=== PATIENT | male | born 1955 | race Caucasian/White ===

== ENCOUNTER 2023-03-31 14:00 | Emergency (ER) | payer MEDICARE, SELFPAY ==
[2023-03-31] VITALS (44 sets, daily range): BP systolic 113–169; BP diastolic 70–94; PULSE 69–91; RESP 13–30; TEMP 36.4; O2SAT 93–98; BMI 28.5
--- NOTE | 2023-03-31 14:08 | ECG_ITS ---
The 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
--- NOTE | 2023-03-31 14:08 | XR_ITS ---
The [address] [address] Patient Name: GABINO TALBERT MRN: [id number] date: 1955 Sex: M Assigned Patient Location: ER Current Patient Location: ED.MAIN Accession/Order Number: [id number] Exam Date: 03/31/2023 14:30 Report Date: 03/31/2023 14:49 At the request of: GABINO GONSALEZ Procedure: XR chest 1V EXAM: XR chest 1V HISTORY: . chest pain . COMPARISON: None. TECHNIQUE: Single view of the chest FINDINGS: Heart and vascularity are unremarkable. Lungs are free of focal infiltrates. EKG leads overlie the chest. XR/XR chest 1V IMPRESSION: No acute heart or lung disease identified. Electronically authenticated by: BLAS CRUZ Date: 03/31/2023 14:49
[2023-03-31 14:25] LABS: Basophils Percent Auto 0.4 % (0.2-2.0); Eosinophils Absolute Auto 0.6 10^3/uL (0.0-0.7); Eosinophils Percent Auto 6.7 % (0.9-7.0); Hematocrit 41.3 % (42.0-54.0); Hemoglobin 14.3 g/dL (14.0-18.0); Immature Granulocytes Abs Auto 0.03 10^3/uL (0.00-0.03); Immature Granulocytes Pct Auto 0.3 % (0.0-0.5); Lymphocytes Absolute Auto 1.3 10^3/uL (1.2-3.8); Lymphocytes Percent Auto 14.6 % (20.5-60.0); Mean Corpuscular HGB Conc 34.6 g/dL (29.9-35.2); Mean Corpuscular Hemoglobin 32.4 pg (25.9-34.0); Mean Corpuscular Volume 93.7 fL (80.0-94.0); Mean Platelet Volume 9.6 fL (9.5-13.5); Monocytes Absolute Auto 0.7 10^3/uL (0.3-0.8); Neutrophils Absolute Auto 6.3 10^3/uL (1.4-6.5); Platelet Count 211 10^3/uL (150-450); Red Blood Count 4.41 10^6/uL (4.70-6.10); Red Cell Distribution Width 12.3 % (11.0-15.0)
[2023-03-31 14:47] LABS: Anion Gap 12.4; Calcium 8.9 mg/dL (8.5-10.1); Carbon Dioxide 26.5 mmol/L (21.0-32.0); Chloride 102 mmol/L (98-107); Estimated GFR (African America >60 (>=60); Estimated GFR (Non-African Ame 57 (>=60); Glucose 110 mg/dL (74-106); Potassium 3.9 mmol/L (3.5-5.1); Sodium 137 mmol/L (136-145)
[2023-03-31 14:54] LABS: Troponin I High Sensitivity 227.3 pg/mL (4.0-76.1)
--- NOTE | 2023-03-31 15:52 | ED.CHESTPAI1 ---
HPI - Chest Pain General Chief Complaint: Chest Pain Stated Complaint: CHEST PAIN Time Seen by Provider: 03/31/23 14:07 Source: patient Mode of arrival: walk-in Limitations: no limitations History of Present Illness HPI narrative: 3 days of intermittent anterior chest pressure especially while or after exerting himself. Patient told me that the symptoms has become more persistent over the last 12 hours. Pain is non-radiating. No associated abdominal pain but he has some nausea. No shortness of breath. No recent injury to the chest, no fever or chills. PMHx includes HTN and borderline cholesterol. He told me that he had a stress test about a year ago and it was fine . His PCP is Dr Peterson. Related Data Allergies Allergy/AdvReac Type Severity Reaction Status Date / Time Iodinated Contrast Media Allergy Intermediate Verified 03/31/23 14:05 [facility] Social History Smoking status: Never smoker Exam Narrative Exam Narrative: Nurses notes and vital signs reviewed and patient is not hypoxic. afebrile General: Well-appearing and in no apparent distress. Skin: Warm, dry, no pallor noted. No rash. Eye: Pupils are equal, round and EOMI. No scleral icterus. Cardiovascular: Regular Rate and Rhythm without murmur, gallop or rub. Respiratory: No accessory muscle use or respiratory distress. Lungs are clear to auscultation, no wheezing, rales or rhonchi Chest Wall: no tenderness, crepitus or subcutaneous emphysema Musculoskeletal: normal ROM, no calf or popliteal tenderness, no lower extremity edema/swelling GI: Abdomen is soft, non-distended. Normal bowel sounds. No tenderness to palpation. No rebound, guarding, or rigidity noted. Neurological: A&O x4. No cranial nerve dysfunction observed. No truncal ataxia. Moves all extremities. Sensation intact. Psychiatric: Cooperative and interactive. Normal mood and affect. Constitutional Vital Signs, click to edit/add: Last Vital Signs Temp 97.6 F 03/31/23 14:03 Pulse 78 03/31/23 15:40 Resp 18 03/31/23 15:40 BP 157/87 H 03/31/23 15:37 Pulse Ox 98 03/31/23 15:40 O2 Del Method Room Air 03/31/23 16:45 Course Vital Signs Vital signs: Vital Signs Temperature 97.6 F 03/31/23 14:03 Pulse Rate 83 03/31/23 14:03 Respiratory Rate 16 03/31/23 14:03 Blood Pressure 169/94 H 03/31/23 14:03 Pulse Oximetry 98 03/31/23 14:03 Oxygen Delivery Method Room Air 03/31/23 14:03 Temperature 97.6 F 03/31/23 14:03 Pulse Rate 78 03/31/23 15:40 Respiratory Rate 18 03/31/23 15:40 Blood Pressure 157/87 H 03/31/23 15:37 Pulse Oximetry 98 03/31/23 15:40 Oxygen Delivery Method Room Air 03/31/23 16:45 MDM - Chest Pain MDM Narrative Medical decision making narrative: Patient was placed on athletic monitor and EKG obtained. Blood drawn and sent for evaluation. chest x-ray obtained. Troponin was found to be elevated consistent with non-ST elevation myocardial infarction. He was given aspirin and started on heparin - IV bolus and IV drip. He had a mild amount of anterior chest pressure when I talked with him and therefore he was ordered to receive a dose of sublingual nitroglycerin. Results discussed with the patient and he was agreeable to be transferred to [facility] for further evaluation treatment. I spoke with Dr Rodriguez - the hospitalist - and he accepted the patient's transfer to their facility and admission to [facility]. The patient was informed and is agreeable. Lab Data Attestation: I reviewed the patient's lab results. Labs: Lab Results 03/31/23 Range/Units 14:19 WBC 9.0 (4.0-11.0) 10^3/uL RBC 4.41 L (4.70-6.10) 10^6/uL Hgb 14.3 (14.0-18.0) g/dL Hct 41.3 L (42.0-54.0) % MCV 93.7 (80.0-94.0) fL MCH 32.4 (25.9-34.0) pg MCHC 34.6 (29.9-35.2) g/dL RDW 12.3 (11.0-15.0) % Plt Count 211 (150-450) 10^3/uL MPV 9.6 (9.5-13.5) fL Neut % (Auto) 70.0 (43.0-75.0) % Lymph % (Auto) 14.6 L (20.5-60.0) % [place] % (Auto) 8.0 (1.7-12.0) % Eos % (Auto) 6.7 (0.9-7.0) % Baso % (Auto) 0.4 (0.2-2.0) % Neut # (Auto) 6.3 (1.4-6.5) 10^3/uL Lymph # (Auto) 1.3 (1.2-3.8) 10^3/uL [place] # (Auto) 0.7 (0.3-0.8) 10^3/uL Eos # (Auto) 0.6 (0.0-0.7) 10^3/uL Baso # (Auto) 0.0 (0.0-0.1) 10^3/uL Abs Immat Gran (auto) 0.03 (0.00-0.03) 10^3/uL Imm/Tot Granulo (auto) 0.3 (0.0-0.5) % PT 10.2 (9.0-11.6) sec INR 0.96 APTT 28.1 (22.3-36.2) sec D-Dimer 0.30 (<=0.59) mg/L FEU Sodium 137 (136-145) mmol/L Potassium 3.9 (3.5-5.1) mmol/L Chloride 102 (98-107) mmol/L Carbon Dioxide 26.5 (21.0-32.0) mmol/L Anion Gap 12.4 BUN 15.0 (7.0-18.0) mg/dL Creatinine 1.25 (0.70-1.30) mg/dL Est GFR ( Amer) >60 (>=60) Est GFR (Non-Af Amer) 57 L (>=60) BUN/Creatinine Ratio 12.0 Glucose 110 H (74-106) mg/dL Calcium 8.9 (8.5-10.1) mg/dL Troponin I High Sens 227.3 H* (4.0-76.1) pg/mL NT-Pro-B Natriuret Pep 121.0 (<=900.0) pg/mL ECG Data Attestation: I personally reviewed and interpreted this ECG as follows: Interpretation: EKG interpretation: Emergency Department physician interpretation. Normal sinus rhythm at 72bpm. Normal axis, normal intervals and T wave inversion in lead aVL. no ST segment elevation or depression. Discharge Plan Discharge Chief Complaint: Chest Pain Clinical Impression: Acute non-ST elevation myocardial infarction (NSTEMI) Patient Disposition: [facility] Time of Disposition Decision: 17:50 Discharge Location: [facility]
[2023-03-31 16:05] LABS: INR 0.96; Prothrombin Time 10.2 sec (9.0-11.6)
[2023-03-31 16:06] LABS: Partial Thromboplastin Time 28.1 sec (22.3-36.2)
[2023-03-31] MEDS: ASPIRIN 81 MG TAB.CHEW 162 MG PO (16:06)
[2023-03-31] MEDS: NITROGLYCERIN 0.4 MG BOTTLE PO (16:06)
[2023-03-31] MEDS: HEPARIN SODIUM (PORCINE) 5,000 UNIT/ML VIAL 4000 UNIT IV (16:08)
[2023-03-31] MEDS: HEPARIN SODIUM,PORCINE/D5W 25,000 UNIT/500 ML IV.SOLN 22.861 UNIT IV (16:11)
[2023-03-31 18:31] LABS: Troponin I High Sensitivity 381.2 pg/mL (4.0-76.1)
== END 2023-03-31 19:23 | disposition short-term general hospital (02) ==
PROVIDERS: Emergency Provider Emergency Medicine; PCP Family Medicine
DX: I21.4 Non-ST elevation (NSTEMI) myocardial infarction (principal); I10 Essential (primary) hypertension
CPT/HCPCS: 36415; 71045; 80048; 83880; 84484; 85025; 85378; 85610; 85730; 93005; 96374; 99285

== ENCOUNTER 2023-06-21 10:46 | Outpatient (OUT) | payer MEDICARE, SELFPAY ==
[2023-06-21 11:48] LABS: Prostate Specific Antigen Dx 4.35 ng/mL (<=4.00)
== END 2023-06-21 10:47 | disposition home or self-care (01) ==
LOC: LAB 10:48
PROVIDERS: PCP Family Medicine; Visit Provider Physician Assistant
DX: N40.1 Benign prostatic hyperplasia with lower urinary tract symptoms (principal)
CPT/HCPCS: 36415; 84153

== ENCOUNTER 2024-06-23 08:00 | Outpatient (OUT) | payer MEDICARE, SELFPAY ==
--- OUTSIDE RECORDS SUMMARY | 2024-06-23 08:18 | XMS_ITS | CCD ---
Author Organization [facility] Care Team Providers Care Public Relations Intern Name Role Phone MARKO CISNEROS Primary Care Physician Marko Cisneros BLAYNE, DR MARKO Egan Primary Care Unavailable DANIEL Ramirez, DR CHRIS Goel Consulting Unavaila ble DANIEL Ramirez, DR CHRIS Goel Attending Unavaila ble DANIEL Ramirez, DR CHRIS Goel Admitting Unavaila ble CISNEROS, DR MARKO Egan Primary Care Unavailable WEST, DR BLAS Cortes Consulting Unavailable LILLIAN ., DMOINIQUE Attending Unavailable LILLIAN ., DOMINIQUE Admitting Unavailable LILLIAN ., DOMINIQUE Consulting Unavailable BLAYNE, DR MARKO Egan Primary Care Unavailable REQUEST, DR CRAVEN LISTED Attending Unavaila ble REQUEST, DR CRAVEN LISTED Admitting Unavaila ble REQUEST, DR CRAVEN LISTED Consulting Unavaila ble ZIEBER, DR MAYRA Darling Consulting Unavailable CISNEROS, DR MARKO Egan Attending Unavailable CISNEROS, DR MARKO Egan Admitting Unavailable CISNEROS, DR MARKO Egan Primary Care Unavailable CISNEROS, DR MARKO Egan Consulting Unavailable CISNEROS, DR MARKO Egan Consulting Unavailable CISNEROS, DR MARKO Egan Attending Unavailable CISNEROS, DR MARKO Egan Admitting Unavailable CISNEROS, DR MARKO Egan Primary Care Unavailable MD Marko Cisneros Primary Care Provider [phone] DO Shyam Rodriguez Admit Provider MD Gold Yadav Other Provider MD Meagan Crespo Other Provider MD Kay Martini Attending Provider Meagan Crespo Unavailable Zina Bishop Unavailable EBEN TEE Attending Unavailable ZINA BISHOP Referring Unavailable Marko Cisneros MD Primary Care Provider Carolyn Mccartney MD Attending Provider [phone] LILIANA HEREDIA Attending LILIANA Frausto Attending Carolyn Carlisle Admitting Unavailable Carolyn Mccartney Attending Marko Cardenas Primary Care Unavailable Allergies Allergy Classification Reported Allergen(s) Allergy Type Date of Onset Reaction(s) Facility (3 sources) Contrast media; 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: [Contrast Dye] Drug allergy Unknown (qualifier value) [facility] (12 sources) Terazosin; 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: [terazosin] Drug Allergy 11-02-19 18 Syncope (disorder) [facility] (7 sources) Contrast media Propensity to adverse reactions Unknown [facility] Other (4 sources) moxifloxacin Drug Allergy Unknown [facility] Other (1 source) Fluorouracil Drug Allergy [facility] (1 source) Iodine (And Iodine Containting Drugs) Drug allergy (disorder) [facility] (2 sources) Allergies Reconciled Propensity to adverse reactions Unknown [facility] Other (2 sources) patient allergy list reviewed by nurse or physicia Propensity to adverse reactions 12-26-19 Comment:Done [facility] Other (10 sources) Avelox *FLUOROQUINOLONE S* Propensity to adverse reactions 08-07-19 15 Unknown, [facility] Comment on above: Onset Date: 08/07/19 15 (6 sources) Gadolinium-Conta ining Contrast Medi Propensity to adverse reactions 03-31-20 23 [facility] (6 sources) Iodinated [facility] Media Propensity to adverse reactions 03-31-20 23 Hives, Difficulty Breathing [facility] (5 sources) Terazosin Drug Allergy 08-08-19 24 Unknown Reaction [facility] Comment on above: Onset Date: 11/02/19 18 Medications Current Medications Medication Drug Class(es) Dates Sig (Normalized) Sig (Original) Aspir-81 (5 sources) Aspir-81 Active aspirin 81 mg chewable tablet (8 sources) Platelet Aggregation Inhibitor, Nonsteroidal Anti-inflammatory Drug Start: 04-01-2023 take 1 tablet by mouth once daily Aspirin 81 mg Tablet,Chewable Active 81 MG PO Daily April 01, 2023 12:00am take 1 tablet by didier th every twenty-four hours Aspirin Adult Low Dose 81 MG 1 tablet Orally Once a day Active atorvastatin 40 mg oral tablet (19 sources) HMG-CoA Reductase Inhibitor Start: 05-29-2024 take 1 tablet by mouth once daily Atorvastatin 40 mg tablet Active 40 MG PO Daily May 29, 2024 11:41am Start: 07-29-2023 End: 05-29-2024 take 1 tablet by mouth once daily in the evening Atorvastatin 40 mg tablet Discontinued 0 .ROUTE .COMPLEX 90 January 07, 2024 7:31am May 29, 2024 11:41am TAKE 1 TABLET BY MOUTH EVERY EVENING Start: 04-02-2023 End: 07-29-2023 take 1 tablet by mouth once daily in the evening Atorvastatin 40 mg Tablet Discontinued 40 MG PO Every evening 30 April 02, 2023 12:00am July 29, 2023 12:09pm carvedilol 6.25 mg oral tablet (19 sources) alpha-Adrenergic Jessica, beta-Adrenergic Jessica Start: 05-29-2024 take 1 tablet by mouth twice daily Carvedilol 6.25 mg tablet Active 6.25 MG PO Twice daily May 29, 2024 11:41am Start: 07-29-2023 End: 05-29-2024 take 1 tablet by mouth twice daily at mealtime Carvedilol 6.25 mg tablet Discontinued 0 .ROUTE .COMPLEX 180 January 07, 2024 7:31am May 29, 2024 11:41am TAKE 1 TABLET BY MOUTH TWICE DAILY WITH MEALS FOR 30 DAYS Start: 04-02-2023 End: 07-29-2023 take 1 tablet by mouth twice daily at mealtime Carvedilol 6.25 mg Tablet Discontinued 6.25 MG PO Twice daily with meals April 02, 2023 12:00am July 29, 2023 12:09pm doxycycline monohydrate 100 mg oral capsule (1 source) Tetracycline-class Drug Start: 05-04-2023 take 1 capsule by mouth every twelve hours Doxycycline Monohydrate 100 MG 1 capsule Orally every 12 hrs for 10 days Apr, Active losartan potassium 25 mg oral tablet (20 sources) Angiotensin 2 Receptor Jessica Start: 01-10-2025 take 1 tablet by mouth once daily Losartan 25 mg tablet Active 25 MG PO Daily May 29, 2024 11:41am Start: 07-12-2023 End: 05-29-2024 take 1 tablet by mouth once daily Losartan 25 mg tablet Discontinued 0 .ROUTE .COMPLEX 90 January 07, 2024 7:31am May 29, 2024 11:41am TAKE 1 TABLET BY MOUTH EVERY DAY Start: 06-14-2022 End: 07-12-2023 take 1 tablet by mouth once daily Losartan 25 mg tablet Discontinued 25 MG PO Daily April 01, 2023 12:00am July 12, 2023 10:02am Nitro Sublingual 0.4 (1 source) Nitro Sublingual 0.4 Active nitroglycerin 0.4 mg sublingual tablet (8 sources) Nitrate Vasodilator Start: 04-02-2023 Nitroglycerin 0.4 mg tablet, sublingual Active 0.4 MG SUBLINGUAL Q5M as needed for chest pain April 02, 2023 12:00am do not exceed 3 doses per episode Nitroglycerin 0. 4 MG as directed for chest pain take one every 5 mins X 3 Active Oxymetazoline (1 source) Oxymetazoline HC l 0.05 % 4 sprays (2 sprays in each nostril) Nasally Twice a day Active predniSONE 20 mg oral tablet (1 source) Start: 05-04-20 take 1 tablet by mouth every twelve hours prednisone 20 MG 1 tablet Orally BID for 5 Apr, Active tamsulosin hydrochloride 0.4 mg oral capsule (2 sources) alpha-Adrenergic Jessica Start: 06-19-19 take 1 capsule by mouth once daily Flomax 0.4 mg Cap 0.4 mg = 1 cap(s), Oral, Daily, start 3-5 days prior to flying, # 30 cap(s), Refills(s) 0, Pharmacy: [facility]/pharmacy #[id number], 184, cm, 06/19/22 8:33:00 EST, Height/Length Dosing, 91, kg, 06/19/22 8:33:00 EST, Weight Dosing Start Date: 06/19/22 Status: Ordered triamcinolone acetonide 0.055 mg/actuat metered dose nasal spray (2 sources) Corticosteroid Start: 05-21-19 20 Nasacort Allergy 24HR nasal spray spray(s), Nasal, Daily, Refill(s) 0 Start Date: 05/21/19 Status: Ordered Completed/Discontinued Medications Medication Drug Class(es) Dates Sig (Normalized) Sig (Original) amoxicillin 875 mg / clavulanate 125 mg oral tablet (3 sources) Penicillin-class Antibacterial Start: 04-22-2024 End: 05-29-2024 take 1 tablet by mouth twice daily Amoxicillin-Pot Clavulanate 875-125 mg tablet Discontinued 1 TAB PO Twice daily April 22, 2024 12:00am May 29, 2024 11:40am Start: 03-15-2023 take 1 tablet by didier th every twelve hours Amoxicillin-Pot Clavulanate 875-125 MG 1 tablet Orally every 12 hrs for 10 day(s) Feb, Active fluticasone furoate 0.0275 mg/actuat metered dose nasal spray (5 sources) Corticosteroid Flonase Sensimis t 27.5 MCG/SPRAY 2 sprays (1 spray in each nostril) Nasally Once a day for 30 days Not-Taking/PRN Flonase Sensimis t 27.5 MCG/SPRAY 2 sprays (1 spray in each nostril) Nasally Once a day for 30 days Active lovastatin 20 mg oral tablet (2 sources) HMG-CoA Reductase Inhibitor Start: 06-14-2022 take 1 tablet by mouth once daily lovastatin 20 mg Tab 90 EA, TAKE 1 TABLET BY MOUTH EVERY DAY, Refills(s) 0 Start Date: 06/14/22 Status: Ordered pantoprazole 40 mg delayed release oral tablet (2 sources) Proton Pump Inhibitor Start: 04-02-2024 End: 05-29-2024 take 1 tablet by mouth once daily Pantoprazole 40 mg tablet,delayed release (DR/EC) Discontinued 40 MG PO Daily 56 56 April 02, 2024 12:00am May 29, 2024 11:40am ticagrelor 90 mg oral tablet (9 sources) Start: 04-02-2023 End: 04-14-2024 take 1 tablet by mouth twice daily Ticagrelor (Brilinta) 90 mg Tablet Discontinued 90 MG PO Twice daily 180 90 April 02, 2023 12:00am April 14, 2024 12:02pm Problems Active Problems Problem Classification Problem Date Documented Da te Episodic/Chronic Abdominal pain (6 sources) Epigastric pain; 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: [Epigastric pain] 03-11-2024 Episodic Acute myocardial infarction (12 sources) Myocardial infarction; 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: [Non-ST elevation (NSTEMI) myocardial infarction] 03-31-2023 Chronic Comment on above: Problem List clean-u p per request of Phys. EHR Cmte Allergic reactions (2 sources) Allergic contact dermatitis; 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: [Allergic contact dermatitis, unspecified cause] Episodic Coronary atherosclerosis and other heart disease (11 sources) Coronary arteriosclerosis; 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: [Atherosclerotic heart disease of [place] coronary artery without angina pectoris] Chronic Disorders of lipid metabolism (20 sources) Hyperlipidemia; 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: [Hyperlipidemia, unspecified] 05-06-2019 Chronic Comment on above: Problem List clean-u p per request of Phys. EHR Cmte Esophageal disorders (6 sources) Gastroesophageal reflux disease; 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: [Gastro-esophageal reflux disease without esophagitis] 03-11-2024 Chronic Essential hypertension (20 sources) Hypertensive disorder; 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: [Essential hypertension] Onset: 8 05-06-2019 Chronic Comment on above: Problem List clean-u p per request of Phys. EHR Cmte Genitourinary symptoms and ill-defined conditions (12 sources) Dysuria; 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: [Seth hematuria] 05-06-2019 Episodic Heart valve disorders (1 source) Nonrheumatic pulmonary valve insufficiency; 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: [NONRHEUMATIC PULMONARY VALVE INSUFF] Onset: 3 Chronic Hyperplasia of prostate (4 sources) Benign prostatic hypertrophy with outflow obstruction; 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: [Benign prostatic hyperplasia with lower urinary tract symptoms] Onset: 3 Chronic Nonspecific chest pain (7 sources) Chest pain, unspecified; 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: [Other chest pain] Onset: 3 Episodic Other aftercare (1 source) 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; 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: [OTH CARE HOME CURRENT DRUG THERAPY] Onset: 3 Episodic Other circulatory disease (2 sources) Elevated blood-pressure reading without diagnosis of hypertension; 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: [Elevated blood-pressure reading, without diagnosis of hypertension] Episodic Other congenital anomalies (2 sources) Congenital spondylolysis of lumbosacral region; 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: [Congenital spondylolysis, lumbosacral region] Onset: 7 Chronic Other diseases of kidney and ureters (1 source) Urinary tract obstruction; 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: [Other obstructive and reflux uropathy] Onset: 3 Episodic Other gastrointestinal disorders (3 sources) Dysphagia; 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: [Dysphagia, unspecified] 03-11-2024 Episodic Other gastrointestinal disorders (3 sources) Dysphagia, unspecified; 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: [Dysphagia, unspecified] 03-11-2024 Episodic Other male genital disorders (2 sources) Impotence 05-24-2020 Chronic Other nutritional; endocrine; and metabolic disorders (2 sources) Body mass index 25-29 - overweight; 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: [Body mass index (BMI) 27.0-27.9, adult] Episodic Other screening for suspected conditions (not mental disorders or infectious disease) (7 sources) Raised prostate specific antigen; 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: [Elevated prostate specific antigen [PSA]] Onset: 3 Episodic Other upper respiratory disease (14 sources) Allergic rhinitis; 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: [Allergic rhinitis, unspecified] Onset: 5 08-08-2023 Chronic Other upper respiratory infections (3 sources) Acute recurrent maxillary sinusitis; 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: [Acute maxillary sinusitis] Episodic Otitis media and related conditions (1 source) Unspecified nonsuppurative otitis media, left ear Episodic Screening and history of mental health and substance abuse codes (3 sources) H/O: Disorder; 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: [Personal history of nicotine dependence] Onset: 3 Episodic Spondylosis; intervertebral disc disorders; other back problems (4 sources) Low back pain; 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: [Low back pain, unspecified] Onset: 7 Episodic Unclassified (2 sources) Finding of sensation of bladder 05-06-2019 Unclassified (1 source) CONTACT W/AND (SUSP) EXPOS COVID-19; 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: [CONTACT W/AND (SUSP) EXPOS COVID-19] Onset: 3 Past or Other Problems Problem Classification Problem Date Documented Da te Episodic/Chronic Other lower respiratory disease (4 sources) Dyspnea; 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: [Dyspnea, unspecified] Onset: 08-06-2014 Episodic Results Test Name Value Interpretation Reference Range Facility Pathology study report docum entOrdered By: Hua Rebollar on 04-03-2024 Pathology study [facility] Other Phone: Bebeto 04-02-2024 L -- ---- Specimen: [id number] Received: 04/02/24 Status: THEODORA Garcia Num: [id number] Spec Type: Surgical Subm Dr: Carolyn Mccartney MD Tissues: A Small Intestine - Biopsy/Polyp (SMALL BOWEL BX'S R/O CELIAC) B GASTRIC FOR HP (GASTRIC BX'S R/O H PYLORI) Procedures: HE/4, Gross/Micro L4/2, H PYLORI ---- Age/ Patient Sex Location Account Attending Physician ---- Rosalino Paez/M [id number] Carolyn Mccartney MD ---- SPEC NUM: [id number] RECD: 04/02/24 STATUS: THEODORA GARCIA NUM: [id number] SHIELA: 04/02/[address] [facility] [address]: Carolyn Mccartney MD ENTERED: 04/02/24 [facility] [address]: SPEC TYPE: Surgical DEPT: S ENTERED BY: [id number] RECV BY: [id number] ORDERED: HE/4, Gross/Micro L4/2, H PYLORI ORDERED: HE/4, Gross/Micro L4/2, H PYLORI Supplemental Report Addendum 1 Entered: 04/09/24 To issue extradepartmental consultation from Dr. Muñiz at [facility]. Also see scanned report. A. Small bowel, biopsy: - Small bowel mucosa with reactive epithelial changes including foveolar surface cell metaplasia. B. Stomach, biopsy: - Gastric antral and oxyntic mucosa with minimal chronic inactive gastritis. - Negative for Helicobacter-type microorganisms on H E stain. Addendum Signed (signature on file) Hua Rebollar MD 04/09/241148 ---- ---- Specimen: [id number] Received: 04/02/24 Status: THEODORA Garcia Num: [id number] Spec Type: Surgical Subm Dr: Carolyn Mccartney MD Tissues: A Small Intestine - Biopsy/Polyp (SMALL BOWEL BX'S R/O CELIAC) B GASTRIC FOR HP (GASTRIC BX'S R/O H PYLORI) Procedures: HE/4, Gross/Micro L4/2, H PYLORI ---- Patient: Rosalino Paez [id number] (Continued) ---- Specimen: [id number] Received: 04/02/24 (Continued) Signed (signature on file) Hua Rebollar MD 04/03/24 1242 ---- Specimen: [id number] Received: 04/02/24 Status: THEODORA Garcia Num: [id number] Spec Type: Surgical Subm Dr: Carolyn Mccartney MD Tissues: A Small Intestine - Biopsy/Polyp (SMALL BOWEL BX'S R/O CELIAC) B GASTRIC FOR HP (GASTRIC BX'S R/O H PYLORI) Procedures: HE/4, Gross/Micro L4/2, H PYLORI ---- Patient: Rosalino Paez [id number] (Continued) ---- Specimen: [id number] Received: 04/02/24 (Continued) Pathological Diagnosis A. Small bowel, biopsy: - Benign small bowel mucosa with focal mucosa erosion and increased lymphoplasmacytic infiltrate in the lamina propria. - See comment. B. Stomach, biopsy: - Antral and oxyntic-type gastric mucosa with minimal chronic inactive gastritis. - No Helicobacter pylori microorganisms identified with immunohistochemical stain. Comment: Correlation with clinical, endoscopic and serology data with determination of anti- endomysial and anti-tissue transglutaminase antibodies is required. Clinical Information Dysphagia, epigastric pain, part a rule out celiac, rule out H. pylori. Gross Description Part A is received in formalin labeled with the patients name, date of , and small bowel BX's are three mata-marie, focally erythematous, friable, 0.2, 0.2 and 0.4 cm in greatest dimension tissue bits. The specimen is entirely submitted in a single cassette. (1, ns, [id number] A) Part B is received in formalin labeled with the patients name, date of , and gastric BX are two mata-marie, focally erythematous, friable, 0.4 cm each in greatest dimension tissue bits. The specimen is entirely submitted in a single cassette. (1, ns, [id number] B) Microscopic Description A B:Microscopic examination is performed. CPT Codes 28254 x2, 74235 ---- ---- Specimen: [id number] Received: 04/02/24 Status: THEODORA Garcia Num: [id number] Spec Type: Surgical Subm Dr: Carolyn Mccartney MD Tissues: A Small Intestine - Biopsy/Polyp (SMALL BOWEL BX'S R/O CELIAC) B GASTRIC FOR (more content not included)... Normal [facility] Lab Reportson 06-26-2023 Lab Reports [id number]#1. 00TIFF Normal [facility] Screenson 06-26-2023 Screens [id number]#1.0 0TIFF [facility] Screens [id number]#1. 00TIFF [facility] Comment on above: Other Comment: LEXI Pennington ERROR Screens [id number]#1.0 0TIFF [facility] Ambulatory Visit Summaryon 0 06-25-2023 Ambulatory Visit Summary ROSALINO PAEZ :1955 Visit Date:06/25/2023 Ambulatory Visit Instructions Your Diagnosis BPH with urinary obstruction Elevated PSA Former smoker Myocardial infarction Your Care Team Attending Physician - GIOVANNA FORD, ANJALI Egan Primary Care Physician - MARKO CISNEROS MD This Is Your Medications List tamsulosin (Flomax 0.4 mg Cap) Contact prescribing physician if questions or concerns aspirin (aspirin 81 mg oral capsule) atorvastatin (atorvastatin 40 mg Tab) carvedilol (carvedilol 6.25 mg Tab) losartan (losartan 25 mg Tab) nitroglycerin (nitroglycerin 0.4 mg sublingual Tab) ticagrelor (Brilinta (ticagrelor) 90 mg oral tablet) triamcinolone nasal (Nasacort Allergy 24HR nasal spray) Procedures Performed Transurethral resection of prostate (08/27/2018), Cystoscopy (08/18/2018), Transrectal biopsy of prostate using ultrasound (US) guidance (10/30/2017), Transrectal biopsy of prostate using ultrasound (US) guidance (10/13/2010), Diskectomy, Placement of stent in cardiac conduit. Discharge Vitals Heart Rate (Peripheral) 71 Respiratory Rate 16 Blood Pressure 118/70 Height 184 cm Height 72 in Weight 95.5 kg Weight 210.1 lb BMI 28.21 What to do next Scheduled Follow-Up Appointments Saturday 8:20 AM EST With: ANJALI HEREDIA PA-C Where: [facility] Lab Reportson 06-25-2023 Lab Reports [id number] 0TIFF [facility] Patient Educationon 06-25-19 Patient Education Oncology Prostate Cancer Screening Prostate cancer screening is testing that is done to check for the presence of prostate cancer in men. The prostate gland is a walnut-sized gland that is located below the bladder and in front of the rectum in males. The function of the prostate is to add fluid to semen during ejaculation. Prostate cancer is one of the most common types of cancer in men. Who should have prostate cancer screening? Screening recommendations vary based on age and other risk factors, as well as between the professional organizations who make the recommendations. In general, screening is recommended if: ? You are age 50 to 70 and have an average risk for prostate cancer. You should talk with your health care provider about your need for screening and how often screening should be done. Because most prostate cancers are slow growing and will not cause , screening in this age group is generally reserved for men who have a 10- to 15-year life expectancy. ? You are younger than age 50, and you have these risk factors: ? Having a father, brother, or uncle who has been diagnosed with prostate cancer. The risk is higher if your family member's cancer occurred at an early age or if you have multiple family members with prostate cancer at an early age. ? Being a male who is Black or is of [place] or sub-Saharan descent. In general, screening is not recommended if: ? You are younger than age 40. ? You are between the ages of 40 and 49 and you have no risk factors. ? You are 70 years of age or older. At this age, the risks that screening can cause are greater than the benefits that it may provide. If you are at high risk for prostate cancer, your health care provider may recommend that you have screenings more often or that you start screening at a younger age. How is screening for prostate cancer done? The recommended prostate cancer screening test is a blood test called the prostate-specific antigen (PSA) test. PSA is a protein that is made in the prostate. As you age, your prostate naturally produces more PSA. Abnormally high PSA levels may be caused by: ? Prostate cancer. ? An enlarged prostate that is not caused by cancer (benign prostatic hyperplasia, or BPH). This condition is very common in older men. ? A prostate gland infection (prostatitis) or urinary tract infection. ? Certain medicines such as male hormones (like testosterone) or other medicines that raise testosterone levels. A rectal exam may be done as part of prostate cancer screening to help provide information about the size of your prostate gland. When a rectal exam is performed, it should be done after the PSA level is drawn to avoid any effect on the results. Depending on the PSA results, you may need more tests, such as: ? A physical exam to check the size of your prostate gland, if not done as part of screening. ? Blood and imaging tests. ? A procedure to remove tissue samples from your prostate gland for testing (biopsy). This is the only way to know for certain if you have prostate cancer. What are the benefits of prostate cancer screening? ? Screening can help to identify cancer at an early stage, before symptoms start and when the cancer can be treated more easily. ? There is a small chance that screening may lower your risk of dying from prostate cancer. The chance is small because prostate cancer is a slow-growing cancer, and most men with prostate cancer from a different cause. What are the risks of prostate cancer screening? The main risk of prostate cancer screening is diagnosing and treating prostate cancer that would never have caused any symptoms or problems. This is called overdiagnosisand overtreatment. PSA screening cannot tell you if your PSA is high due to cancer or a different cause. A prostate biopsy is the only procedure to diagnose prostate cancer. Even the results of a biopsy may not tell you if your cancer needs to be treated. Slow-growing prostate cancer may not need any treatment other than monitoring, so diagnosing and treating it may cause unnecessary stress or other side effects. Questions to ask your health care provider ? When should I start prostate cancer screening? ? What is my risk for prostate cancer? ? How often do I need screening? ? What type of screening tests do I need? ? How do I get my test results? ? What do my results mean? ? Do I need treatment? Where to find more information ? The [place] [employer]: www.cancer.org ? [place]: www.auanet.org Contact a health care provider if: ? You have difficulty urinating. ? You have pain when you urinate or ejaculate. ? You have blood in your urine or semen. ? You have pain in your back or in the area of your prostate. Summary ? Prostate cancer is a common type of cancer in men. The prostate gland is located below the bladder and in front of the rectum. This gland adds flu (more content not included)... Normal [facility] Urology Office/Clinic Noteon 06-25-2023 Urology Office/Clinic Note Chief Complaint 1yr PSA HPI Staff 1yr PSA DX: BPH & Elevated PSA *Tamsulosin 0.4mg given at time of last encounter for flying. No longer taking. PSA 06/21/23- 4.35 Weaker stream, no difficulty starting/stopping. Denies all other urinary symptoms. Denies any concerns at this time. History of Present Illness staff HPI reviewed and agree. Review of Systems PHQ Score Initial Depression Screen Score: 0 SCORE no fever, chills, malaise, myalgia. no rash/lesions. no chest pain, palpitations, or SOB. no abdominal pain, nausea, vomiting. no unilateral calf swelling, redness, pain Physical Exam Vitals & Measurements HR: 71(Peripheral) RR: 16 BP: 118/70 HT: 72 in HT: 184 cm WT: 95.5 kg WT: 210.1 lb BMI: 28.21 General: nontoxic, NAD Mouth: moist mucosa Lungs: normal respiratory effort Cardio: regular rate, good distal perfusion Abdomen: nondistended, no suprapubic distention or tenderness, no CVA tenderness Neurologic: Grossly normal Skin: No rashes or suspicious lesions Assessment/Plan ANTOINETTE 6 1. BPH with urinary obstruction (N40.1: Benign prostatic hyperplasia with lower urinary tract symptoms) S/p TURP 2019 Terazosin is listed as an allergy due to fainting. Pt was prescribed Flomax at last visit prior to flying due to hx of developing retention following a trip to [place]. Pt only uses when traveling. Pt states they are planning a trip to [place] later this year. Advised pt to call the office if he needs a refill of Flomax. UA today shows trace leuks. Asx currently. IPSS 2, QoL 0. Weaker stream, no difficulty starting/stopping. -continue to monitor. Flomax PRN w travel. 2. Elevated PSA (R97.20: Elevated prostate specific antigen [PSA]) PSA: 2018 - 8.3 06/13/22 - 5.14 06/21/23 - 4.35 S/p neg TRUS/bx 2018. Decrease in PSA which is favorable. -PSA due in 1 year 3. Former smoker (Z87.891: Personal history of nicotine dependence) No recent gross hematuria. UA today neg. 4. Myocardial infarction (I21.9: Acute myocardial infarction, unspecified) Recent [place] 03/2023. States it was a maker. Pt has 2 heart stents. Taking Brilinta and ASA. Follow-up With When Contact Information GIOVANNA FORD, ANJALI Egan, URL [id number] [place] [address] Additional Instructions: 1 year w/ PSA Patient Education Prostate Cancer Screening Documentation recorded by the milo Britton accurately reflects the services(s) I performed and decisions made by me. Authenticated by Anjali Heredia PA-C on 06/25/2023 09:03:05. Fe Palm, personally scribed for Anjali Heredia PA-C on 06/25/2023 08:48:29. . Problem List/Past Medical History Ongoing BPH with urinary obstruction Dysuria Elevated PSA Erectile dysfunction Feeling of incomplete bladder emptying Former smoker Gross hematuria HTN (hypertension) Hyperlipidemia Myocardial infarction Nocturia Retention of urine Urinary urgency Weak urinary stream Historical No qualifying data Procedure/Surgical History Transurethral resection of prostate (08/27/2018), Cystoscopy (08/18/2018), Transrectal biopsy of prostate using ultrasound (US) guidance (10/30/2017), Transrectal biopsy of prostate using ultrasound (US) guidance (10/13/2010), Diskectomy, Placement of stent in cardiac conduit. Medications aspirin 81 mg oral capsule, Oral, q24hr atorvastatin 40 mg Tab Brilinta (ticagrelor) 90 mg oral tablet carvedilol 6.25 mg Tab Flomax 0.4 mg Cap, 0.4 mg= 1 cap(s), Oral, Daily, Not taking losartan 25 mg Tab Nasacort Allergy 24HR nasal spray, Nasal, Daily nitroglycerin 0.4 mg sublingual Tab, 0.4 mg= 1 tab(s), SubLingual, q5min, PRN Allergies terazosin (Fainting) Contrast Dye (Sinus congestion) Social History Alcohol - Low Risk, 05/21/2019 Tobacco Former smoker, quit more than 30 days ago Tobacco Use:. Never Smokeless Tobacco Use:. Cigarettes, Household tobacco concerns: No. Yes, 06/25/2023 Family History Prostate cancer: Father. Renal failure: Father. Immunizations Vaccine Date Status SARS-CoV-2 (COVID-19) Ad26 vaccine 11/26/2020 Recorded Lab Results Ambulatory Point of Care Results Bilirubin Urine Dipstick: Negative (06/25/23 08:23:00) Blood Urine Dipstick: Negative (06/25/23 08:23:00) Glucose Urine Dipstick: Negative (06/25/23 08:23:00) Ketones Urine Dipstick: Negative (06/25/23 08:23:00) Leukocytes Urine Dipstick: Trace (06/25/23 08:23:00) Nitrite Urine Dipstick: Negative (06/25/23 08:23:00) Protein Urine Dipstick: Negative (06/25/23 08:23:00) Specific [place] Urine Dipstick: 1.020 (06/25/23 08:23:00) Urine Appearance Urine Dipstick: Clear (06/25/23 08:23:00) Urine Color Urine Dipstick: Yellow (06/25/23 08:23:00) Urobilinogen Urine Dipstick: Normal 0.2-1 EU/dl (06/25/23 08:23:00) pH Urine Dipstick: 6 (06/25/23 08:23:00) Normal [facility] Comment on above: Result Comment: Elec tronically Signed By: ANJALI HEREDIA PA-C\.br\Date and Time Signed: 06/25/23 09:03 EST\.br\Electronically Co-Signed By: Fe Britton\.br\Date and Time Co-Signed: 06/25/23 08:49 EST Basophils Auto (Bld) [#/Vol] Ordered By: Shyam Rodriguez on 04-02-2023 Basophils (Bld) [#/Vol] 0.0 10*3/uL 0.0-0.2 [facility] Basophils/100 WBC Auto (Bld) Ordered By: Shyam Rodriguez on 04-02-2023 Basophils/100 WBC (Bld) 0.1 % . F [facility] Calcium [Mass/volume] in Ser um or PlasmaOrdered By: Shyam Rodriguez on 04-02-2023 Calcium [Mass/Vol] 9.4 mg/dL 8.6-10.3 [facility] Carbon dioxide, total [Moles /volume] in Serum or PlasmaOrdered By: Shyam Rodriguez on 04-02-2023 CO2 [Moles/Vol] 21.2 mmol/L 21.0-31.0 [facility] Chloride [Moles/volume] in S laura or PlasmaOrdered By: Shyam Rodriguez on 04-02-2023 Chloride [Moles/Vol] 106 mmol/L 98-107 [facility] Creatinine [Mass/volume] in Serum or PlasmaOrdered By: Shyam Rodriguez on 04-02-2023 Creatinine [Mass/Vol] 1.35 mg/dL 0.70-1.30 [facility] Eosinophils Auto (Bld) [#/Vo l]Ordered By: Shyam Rodriguez on 04-02-2023 Eosinophils (Bld) [#/Vol] 0.0 10*3/uL 0.0-0.45 [facility] Eosinophils/100 WBC Auto (Bl d)Ordered By: Shyam Rodriguez on 04-02-2023 Eosinophils/100 WBC (Bld) 0.0 % . [facility] Erythrocyte distribution wid th Auto (RBC) [Ratio]Ordered By: Shyam Rodriguez on 04-02-2023 Erythrocyte distribution width (RBC) [Ratio] 13.1 % 12.0-14.8 [facility] Glucose [Mass/volume] in Ser um or PlasmaOrdered By: Shyam Rodriguez on 04-02-2023 Glucose [Mass/Vol] 157 mg/dL 70-100 [facility] Comment on above: ADA recommended refe rence rangeRandom Glucose Reference Range is dependent on time and content of last meal. Glucose of more than 200 mg/dL in a nonstressed, ambulatory subject supports the diagnosis of Diabetes Mellitus. Hematocrit Auto (Bld) [Volum e fraction]Ordered By: Shyam Rodriguez on 04-02-2023 Hematocrit (Bld) [Volume fraction] 43.0 % 38.8-50.0 [facility] Hemoglobin [Mass/volume] in BloodOrdered By: Shyam Rodriguez on 04-02-2023 Hemoglobin (Bld) [Mass/Vol] 14.6 g/dL 13.0-17.0 [facility] Leukocytes [#/volume] correc roxanne for nucleated erythrocytes in Blood by Automated counOrdered By: Shyam Rodriguez on 04-02-2023 WBC corrected for nucl RBC Auto (Bld) [#/Vol] 15.1 10*3/uL 4.1-10.5 [facility] Lymphocytes Auto (Bld) [#/Vo l]Ordered By: Shyam Rodriguez on 04-02-2023 Lymphocytes (Bld) [#/Vol] 0.5 10*3/uL 1.00-4.8 [facility] Lymphocytes/100 WBC Auto (Bl d)Ordered By: Shyam Rodriguez on 04-02-2023 Lymphocytes/100 WBC (Bld) 3.2 % . [facility] MCH Auto (RBC) [Entitic mass ]Ordered By: Shyam Rodriguez on 04-02-2023 MCH (RBC) [Entitic mass] 31.4 pg 27.5-35.2 [facility] MCHC Auto (RBC) [Mass/Vol]Or dered By: Shyam Rodriguez on 04-02-2023 MCHC (RBC) [Mass/Vol] 33.9 g/dL 32.5-35.[address] [facility] MCV Auto (RBC) [Entitic vol] Ordered By: Shyam Rodriguez on 04-02-2023 MCV (RBC) [Entitic vol] 92.7 fL 83.5-101 [facility] Magnesium [Mass/volume] in S laura or PlasmaOrdered By: Shyam Rodriguez on 04-02-2023 Magnesium [Mass/Vol] 2.2 mg/dL 1.9-2.7 [facility] Monocytes Auto (Bld) [#/Vol] Ordered By: Syham Rodriguez on 04-02-2023 Monocytes (Bld) [#/Vol] 0.2 10*3/uL 0.0-0.8 [facility] Monocytes/100 WBC Auto (Bld) Ordered By: Shyam Rodriguez on 04-02-2023 Monocytes/100 WBC (Bld) 1.6 % . F [facility] Neutrophils Auto (Bld) [#/Vo l]Ordered By: Shyam Rodriguez on 04-02-2023 Neutrophils (Bld) [#/Vol] 14.4 10*3/uL 1.8-7.7 [facility] Neutrophils/100 WBC Auto (Bl d)Ordered By: Shyam Rodriguez on 04-02-2023 Neutrophils/100 WBC (Bld) 95.1 % . [facility] No Panel InformationOrdered By: Shyam Rodriguez on 04-02-2023 Estimated GFR (CKD-EPI) 56.834 mL/Min [facility] Creatinine Clearance (Chem 62.41 [facility] Nucleated erythrocytes [Pres ence] in Blood by Automated countOrdered By: Shyam Rodriguez on 04-02-2023 Nucleated RBC Auto Ql (Bld) 0.1 /100{WBC} 0-0.5 [facility] Platelet mean volume Auto (B ld) [Entitic vol]Ordered By: Shyam Rodriguez on 04-02-2023 Platelet mean volume (Bld) [Entitic vol] 8.3 fL 6.6-10.1 [facility] Platelets Auto (Bld) [#/Vol] Ordered By: Shyam Rodriguez on 04-02-2023 Platelets (Bld) [#/Vol] 232 10*3/uL 150-450 [facility] Potassium [Moles/volume] in Serum or PlasmaOrdered By: Shyam Rodriguez on 04-02-2023 Potassium [Moles/Vol] 3.8 mmol/L 3.5-5.1 [facility] RBC Auto (Bld) [#/Vol]Ordere d By: Shyam Rodriguez on 04-02-2023 RBC (Bld) [#/Vol] 4.64 10*6/uL 3.90-5.60 [facility] Serum or plasma anion gap de terminationOrdered By: Shyam Rodriguez on 04-02-2023 Anion gap [Moles/Vol] 14.6 mmol/L 6.0-15.0 [facility] Sodium [Moles/volume] in Ser um or PlasmaOrdered By: Shyam Rodriguez on 04-02-2023 Sodium [Moles/Vol] 138 mmol/L 136-145 [facility] Troponin I.cardiac [Mass/vol ume] in Serum or Plasma by Detection limit <= 0.01 ng/Ordered By: Inderjit Villegas on 04-02-2023 Troponin I.cardiac DL <= 0.01 ng/mL [Mass/Vol] 320.6 pg/mL 0.0-20.0 [facility] Comment on above: Critical Result : Ca lled to and read back by: RAJENDRA BAUGH at: 04/02/2023 06:00 by:[id number] Urea nitrogen [Mass/volume] in Serum or PlasmaOrdered By: Shyam Rodriguez on 04-02-2023 Urea nitrogen [Mass/Vol] 19 mg/dL 7-25 [facility] WBC Auto (Bld) [#/Vol]Ordere d By: Shyam Rodriguez on 04-02-2023 WBC (Bld) [#/Vol] 15.1 10*3/uL 4.1-10.5 [facility] Activated partial thrombopla stin time (aPTT) in platelet poor plasma by coagulation aOrdered By: Shyam Rodriguez on 04-01-2023 aPTT Coag (PPP) [Time] 174.3 s 25.1-36.5 [facility] Comment on above: A hematocrit value g reater than 55% may lead to inaccurate results in coagulation testing. Patients having hematocrit values >55% require a special collection tube for coagulation studies. Please contact the laboratory at [phone] for redraw instructions. Cholesterol [Mass/volume] in Serum or PlasmaOrdered By: Shyam Rodriguez on 04-01-2023 Cholesterol [Mass/Vol] 224 mg/dL 140-200 [facility] Comment on above: Chol less than 200 m g/dl low riskChol 201-239 mg/dl borderline riskChol 240 mg/dl and greater high risk Cholesterol in LDL Calc [Mas s/Vol]Ordered By: Shyam Rodriguez on 04-01-2023 Cholesterol in LDL [Mass/Vol] 161 mg/dL 0-100 [facility] Comment on above: LDL ATP III CLASSIFI CATIONLDL less than 100 mg/dL OptimalLDL 100-129 mg/dL Near or above optimalLDL 130-159 mg/dL Borderline highLDL 160-189 mg/dL HighLDL greater than 189 mg/dL Very high Cholesterol in VLDL Calc [Ma ss/Vol]Ordered By: Shyam Rodriguez on 04-01-2023 Cholesterol in VLDL [Mass/Vol] 30 mg/dL [facility] Glucose mean value [Mass/vol ume] in Blood Estimated from glycated hemoglobinOrdered By: Shyam Rodriguez on 04-01-2023 Average glucose Estimated from glycated hemoglobin (Bld) [Mass/Vol] 128 mg/dL [facility] Hemoglobin A1c percentageOrd ered By: Shyam Rodriguez on 04-01-2023 HbA1c (Bld) [Mass fraction] 6.1 % 4.3-5.6 [facility] Comment on above: Increased risk for d iabetes: 5.7 - 6.4diabetes: >6.4glycemic control for adults with diabetes: <7.0 Serum or plasma high density lipoprotein (HDL) cholesterol measurementOrdered By: Shyam Rodriguez on 04-01-2023 Cholesterol in HDL [Mass/Vol] 32 mg/dL - [facility] Comment on above: HDL CHOL ATP-III CLA SSIFICATION Cardiovascular RiskHDL > or equal to 60 mg/dL LOWHDL < 40 mg/dL HIGH Serum or plasma total choles terol/high density lipoprotein (HDL) cholesterol mass ratOrdered By: Shyam Rodriguez on 04-01-2023 Cholesterol.total/Lindy sterol in HDL [Mass ratio] 7.0 {ratio} <5.0 [facility] Triglyceride [Mass/volume] i n Serum or PlasmaOrdered By: Shyam Rodriguez on 04-01-2023 Triglyceride [Mass/Vol] 153 mg/dL 0-149 [facility] Comment on above: TRIG ATP III CLASSIF ICATIONTRIG less than 150 mg/dL NormalTRIG 150-199 mg/dL Borderline highTRIG 200-500 mg/dL High TRIG greater than 500 mg/dL Very highStandard traceable to the Center for Disease Conrtrol and Prevention (CDC) test method. NM STRESS/REST MULTIon 08-09 AL STRESS/REST MULTI Patient: MARIAN PAEZ Exam Date: 08/09/2022 : 1955 Gender:M Ordering : DR MARKO CISNEROS M.D. Admission #: [id number] Family : Order #: [id number] CLICK HERE TO VIEW EXAM RADIOLOGY REPORT PROCEDURE: RADIONUCLIDE IMAGING STRESS/REST MULTI COMPARISON: NM STRESS/REST MULTI, 11/21/2017. INDICATIONS: Left sided chest pain TECHNIQUE: Exam Description: Stress/Rest one day protocol gated SPECT Rest Imagin.4 mCi Tc-99m Cardiolite IV on 08/09/2022 Stress Imaging 31.6 mCi Tc-99m Cardiolite IV on 08/09/2022 Exercise Protocol: Mervin Heart Rate (bpm): Rest: 75 Max: 134 PMHR: 88 Blood Pressure: Rest: 140/78 Max: 200/90 Exercise Time: Minutes: 7 Seconds: 0 Stage Reached: Stage: 3 Mets 10.1 Symptoms: Rest and peak stress ECG findings were normal and the exercise portion of the study was normal per attending physician Dr. Bentley Peterson . For more details please see separate cardiac stress test report. FINDINGS: QUALITY OF STUDY: Excellent. PERFUSION DEFECT: None. LOCATION: N/A SIZE: N/A. SEVERITY: N/A. TYPE: N/A. WALL MOTION: Normal. LV SIZE: Normal. 102 mL. TID / TCD: None; 1.0 LVEF: Normal. Calculated EF 64%. SUMMARY: Myocardial perfusion imaging study is NORMAL. CONCLUSION: 1. Normal nuclear medicine myocardial perfusion scan. Dictated by: Mayra Kuo M.D. on 08/10/2022 at 08:05 Approved by: Mayra Kuo M.D. on 08/10/2022 at 08:13 Normal [facility] ECHOCARDIO M/2D COMPLETEon 0 08-07-2022 ECHOCARDIO M/2D COMPLETE Patient: ROSALINO PAEZ Exam Date: 08/07/2022 : 1955 Gender:M Ordering : DR MARKO CISNREOS M.D. Admission #: [id number] Family : Order #: [id number] CLICK HERE TO VIEW EXAM ECHOCARDIOGRAM REPORT PROCEDURE: CARDIO PULMONARY ECHOCARDIO M/2D COMP INDICATIONS: Chest pain, hypertension COMPARISON: None. DESCRIPTION: COMPLETE ECHOCARDIOGRAM Real-time transthoracic echocardiography with 2D, M-mode, spectral and color flow Doppler performed. QUALITY: Technical quality was good. LEFT VENTRICLE: Normal chamber size. Normal left ventricular wall thickness. LV EF: Normal left ventricular ejection fraction, (>55%). DIASTOLIC: Normal diastolic function. ATRIAL SEPTUM: Inadequately seen. LEFT ATRIUM: Normal chamber size. RIGHT ATRIUM: Normal chamber size. RIGHT VENTRICLE: Normal chamber size. Normal right ventricular systolic function. TRICUSPID VALVE: Normal mobility and thickness. No stenosis with trivial regurgitation. MITRAL VALVE: Normal mobility and thickness. No evidence of mitral valve stenosis. There is no mitral annular calcification. No mitral regurgitation. AORTIC VALVE: Normal trileaflet appearance. No visible sclerosis. Normal leaflet mobility. No evidence of aortic valve stenosis. No aortic regurgitation. AORTIC ROOT: Normal diameter and appearance. PULMONIC VALVE: Normal thickness and mobility. No stenosis. Mild regurgitation. PERICARDIUM: No evidence of pericardial effusion. IVC: Collapses with inspirations. CONCLUSION: Global left ventricular systolic function is normal; visually estimated ejection fraction is 55 to 60%. No significant wall motion abnormalities. Normal diastolic function. The right ventricle is normal in size and systolic function. Mild pulmonic regurgitation. Adult Echocardiography Procedure Report Left Ventricle LVEDD (3.7 - 5.6 cm): 4.58 cm LVESD (2.2 - 4.0 cm): 3.30 cm LVIVS thickness (0.6 - 1.2 cm): 1.61 cm LVPW thickness (0.5 - 1.0 cm): 0.95 cm e': 0.14 m/s E - e': 5.18 LVOT Max Gradient: 3.15 mm[Hg] Peak Velocity (LVOT): 0.89 m/s LVOT Diameter 2.37 cm Left Atrium LA Volume Index (2D A2C): 57.98 ml, 57.98 ml Left Atrium Systolic Dimension: 3.16 cm Mitral Valve MV E to A Ratio: 1.00 Mitral Valve A-Wave Peak Velocity: 0.70 m/s Mitral Valve E-Wave Peak Velocity: 0.70 m/s Right Ventricle Aorta AO Root Diam: 3.59 cm Aortic Valve AoV Area (Peak Alan): 3.70 cm2, 3.70 cm2 Peak Velocity(Antegrade Flow): 1.06 m/s Peak Gradient(Antegrade Flow): 4.48 mm[Hg] Mean Velocity(Antegrade Flow): 0.73 m/s Mean Gradient(Antegrade Flow): 2.45 mm[Hg] Velocity Time Integral: 22.16 cm Tricuspid Valve Peak Velocity: 0.45 m/s Pulmonic Valve Peak Velocity: 1.20 m/s, 1.30 m/s Peak Gradient: 5.79 mm[Hg], 6.78 mm[Hg] Right Atrium Right Atrium Systolic Pressure: 23.05 ml, 23.05 ml Dictated by: Anderson Stevenson M.D. on 08/07/2022 at 15:27 Approved by: Anderson Stevenson M.D. on 08/07/2022 at 15:29 Normal [facility] BNPon 07-28-2022 Natriuretic peptide B (Bld) [Mass/Vol] 20.0 pg/mL Normal <=900.0 [facility] Comment on above: Performed By: #### B SEALANT MIXER, CMADM, CMP ####[facility] [address] [place] [address]Dr. Rudy Ortiz CARDIAC GUSTABO ADMITon 023 CK [Catalytic activity/Vol] 109 U/L Normal 39-308 [facility] Comment on above: Performed By: #### B SEALANT MIXER, CMADM, CMP ####[facility] [address] [place] [address]Dr. Rudy Ortiz CK.MB [Mass/Vol] ng/mL Normal <=3.60 [facility] Comment on above: Performed By: #### B SEALANT MIXER, CMADM, CMP ####[facility] [address] [place] [address]Dr. Rudy Ortiz HSTROP 6.6 pg/mL Normal 4.0-76.1 [facility] Comment on above: Result Comment: CUT- OFF POINTS HAVE BEEN ESTABLISHED BASED ON THE FOURTH UNIVERSAL DEFINITIONS OF MYOCARDIAL INFARCTION. THE UPPER REFERENCE LIMIT (URL) OF TROPONIN, DEFINED THE 99TH PERCENTILE OF cTnI DISTRIBUTION IN A REFERENCE POPULATION, HAS BEEN CONFIRMED THE DECISION THRESHOLD FOR TN DIAGNOSIS. Performed By: #### B SEALANT MIXER, CMADM, CMP ####[facility] [address] [place] [address]Dr. Rudy Ortiz ANG 49 ng/mL Normal 16-96 [facility] Comment on above: Performed By: #### B SEALANT MIXER, CMADM, CMP ####[facility] [address] [place] [address]Dr. Rudy Ortiz CBC W MANUAL DIFFon 07-29-19 23 ATYPICAL LYMPH # Normal [facility] Comment on above: Performed By: #### C BCMAN ####[facility] [address] [place] [address]Dr. Rudy Ortiz ATYPICAL LYMPH % Normal [facility] Comment on above: Performed By: #### C BCMAN ####[facility] [address] [place] [address]Dr. Rudy Ortiz BAND # Normal 0.0-0.3 [facility] Comment on above: Performed By: #### C BCEMILEE ####[facility] [address] [place] [address]Dr. Yilan Ortiz BAND % Normal 0-5 [facility] Comment on above: Performed By: #### C BCEMILEE ####[facility] [address] [place] [address]Dr. Yilan Ortiz BASOM # 0.00 103/ul Normal 0.00-0.10 [facility] Comment on above: Performed By: #### C BCEMILEE ####[facility] [address] [place] [address]Dr. Rudy Ortiz BASOM % 0.0 % Critically low 0.2-2.0 [facility] Comment on above: Performed By: #### C TORI ####[facility] [address] [place], [place] [address]Dr. Yilan Ortiz BLAST # Normal [facility] Comment on above: Performed By: #### C TORI ####[facility] [address] [place], [place] [address]Dr. Yilan Ortiz BLAST % Normal [facility] Comment on above: Performed By: #### C TORI ####[facility] [address] [place], [place] [address]Dr. Rudy Ortiz CORRECTED WBC Normal 4.0-11.0 [facility] Comment on above: Performed By: #### C TORI ####[facility] [address] [place], [place] [address]Dr. Yiisabell Ortiz EOS # 0.11 103/ul Normal 0.00-0.70 [facility] Comment on above: Performed By: #### C BCEMILEE ####[facility] [address] [place], [place] [address]Dr. Rudy Ortiz EOS% 2.0 % Normal 0.9-7.0 [facility] Comment on above: Performed By: #### C TORI ####[facility] [address] [place], [place] [address]Dr. Yilan Ortiz HCT 42.9 % Normal 42.0-54.0 [facility] Comment on above: Performed By: #### Delroy VALLE ####[facility] [address] [place], [place] [address]Pi. Rudy Ortiz HGB 14.9 g/dl Normal 14.0-18.0 [facility] Comment on above: Performed By: #### Delroy VALLE ####[facility] [address] [place], [place] [address]Zw. Rudy Ortiz LYMPHM # 0.64 103/ul Critically low 1.20-3.80 [facility] Comment on above: Performed By: #### Delroy VALLE ####[facility] [address] [place] [address]Dr. Rudy Ortiz LYMPHM% 12.0 % Critically low 20.5-60.0 [facility] Comment on above: Performed By: #### Delroy VALLE ####[facility] [address] [place] [address]Dr. Rudy Ortiz MCH 31.6 pg Normal 25.9-34.0 [facility] Comment on above: Performed By: #### Delroy VALLE ####[facility] [address] [place] [address]Dr. Rudy Ortiz MCHC 34.7 g/dl Normal 29.9-35.2 [facility] Comment on above: Performed By: #### Delroy VALLE ####[facility] [address] [place] [address]Dr. Rudy Ortiz MCV 91.1 fL Normal 80.0-94.0 [facility] Comment on above: Performed By: #### Delroy VALLE ####[facility] [address] [place], [place] [address]Fh. Rudy Ortiz METAMYELOCYTE # Normal [facility] Comment on above: Performed By: #### Delroy VALLE ####[facility] [address] [place] [address]Dr. Rudy Ortiz METAMYELOCYTE % Normal [facility] Comment on above: Performed By: #### Delroy VALLE ####[facility] [address] [place] [address]Dr. Rudy Ortiz MONOM# 0.80 103/ul Normal 0.30-0.80 [facility] Comment on above: Performed By: #### C TORI ####[facility] [address] [place] [address]Dr. Rudy Ortiz MONOM% 15.0 % Critically high 1.7-12.0 [facility] Comment on above: Performed By: #### C TORI ####[facility] [address] [place] [address]Dr. Rudy Ortiz MPV 9.6 fL Normal 9.5-13.5 [facility] Comment on above: Performed By: #### C TORI ####[facility] [address] [place], [place] [address]Dr. Rudy Ortiz MYELOCYTE # Normal [facility] Comment on above: Performed By: #### C TORI ####[facility] [address] [place], [place] [address]Dr. Rudy Ortiz MYELOCYTE % Normal [facility] Comment on above: Performed By: #### C TORI ####[facility] [address] [place] [address]Dr. Rudy Ortiz NRBC Normal [facility] Comment on above: Performed By: #### C TORI ####[facility] [address] [place] [address]Dr. Rudy Ortiz PLT 182 103/ul Normal 150-450 [facility] Comment on above: Performed By: #### C TORI ####[facility] System [id number] [place] [id number]. Rudy Ortiz RBC 4.71 106/ul Normal 4.70-6.10 [facility] Comment on above: Performed By: #### C TORI ####[facility] [address] [place], [place] [id number]. Rudy Angel RDW 12.5 % Normal 11.0-15.0 [facility] Comment on above: Performed By: #### C TORI ####[facility] [address] [place], [place] [address]DrAshley Ortiz SEG # 3.76 103/ul Normal 1.40-6.50 [facility] Comment on above: Performed By: #### Delroy VALLE ####[facility] [address] [place], [place] [address]QbAshley Ortiz SEG % 71.0 % Normal 43.0-75.0 [facility] Comment on above: Performed By: #### Dleroy VALLE ####[facility] [address] [place], [place] [address]SqAshley Ortiz WBC 5.3 103/ul Normal 4.0-11.0 [facility] Comment on above: Performed By: #### Delroy VALLE ####[facility] [address] [place], [place] [address]FpDr. Rudy Ortiz Covid-19 PCR ([facility]on 07-18 SARS-CoV-2 (COVID-19) RNA DARIAN+probe Ql (Unsp spec) Not detected Normal NOT DETECTED [facility] Comment on above: Result Comment: When diagnostic testing is negative, the possibility of a false negative should be considered in the context of a patient's recent exposures and the presence of clinical signs and symptoms consistent with SARS-CoV-2. This test is not yet approved or cleared by the [place] FDA. When there are no FDA-approved or cleared tests available, and other criteria are met, FDA can make tests available under an emergency access mechanism called an Emergency Use Authorization (EUA). The EUA for this test is supported by the [place] of Health and Human Service's declaration that circumstances exist to justify the emergency use of in vitro diagnostics for the detection and/or diagnosis of the virus that causes COVID-19. This EUA will remain in effect for the duration of the COVID-19 declaration justifying emergency of IVDs, unless it is terminated or revoked by the FDA (after which the test may no longer be used). Performed By: #### C VDTB #### [facility] [address] [place], [place] [address] Dr. Rudy Ortiz ER URINE PROFILEon 3 Bilirubin Ql (U) Negative Normal NEGATIVE [facility] Comment on above: Performed By: #### TYLER JAY #### [facility] [address] [place] [address] Dr. Rudy Ortiz Clarity (U) CLEAR Normal CLEAR [facility] Comment on above: Performed By: #### SERGIO JAYRO #### [facility] [address] [place] [address] Dr. Rudy Ortiz Color (U) YELLOW Normal YELLOW [facility] Comment on above: Performed By: #### SERGIO JAYRO #### [facility] [address] [place] [address] Dr. Rudy MCKEON A micrscopic examination will be performed if indicated. Normal [facility] Comment on above: Performed By: #### SERGIO JAYRO #### [facility] [address] [place] [address] Dr. Rudy Ortiz Glucose Ql (U) Negative Normal NEGATIVE [facility] Comment on above: Performed By: #### SERGIO JAYRO #### [facility] [address] [place] [address] Dr. Rudy Ortiz Hemoglobin Ql (U) TRACE-INTACT Abnormal NEGATIVE [facility] Comment on above: Performed By: #### SERGIO JAYRO #### [facility] [address] [place] [address] Dr. Rudy Ortiz Ketones Ql (U) Negative Normal NEGATIVE [facility] Comment on above: Performed By: #### SERGIO JAYRO #### [facility] [address] [place] [address] Dr. Rudy Ortiz LEUKOCYTES Negative Normal NEGATIVE [facility] Comment on above: Performed By: #### LAKSHMI JAYICRO #### [facility] [address] [place] [address] Dr. Rudy Ortiz Nitrite Ql (U) Negative Normal NEGATIVE [facility] Comment on above: Performed By: #### LAKSHMI JAYICRO #### [facility] [address] [place] [address] Dr. Rudy Ortiz pH (U) 6.5 [pH] Normal 5-9 [facility] Comment on above: Performed By: #### SERGIO JAYRO #### [facility] [address] [place] [address] [address] Rudy Ortiz Protein (U) [Mass/Vol] 30 mg/dL Abnormal NEGAT KARTHIKEYAN/ TRACE [facility] Comment on above: Performed By: #### SERGIO JAYRO #### [facility] [address] [place] [address] [address] Rudy Ortiz SPEC GRAVITY 1.025 Normal 1.005-<=1.[address] [place] [address] Comment on above: Performed By: #### SERGIO JAYRO #### [facility] [address] [place] [address] Dr. Rudy Ortiz UR MICRO IND INDICATED Normal [facility] Comment on above: Performed By: #### SERGIO JAYRO #### [facility] [address] [place] [address] Dr. Rudy Ortiz Urobilinogen Qn (U) 1.0 {Comfort'U}/dL Normal 0.2 - 1. 0 [facility] Comment on above: Performed By: #### SERGIO JAYRO #### [facility] [address] [place] [address] Dr. Rudy Ortiz PROF 14(COMP METB)on 023 Albumin [Mass/Vol] 4.1 g/dL Normal 3.4-5.0 [facility] Comment on above: Performed By: #### B SEALANT MIXER, CMADM, CMP ####[facility] [address] [place] [address]DrAshley Ortiz Albumin/Globulin [Mass ratio] 1.2 {ratio} Normal [facility] Comment on above: Performed By: #### B SEALANT MIXER, CMADM, CMP ####[facility] [address] [place] [address]DrAshley Ortiz ALP [Catalytic activity/Vol] 68 U/L Normal 46-116 [facility] Comment on above: Performed By: #### B SEALANT MIXER, CMADM, CMP ####[facility] [address] [place] [address]Dr. Rudy Ortiz ALT [Catalytic activity/Vol] 31 U/L Normal 16-63 [facility] Comment on above: Performed By: #### B SEALANT MIXER, CMADM, CMP ####[facility] [address] [place] [address]Dr. Rudy Ortiz Anion gap [Moles/Vol] 16.2 mmol/L Normal [facility] Comment on above: Performed By: #### B SEALANT MIXER, CMADM, CMP ####[facility] [address] [place] [address]Dr. Rudy Ortiz AST [Catalytic activity/Vol] 21 U/L Normal 15-37 [facility] Comment on above: Performed By: #### B SEALANT MIXER, CMADM, CMP ####[facility] [address] [place], [place] [address]Dr. Rudy Ortiz Bilirubin [Mass/Vol] 0.4 mg/dL Normal 0.2-1.0 [facility] Comment on above: Performed By: #### B SEALANT MIXER, CMADM, CMP ####[facility] [address] [place], [place] [address]Dr. Rudy Ortiz Calcium [Mass/Vol] 8.9 mg/dL Normal 8.5-10.1 [facility] Comment on above: Performed By: #### B SEALANT MIXER, CMADM, CMP ####[facility] [address] [place] [address]Dr. Rudy Ortiz Chloride [Moles/Vol] 102 mmol/L Normal 98-107 [facility] Comment on above: Performed By: #### B SEALANT MIXER, CMADM, CMP ####[facility] [address] [place] [address]Dr. Rudy Ortiz CO2 [Moles/Vol] 24.6 mmol/L Normal 21.0-32.0 [facility] Comment on above: Performed By: #### B SEALANT MIXER, CMADM, CMP ####[facility] [address] [place] [address]Dr. Rudy Ortiz Creatinine [Mass/Vol] 1.03 mg/dL Normal 0.70-1.30 [facility] Comment on above: Performed By: #### B SEALANT MIXER, CMADM, CMP ####[facility] [address] [place] [address]Dr. Rudy Ortiz EGFR-AF NORWEGIAN >60 Normal >=60 [facility] Comment on above: Performed By: #### B SEALANT MIXER, CMADM, CMP ####[facility] [address] [place] [address]Dr. Rudy Ortiz EGFR-NON AF NORWEGIAN >60 Normal >=60 [facility] Comment on above: Performed By: #### B SEALANT MIXER, CMADM, CMP ####[facility] [address] [place] [address]Dr. Rudy Ortiz Globulin (S) [Mass/Vol] 3.3 g/dL Normal [facility] Comment on above: Performed By: #### B SEALANT MIXER, CMADM, CMP ####[facility] Fgjqdxlvmy[address] [place] [address]Dr. Rudy Ortiz Glucose [Mass/Vol] 153 mg/dL Critically high 74-106 [facility] Comment on above: Performed By: #### B SEALANT MIXER, CMADM, CMP ####[facility] [address] [place], [place] [address]Dr. Rudy Ortiz Potassium [Moles/Vol] 3.8 mmol/L Normal 3.5-5.1 [facility] Comment on above: Performed By: #### B SEALANT MIXER, CMADM, CMP ####[facility] [address] [place] [address]Dr. Rudy Ortiz Protein [Mass/Vol] 7.4 g/dL Normal 6.4-8.2 [facility] Comment on above: Performed By: #### B SEALANT MIXER, CMADM, CMP ####[facility] [address] [place], [place] [address]Dr. Rudy Ortiz Sodium [Moles/Vol] 139 mmol/L Normal 136-145 [facility] Comment on above: Performed By: #### B SEALANT MIXER, CMADM, CMP ####[facility] [address]pe[address]qps[address] [place] [address]Dr. Rudy Ortiz Urea nitrogen [Mass/Vol] 15.0 mg/dL Normal 7.0-18.0 [facility] Comment on above: Performed By: #### B SEALANT MIXER, CMADM, CMP ####[facility] [address]ex[address] [place] [address]Dr. Rudy Ortiz Urea nitrogen/Creatinine [Mass ratio] 14.6 mg/mg Normal [facility] Comment on above: Performed By: #### B SEALANT MIXER, CMADM, CMP ####[facility] [address] [place] [address]Dr. Rosalinaisabell Ortiz PROTIMEon 07-28-2022 INR Coag (PPP) [Relative time] 0.96 {INR} Normal [facility] Comment on above: Performed By: #### P TT, PT ####[facility] [address] [place], [place] [address]Dr. Rudy Ortiz INR GUIDELINES SEE BELOW Normal [facility] Comment on above: Result Comment: CLARE RED INR: 2.0 - 3.0 CONDITIONS NOT LISTED BELOW 2.5 - 3.5 FOR PROSTHETIC HEART VALVE REPLACEMENT 2.5 - 3.5 RECURRENT THROMBOSIS Performed By: #### P TT, PT ####[facility] [address] [place], [place] [address]Dr. Rosalinaisabell Ortiz PT Coag (PPP) [Time] 10.2 s Normal 9.0-11.6 [facility] Comment on above: Performed By: #### P TT, PT ####[facility] [address] [place], [place] [address]Dr. Rosalinaisabell Ortiz PTTon 07-28-2022 aPTT Coag (Bld) [Time] 29.3 s Normal 22.3-36.2 Th [facility] Comment on above: Performed By: #### P TT, PT ####[facility] [address] [place], [place] [address]Dr. Rudy Angel TROPONIN, HIGH SENSITIVITYon 07-28-2022 HSTROP 6.0 pg/mL Normal 4.0-76.1 [facility] Comment on above: Result Comment: CUT- OFF POINTS HAVE BEEN ESTABLISHED BASED ON THE FOURTH UNIVERSAL DEFINITIONS OF MYOCARDIAL INFARCTION. THE UPPER REFERENCE LIMIT (URL) OF TROPONIN, DEFINED THE 99TH PERCENTILE OF cTnI DISTRIBUTION IN A REFERENCE POPULATION, HAS BEEN CONFIRMED THE DECISION THRESHOLD FOR [place] DIAGNOSIS. Performed By: #### H STROPN #### [facility] [address] [place] [address] Dr. Rudy Ortiz URINE MICROSCOPIC ONLYon BACTERIA NONE SEEN Normal NONE SEEN [facility] Comment on above: Performed By: #### E RUR, UMICRO #### [facility] [address] [place] [address] Dr. Rudy Ortiz Bacteria identified Cx Nom (U) NOT INDICATED Normal [facility] Comment on above: Performed By: #### E RUR, UMICRO #### [facility] [address] [place] [address] Dr. Rudy Ortiz CAST SEEN Abnormal NONE SEEN [facility] Comment on above: Performed By: #### E RUR UMICRO #### [facility] [address] [place] [address] Dr. Rudy Ortiz Crystals LM Nom (Urine sed) NONE SEEN Normal NONE SEEN [facility] Comment on above: Performed By: #### E RUR UMICRO #### [facility] [address] [place] [address] Dr. Rudy Ortiz Epithelial cells LM Ql (Urine sed) NONE SEEN Normal NONE SEEN /RARE [facility] Comment on above: Performed By: #### E RUR UMICRO #### [facility] [address] [place] [address] Dr. Rudy Ortiz MUCOUS TRACE Abnormal NONE SEEN [facility] Comment on above: Performed By: #### E RUR, UMICRO #### [facility] [address] [place] [address] Dr. Rudy Ortiz RBC NONE SEEN Abnormal 0-2 [facility] Comment on above: Performed By: #### E RUR, UMICRO #### [facility] [address] [place] [address] Dr. Rudy Ortiz WBC NONE SEEN Normal NONE SEEN [facility] Comment on above: Performed By: #### E RUR, UMICRO #### [facility] [address] [place] [address] [address] Rudy Ortiz XR CHEST 1 Von 07-28-2022 XR CHEST 1 V EXAMINATION: XR CHES T 1 V HISTORY: CHEST PAIN, UNSPECIFIED COMPARISON: 08/22/2018 TECHNIQUE: AP portable FINDINGS: LUNGS: No significant pulmonary parenchymal abnormalities. VASCULATURE: No increased pulmonary vasculature. PLEURA: No pneumothorax, effusion, or pleural thickening. CARDIAC: No cardiomegaly or cardiac silhouette abnormality. MEDIASTINUM: No visible mass or adenopathy. BONES: No fracture or visible bone lesion. OTHER: Negative. IMPRESSION: No acute disease. Electronically authenticated by: BLAS BLAKE Date: 2022-07-28 10:08 Normal [facility] URINALYSISOrdered By: Jj Elder on 06-19-2022 Bilirubin Ql (U) Negative (06/19/22 9:16 AM) Normal Negative [facility] UA Auto SS Clarity (U) Clear (06/19/22 9:16 AM) Normal Clear [facility] UA Auto SS Color (U) Dark Yellow *ABN* (06/19/22 9:16 AM) Invalid Interpretation Code Yellow [facility] UA Auto SS Epithelial cells.squamous LM.HPF (Urine sed) [#/Area] 0-2 /HPF Normal 0-2/HPF [facility] UA Auto SS Glucose Test strip (U) [Mass/Vol] Negative (06/19/22 9:16 AM) Normal Negative [facility] UA Auto SS Hemoglobin Ql (U) Negative (06/19/22 9:16 AM) Normal Negative [facility] UA Auto SS Ketones (U) [Mass/Vol] Negative (06/19/22 9:16 AM) Normal Negative [facility] UA Auto SS Radar Base.plasma/Radar Base. RBC (Bld) [Mass ratio] 0-3 /HPF Normal 0-3/HPF [facility] UA Auto SS Mucus Ql (Urine sed) Trace (06/19/22 9:16 AM) Normal [facility] UA Auto SS Nitrite Ql (U) Negative (06/19/22 9:16 AM) Normal Negative [facility] UA Auto SS pH (U) 6.0 *NA* (06/19/22 9:16 AM) Invalid Interpretation Code 5.0 - 9.0 [facility] UA Auto SS Protein (U) [Mass/Vol] Negative (06/19/22 9:16 AM) Normal Negative [facility] UA Auto SS Specific gravity (U) [Rel density] 1.025 *NA* (06/19/22 9:16 AM) Invalid Interpretation Code 1.005 - 1.030 [facility] UA Auto SS UA Spec Desc Random Urine (06/19/22 9:16 AM) Normal [facility] UA Auto SS Urobilinogen Qn (U) 0.8212922 {Comfort'U}/dL Normal 0.0 - 1.0 EU/dL [facility] UA Auto SS WBC Auto Ql (U) Negative (06/19/22 9:16 AM) Normal Negative [facility] UA Auto SS WBC LM.HPF (Urine sed) [#/Area] 0-5 /HPF Normal 0-5/HPF [facility] UA Auto SS CBC AUTO DIFFon 01-15-2022 BASO # 0.0 103/ul Normal 0.0-0.1 [facility] Comment on above: Performed By: #### D ATCBC #### [facility] [address] [place] [address] Dr. Rudy Ortiz Basophils/100 WBC (Bld) 0.6 % Normal 0.2-2.0 [facility] Comment on above: Performed By: #### D ATCBC #### [facility] [address] [place] [address] Dr. Rudy Ortiz EO # 0.6 103/ul Normal 0.0-0.7 [facility] Comment on above: Performed By: #### D ATCBC #### [facility] [address] [place] [address] Dr. Rudy Ortiz Eosinophils/100 WBC (Bld) 9.3 % Critically high 0.9-7.0 [facility] Comment on above: Performed By: #### D ATCBC #### [facility] [address] [place] [address] Dr. Rudy Ortiz Erythrocyte distribution width (RBC) [Ratio] 12.5 % Normal 11.0-15.0 [facility] Comment on above: Performed By: #### D ATCBC #### [facility] [address] [place] [address] Dr. Rudy Ortiz Hematocrit (Bld) [Volume fraction] 43.7 % Normal 42.0-54.0 [facility] Comment on above: Performed By: #### D ATCBC #### [facility] [address] [place] [address] [address] Rudy Ortiz Hemoglobin (Bld) [Mass/Vol] 14.8 g/dL Normal 14.0-18.0 [facility] Comment on above: Performed By: #### D ATCBC #### [facility] [address] [place] [address] [address] Rudy Ortiz IG # 0.02 10e3/ul Normal 0.00-0.03 [facility] Comment on above: Performed By: #### D ATCBC #### [facility] [address] [place] [address] Dr. Rudy Ortiz IG % 0.3 % Normal 0.0-0.5 [facility] Comment on above: Performed By: #### D ATCBC #### [facility] [address] [place] [address] Dr. Rudy Ortiz LYMPH # 1.3 103/ul Normal 1.2-3.8 [facility] Comment on above: Performed By: #### D ATCBC #### [facility] [address] [place] [address] Dr. Rudy Ortiz Lymphocytes/100 WBC (Bld) 19.3 % Critically low 20.5-60.0 [facility] Comment on above: Performed By: #### D ATCBC #### [facility] [address] [place] [address] Dr. Rudy Ortiz MCH (RBC) [Entitic mass] 31.4 pg Normal 25.9-34.0 [facility] Comment on above: Performed By: #### D ATCBC #### [facility] [address] [place] [address] Dr. Rudy Ortiz MCHC (RBC) [Mass/Vol] 33.9 g/dL Normal 29.9-35.2 [facility] Comment on above: Performed By: #### D ATCBC #### [facility] [address] [place], [place] [address] Dr. Rudy Ortiz MCV (RBC) [Entitic vol] 92.8 fL Normal 80.0-94.0 [facility] Comment on above: Performed By: #### D ATCBC #### [facility] [address] [place] [address] Dr. Rudy Ortiz MONO # 0.7 103/ul Normal 0.3-0.8 [facility] Comment on above: Performed By: #### D ATCBC #### [facility] [address] [place] [address] Dr. Rudy Ortiz Monocytes/100 WBC (Bld) 9.4 % Normal 1.7-12.0 [facility] Comment on above: Performed By: #### D ATCBC #### [facility] [address] [place] [address] Dr. Rudy Ortiz NEUT # 4.2 103/ul Normal 1.4-6.5 [facility] Comment on above: Performed By: #### D ATCBC #### [facility] [address] [place] [address] Dr. Rudy Ortiz Neutrophils/100 WBC (Bld) 61.1 % Normal 43.0-75.0 [facility] Comment on above: Performed By: #### D ATCBC #### [facility] [address] [place] [address] Dr. Rudy Ortiz Platelet mean volume (Bld) [Entitic vol] 9.6 fL Normal 9.5-13.5 [facility] Comment on above: Performed By: #### D ATCBC #### [facility] [address] [place] [address] Dr. Rudy Ortiz PLT 205 103/ul Normal 150-450 [facility] Comment on above: Performed By: #### D ATCBC #### [facility] [address] [place] [address] Dr. Rudy Ortiz RBC 4.71 106/ul Normal 4.70-6.10 [facility] Comment on above: Performed By: #### D ATCBC #### [facility] [address] [place] [address] Dr. Rudy Ortiz WBC 6.9 103/ul Normal 4.0-11.0 [facility] Comment on above: Performed By: #### D ATCBC #### [facility] [address] [place] [address] [address] Rudy Ortiz HUMPHREY- BMP WITH LIPIDon 2021 Anion gap [Moles/Vol] 12.8 mmol/L Normal [facility] Comment on above: Performed By: #### D ATBMP #### [facility] [address] [place] [address] Dr. Rudy Ortiz Calcium [Mass/Vol] 9.0 mg/dL Normal 8.5-10.1 [facility] Comment on above: Performed By: #### D ATBMP #### [facility] [address] [place] [address] Dr. Rudy Ortiz Chloride [Moles/Vol] 104 mmol/L Normal 98-107 [facility] Comment on above: Performed By: #### D ATBMP #### [facility] [address] [place] [address] Dr. Rudy Ortiz Cholesterol [Mass/Vol] 165 mg/dL Normal <=200 [facility] Comment on above: Performed By: #### D ATBMP #### [facility] [address] [place] [address] Dr. Rudy Ortiz Cholesterol in HDL [Mass/Vol] 38 mg/dL Critically low 40-60 [facility] Comment on above: Performed By: #### D ATBMP #### [facility] [address] [place] [address] Dr. Rudy Ortiz Cholesterol in LDL [Mass/Vol] 104.4 mg/dL Normal [facility] Comment on above: Performed By: #### D ATBMP #### [facility] [address] [place] [address] [address] Rudy Ortiz CO2 [Moles/Vol] 27.1 mmol/L Normal 21.0-32.0 [facility] Comment on above: Performed By: #### D ATBMP #### [facility] [address] [place] [address] [address] Rudy Ortiz Creatinine [Mass/Vol] 1.11 mg/dL Normal 0.70-1.30 [facility] Comment on above: Performed By: #### D ATBMP #### [facility] [address] [place] [address] Dr. Rudy Ortiz EGFR-AF NORWEGIAN >60 Normal >=60 [facility] Comment on above: Performed By: #### D ATBMP #### [facility] [address] [place] [address] [address] Rudy Ortiz EGFR-NON AF NORWEGIAN >60 Normal >=60 [facility] Comment on above: Performed By: #### D ATBMP #### [facility] [address] [place] [address] Dr. Rudy Ortiz Glucose [Mass/Vol] 121 mg/dL Critically high 74-[address] [facility] Comment on above: Performed By: #### D ATBMP #### [facility] [address] [place] [address] Dr. Rudy Ortiz HDL NORMAL > or = 60 mg/dl - LO W CARDIOVASCULAR RISK <40 mg/dl - HIGH CARDIOVASCULAR RISK Normal [facility] Comment on above: Performed By: #### D ATBMP #### [facility] [address] [place] [address] Dr. Rudy Ortiz LDL CALC NORMAL SEE BELOW Normal [facility] Comment on above: Result Comment: <100 mg/dl OPTIMAL 100 - 129 mg/dl NEAR OR ABOVE OPTIMAL 130 - 159 mg/dl BORDERLINE HIGH 160 - 189 mg/dl HIGH >190 mg/dl VERY HIGH Performed By: #### D ATBMP #### [facility] [address] [place] [address] Dr. Rudy Ortiz Potassium [Moles/Vol] 3.9 mmol/L Normal 3.5-5.1 [facility] Comment on above: Performed By: #### D ATBMP #### [facility] [address] [place] [address] Dr. Rudy Ortiz Sodium [Moles/Vol] 140 mmol/L Normal 136-145 [facility] Comment on above: Performed By: #### D ATBMP #### [facility] [address] [place], [place] [address] Dr. Rudy Ortiz Triglyceride [Mass/Vol] 113 mg/dL Normal <=[address] [facility] Comment on above: Performed By: #### D ATBMP #### [facility] [address] [place], [place] [address] Dr. Rudy Ortiz Urea nitrogen [Mass/Vol] 12.0 mg/dL Normal 7.0-18.0 [facility] Comment on above: Performed By: #### D ATBMP #### [facility] [address] [place] [address] [address] Rudy Ortiz Urea nitrogen/Creatinine [Mass ratio] 10.8 mg/mg Normal [facility] Comment on above: Performed By: #### D ATBMP #### [facility] [address] [place] [address] [address] Rudy Ortiz VLDL CALC 22.6 mg/dL Normal [facility] Comment on above: Performed By: #### D ATBMP #### [facility] [address] [place], [place] [address] Dr. Rudy Ortiz Vital Signs Date Time Vital Sign Value Performing Clinician Facility 05-29-2024 11:44-0500 Body height 182.88 cm Marko Cisneros MD Work Phone: [facility] 05-29-2024 11:44-0500 Body mass index (BMI) [Ratio] 29.9 kg/m2 Marko Cisneros MD Work Phone: [facility] 05-29-2024 11:44-0500 Body weight 100.24 kg Marko Cisneros MD Work Phone: [facility] 05-29-2024 11:44-0500 Diastolic blood pressure 70 mm[Hg] Marko Cisneros MD Work Phone: [facility] 05-29-2024 11:44-0500 Heart rate 65 /min Marko Cisneros MD Work Phone: [facility] 05-29-2024 11:44-0500 Respiratory rate 18 /min Marko Cisneros MD Work Phone: [facility] 05-29-2024 11:44-0500 SaO2% (BldA) [Mass fraction] 97 % Marko Cisneros MD Work Phone: [facility] 05-29-2024 11:44-0500 Systolic blood pressure 136 mm[Hg] Marko Cisneros MD Work Phone: [facility] 04-22-2024 10:06-0500 Body height 182.88 cm Marko Cisneros MD Work Phone: [facility] 04-22-2024 10:06-0500 Body mass index (BMI) [Ratio] 29.4 kg/m2 Marko Cisneros MD Work Phone: [facility] 04-22-2024 10:06-0500 Body temperature 97.6 [degF] Marko Cisneros MD Work Phone: [facility] 04-22-2024 10:06-0500 Body weight 98.42 kg Marko Cisneros MD Work Phone: [facility] 04-22-2024 10:06-0500 Diastolic blood pressure 69 mm[Hg] Marko Cisneros MD Work Phone: [facility] 04-22-2024 10:06-0500 Heart rate 64 /min Marko Cisneros MD Work Phone: [facility] 04-22-2024 10:06-0500 Systolic blood pressure 129 mm[Hg] Marko Cisneros MD Work Phone: [facility] 04-02-2024 14:03-0500 Diastolic blood pressure 69 mm[Hg] Marko Cisneros MD Work Phone: [facility] 04-02-2024 14:03-0500 Heart rate 67 /min Marko Cisneros MD Work Phone: [facility] 04-02-2024 14:03-0500 Respiratory rate 16 /min Marko Cisneros MD Work Phone: [facility] 04-02-2024 14:03-0500 SaO2% (BldA) [Mass fraction] 98 % Marko Cisneros MD Work Phone: [facility] 04-02-2024 14:03-0500 Systolic blood pressure 135 mm[Hg] Marko Cisneros MD Work Phone: [facility] 04-02-2024 12:01-0500 Body height 182.88 cm Marko Cisneros MD Work Phone: [facility] 04-02-2024 12:01-0500 Body weight 95.25 kg Marko Cisneros MD Work Phone: [facility] 03-11-2024 14:09-0400 Body height 182.[address] [facility] 03-11-2024 14:09-0400 Body mass index (BMI) [Ratio] 28.5 kg/m2 [facility] 03-11-2024 14:09-0400 Body weight 95.[address] [facility] 03-11-2024 14:09-0400 Diastolic blood pressure 69 mm[Hg] [facility] 03-11-2024 14:09-0400 Heart rate 62 /min [facility] 03-11-2024 14:09-0400 Systolic blood pressure 138 mm[Hg] [facility] 02-17-2024 11:01-0400 Body height 182.[address] [facility] 02-17-2024 11:01-0400 Body mass index (BMI) [Ratio] 29.9 kg/m2 [facility] 02-17-2024 11:01-0400 Body weight 100.[address] [facility] 02-17-2024 11:01-0400 Diastolic blood pressure 78 mm[Hg] [facility] 02-17-2024 11:01-0400 Heart rate 68 /min [facility] 02-17-2024 11:01-0400 Respiratory rate 18 /min [facility] 02-17-2024 11:01-0400 SaO2% (BldA) [Mass fraction] 98 % [facility] 02-17-2024 11:01-0400 Systolic blood pressure 134 mm[Hg] [facility] 08-08-2023 11:59-0400 Body height 182.[address] [facility] 08-08-2023 11:59-0400 Body mass index (BMI) [Ratio] 28.8 kg/m2 [facility] 08-08-2023 11:59-0400 Body weight 96.[address] [facility] 08-08-2023 11:59-0400 Diastolic blood pressure 58 mm[Hg] [facility] 08-08-2023 11:59-0400 Heart rate 68 /min [facility] 08-08-2023 11:59-0400 Respiratory rate 18 /min [facility] 08-08-2023 11:59-0400 SaO2% (BldA) [Mass fraction] 98 % [facility] 08-08-2023 11:59-0400 Systolic blood pressure 120 mm[Hg] [facility] 05-04-2023 10:35-0500 Body height 182.88 cm Zina Bishop Other [facility] Other 05-04-2023 10:35-0500 Body mass index (BMI) [Ratio] 28.32 kg/m2 Zina Bishop Other [facility] Other 05-04-2023 10:35-0500 Body temperature 97.9 [degF] Zina Bishop Other [facility] Other 05-04-2023 10:35-0500 Body weight 94.71 kg Zina Bishop Other [facility] Other 05-04-2023 10:35-0500 Diastolic blood pressure 68 mm[Hg] Zina Bishop Other [facility] Other 05-04-2023 10:35-0500 Respiratory rate 18 /min Zina Bishop Other [facility] Other 05-04-2023 10:35-0500 SaO2% (BldA) [Mass fraction] 96 % Zina Bishop Other [facility] Other 05-04-2023 10:35-0500 Systolic blood pressure 132 mm[Hg] Zina Bishop Other [facility] Other 04-16-2023 14:40-0500 Body height 182.88 cm Meagan Zak Other [facility] Other 04-16-2023 14:40-0500 Body mass index (BMI) [Ratio] 28.21 kg/m2 Meagan Zak Other [facility] Other 04-16-2023 14:40-0500 Body weight 94.35 kg Meagan Zak Other [facility] Other 04-16-2023 14:40-0500 Diastolic blood pressure 70 mm[Hg] Meagan Zak Other [facility] Other 04-16-2023 14:40-0500 Respiratory rate 18 /min Meagan Zak Other [facility] Other 04-16-2023 14:40-0500 SaO2% (BldA) [Mass fraction] 96 % Meagan Zak Other [facility] Other 04-16-2023 14:40-0500 Systolic blood pressure 140 mm[Hg] Meagan Zak Other [facility] Other 04-04-2023 09:30-0500 Body height 182.88 cm Marko Cisneros Other [facility] Other 04-04-2023 09:30-0500 Body mass index (BMI) [Ratio] 28.42 kg/m2 Marko Cisneros Other [facility] Other 04-04-2023 09:30-0500 Body weight 95.07 kg Marko Cisneros Other [facility] Other 04-04-2023 09:30-0500 Diastolic blood pressure 71 mm[Hg] Marko Cisneros Other [facility] Other 04-04-2023 09:30-0500 Systolic blood pressure 127 mm[Hg] Marko Cisneros Other [facility] Other 04-02-2023 11:13-0500 Diastolic blood pressure 78 mm[Hg] MD Marko Cisneros Work Phone: [facility] 04-02-2023 11:13-0500 Heart rate 80 /min MD Marko Cisneros Work Phone: [facility] 04-02-2023 11:13-0500 Respiratory rate 16 /min MD Marko Cisneros Work Phone: [facility] 04-02-2023 11:13-0500 SaO2% (BldA) [Mass fraction] 97 % MD Marko Cisneros Work Phone: [facility] 04-02-2023 11:13-0500 Systolic blood pressure 137 mm[Hg] MD Marko Cisneros Work Phone: [facility] 04-02-2023 07:16-0500 Body temperature 98.4 [degF] MD Marko Cisneros Work Phone: [facility] 04-02-2023 06:00-0500 Body weight 97 kg MD Marko Cisneros Work Phone: [facility] 03-31-2023 20:14-0500 Body height 182.88 cm MD Marko Cisneros Work Phone: [facility] 03-15-2023 10:45-0400 Body height 182.88 cm Marko Cisneros Other [facility] Other 03-15-2023 10:45-0400 Body mass index (BMI) [Ratio] 28.88 kg/m2 Marko Cisneros Other [facility] Other 03-15-2023 10:45-0400 Body temperature 97.5 [degF] Marko Cisneros Other [facility] Other 03-15-2023 10:45-0400 Body weight 96.62 kg Marko Cisneros Other [facility] Other 03-15-2023 10:45-0400 Diastolic blood pressure 81 mm[Hg] Marko Cisneros Other [facility] Other 03-15-2023 10:45-0400 Systolic blood pressure 140 mm[Hg] Marko Cisneros Other [facility] Other 06-19-2022 08:31-0500 Blood Pressure Location ANJALI GIOVANNA [facility] 06-19-2022 08:31-0500 Diastolic blood pressure 89 mm[Hg] ANJALI GIOVANNA [facility] 06-19-2022 08:31-0500 Heart rate 66 /min ANJALI GIOVANNA [facility] 06-19-2022 08:31-0500 Respiratory rate 16 /min ANJALI GIOVANNA [facility] 06-19-2022 08:31-0500 Systolic blood pressure 140 mm[Hg] ANJALI HEREDIA [facility] Encounters Encounter Date Encounter Type Care Provider Facility Start: 06-30-2024 ambulatory KRISTINE-Delroy HEREDIA Facility:[facility] Start: 05-29-2024 End: 05-29-2024 ambulatory Marko Cisneros MD Work Phone: [facility] Work Phone: Start: 05-29-2024 End: 05-29-2024 Patient encounter procedure Marko Cisneros MD Work Phone: [facility] Physician [facility] Work Phone: Start: 04-22-2024 End: 04-22-2024 Patient encounter procedure Marko Cisneros MD Work Phone: [facility] Physician [facility] Work Phone: Start: 04-02-2024 Non-patient / Non-visit Marko Cisneros MD Work Phone: [facility] Physician [facility] Gastroenterology Work Phone: Start: 04-02-2024 End: 04-02-2024 Admission to same day surgery center Marko Cisneros MD Work Phone: [facility] Work Phone: Start: 04-02-2024 End: 04-02-2024 ambulatory Marko Cisneros MD Work Phone: [facility] Work Phone: Start: 03-11-2024 End: 03-11-2024 ambulatory [facility] Work Phone: Start: 03-11-2024 End: 03-11-2024 Patient encounter procedure [facility] Physician [facility] Gastroenterology Work Phone: Start: 02-17-2024 End: 02-17-2024 ambulatory [facility] Work Phone: Start: 02-17-2024 End: 02-17-2024 Patient encounter procedure [facility] Cardiology Work Phone: Start: 08-08-2023 End: 08-08-2023 ambulatory [facility] Work Phone: Start: 08-08-2023 End: 08-08-2023 Patient encounter procedure [facility] Phys[facility] Cardiology Work Phone: Start: 06-25-2023 End: 06-25-2023 ambulatory PA-Delroy HEREDIA Facility:[facility] Start: 05-08-2023 End: 05-08-2023 ambulatory EBEN PRINCEFER Not Available Start: 05-04-2023 End: 05-04-2023 ambulatory Zina Bishop Other [facility] Other Start: 05-04-2023 Office outpatient vi sit 25 minutes Zina Dario [facility] Start: 04-16-2023 End: 04-16-2023 ambulatory Meagan Zak Other [facility] Other Start: 04-16-2023 Office outpatient vi sit 25 minutes Meagan Zak [facility] Start: 04-04-2023 End: 04-04-2023 ambulatory Marko Cisneros Other [facility] Other Start: 04-04-2023 Transitional care manage srvc 14 day discharge Marko Cisneros [facility] Start: 04-03-2023 End: 04-03-2023 ambulatory Marko Cisneros Other [facility] Other Start: 04-03-2023 Telephone encounter Marko Cisneros [facility] Start: 03-31-2023 End: 04-02-2023 Evaluation and management of inpatient MD Marko Cisneros Work Phone: [facility] Work Phone: Start: 03-15-2023 End: 03-15-2023 ambulatory Marko Cisneros Other [facility] Other Start: 03-15-2023 Office outpatient vi sit 15 minutes Marko Cisneros [facility] Start: 08-10-2022 End: 08-10-2022 ambulatory Marko Cisneros Other [facility] Other Start: 08-10-2022 Telephone encounter Marko Cisneros [facility] Start: 08-09-2022 End: 08-10-[address] MAYRA KUO Facility:[facility] Start: 08-08-2022 End: 08-08-2022 ambulatory Marko Cisneros Other [facility] Other Start: 08-08-2022 Telephone encounter Marko Cisneros [facility] Start: 08-07-2022 End: 08-08-[address] MARKO CISNEROS Facility:[facility] Start: 07-28-2022 End: 07-28-[address] MARKO CISNEROS Facility:[facility] Start: 06-19-2022 End: 06-19-2022 Lab Drop off ANJALI HEREDIA [facility] Start: 06-19-2022 End: 06-19-2022 Patient encounter procedure ANJALI HEREDIA [facility] Start: 06-13-2022 End: 06-14-[address] MARKO CISNEROS Facility:[facility] Start: 01-15-2022 End: 01-16-[address] MARKO CISNEROS Facility:[facility] Start: 11-23-2021 Adult health examination Marko Cisneros Other [facility] Other Procedures Date Procedure Procedure Detail Performing Clinician Start: 04-02-2024 Esophagogastroduodenoscopy Marko Cisneros MD Work Phone: Start: 04-01-2023 CL LHC & COR Angio MD Marko Cisneros Work Phone: Start: 04-01-2023 CL Stent 1st Vessel LAD FÉLIX MD Marko horton Work Phone: Start: 04-01-2023 CL Stent 1st Vessel RCA FÉLIX MD Marko horton Work Phone: Start: 04-01-2023 MD Marko Cisneros Work Phone: Start: 06-13-[address] MARKO CISNEROS Comment on above: Performed By: #### PSAD ####[facility] [id number] [place], [place] [address]DrAshley uRdy Ortiz Start: 08-27-2018 Transurethral prostatectomy ANJALI MARTÍNEZ Start: 08-18-2018 Cystoscopy ANJALI HEREDIA Start: 10-30-2017 Transrectal biopsy of prostate using ultrasound guidance ANJALI HEREDIA Start: 09-03-2016 Pre-surgery evaluation Marko Cisneros Other Start: 10-13-2010 Transrectal biopsy of prostate using ultrasound guidance ANJALI HEREDIA Discectomy of spine ANJALI HEREDIA Plan of Treatment Date Care Activity Detail Author Start: 04-02-2024 [facility] Start: 02-17-2024 Patient referral [facility] Work Phone: Start: 04-02-2023 [facility] Start: 04-01-2023 [facility] Start: 03-31-2023 Sleep disorder assessment [facility] Start: 03-31-2023 Hospital admission [facility] Start: 03-31-2023 Referral to livestock auctioneer [facility] Patient Education [facility] Work Phone: Patient referral [facility] Work Phone: Immunizations Immunization Date Immunization Notes Care Provider Noemy camacho 11-26-2020 SARS-CoV-2 (COVID-19 ) Ad26 vaccine, recombinant ANJALI HEREDIA [facility] Payers Date Payer Category Payer Medicare [id number]. [id number] 1960 Self-pay [id number] 1955 Unknown [id number] 1955 Unknown [id number] [id number] [id number] 1954 Unknown [id number] 2.16.84 [id number] 1954 Unknown [id number] 2.16.84 [id number] 1954 Unknown [id number] 1954 Unknown [id number] 2.16.8 [id number] 1955 Unknown [id number] 2.16.8 [id number] Medicare Medicare [id number] [id number] Unknown [id number] [id number] [id number] Social History Date Type Detail Facility Start: 06-19-2022 End: 04-02-2024 Tobacco smoking status Ex-smoker (finding) [facility] Sex Assigned At Male [facility] Start: 04-01-2023 Tobacco smoking stat us NHIS Never smoked tobacco (finding) [facility] Start: 1955 Sex Assigned At Male [facility] Start: 04-02-2024 End: 05-29-2024 Sex Male (finding) [facility] Medical Equipment Procedure Code Equipment Code Equipment Origin al Text Equipment Identifier Dates CL STENT VIJAYA FRONTIER 2.5 X 12 FDA Start: 04-01-2023 CL STENT VIJAYA FRONTIER 3.0 X 18 FDA Start: 04-01-2023 CL STENT VIJAYA FRONTIER 2.5 X 12 FDA Start: 04-01-2023 CL STENT VIJAYA FRONTIER 3.0 X 18 FDA Start: 04-01-2023 CL STENT VIJAYA FRONTIER 2.5 X 12 FDA Start: 04-01-2023 CL STENT VIJAYA FRONTIER 3.0 X 18 FDA Start: 04-01-2023 CL STENT VIJAYA FRONTIER 2.5 X 12 FDA Start: 04-01-2023 CL STENT VIJAYA FRONTIER 3.0 X 18 FDA Start: 04-01-2023 CL STENT VIJAYA FRONTIER 2.5 X 12 FDA Start: 04-01-2023 CL STENT VIJAYA FRONTIER 3.0 X 18 FDA Start: 04-01-2023 CL STENT VIJAYA FRONTIER 2.5 X 12 FDA Start: 04-01-2023 CL STENT VIJAYA FRONTIER 3.0 X 18 FDA Start: 04-01-2023 Goals Date Patient Goal Desired Activity /State Functional Status Date Assessment Result Facility 04-02-2023 Functional status Patient at Baseline [facility] Work Phone: 06-19-2022 Functional Status N/A [facility] Mental Status Date Assessment Result Facility 04-02-2023 Cognitive function Cognitive Sta tus Patient at Baseline [facility] Work Phone: Clinical Notes 06-19-2022 to 04-02-2024 Note Date & Type Note Facility 04-02-2024 Procedure note [facility] enter 03-11-2024 Evaluation note Diagnosis Onset Date Resolution Dysphagia acute March 11, 2024 1:56pm Epigastric abdominal pain acute March 11 1:56pm GERD (gastroesophageal reflux disease) acute March 11 1:56pm Sinusitis, acute maxillary acute April 22 10:02am [facility] Work Phone: 1(651) 941-496209-30-2024 Evaluation note* Diagnosis Onset Date Resolution Status Admit Date Coronary artery disease involving [place] coronary artery of [place] heart [place] acute Septem 2023 10:55am Essential (primary) hypertension acute February 17, 2024 10:55am Mixed hyperlipidemia acute Jan emb2023 10:55am Dysphagia acute March 11, 2024 1:56pm Epigastric abdominal pain acute March 11, 2024 1:56pm GERD (gastroesophageal reflu x disease) acute March 11 1:56pm [facility] Work Phone: 1(830) 897-583012-16-2023 Evaluation note* Encounter Date Diagnosis Assessment Notes Treatment Notes Treatment Clinical Notes Apr, Acute recurrent maxillary sinusitis (ICD-10 - J01.01) Patient declines/refuses COVID testing at this time. Discussed diagnosis with patient. Will today for bacterial sinusitis based on physical exam and duration of symptoms. Take antibiotic and steroid as prescribed, complete entire course of therapy even if symptoms resolve. Reviewed allergies and recent antibiotic use with patient. Advised patient to take OTC Mucinex as directed, OTC Flonase. Supportive care as directed, push fluids and rest, Tylenol and/or Motrin as directed for discomfort/fever, warm moist compress over sinuses several times a day, cool mist humidification, nasal saline spray as directed. Symptoms should improve in the next 3 days, if symptoms persist follow up with PCP. Will send in referral to ENT per patient request. Immediate eval for warning s/sx as discussed. Patient verbalizes understanding and is agreeable to treatment plan [facility] Other 11-28-2023 Evaluation note* Encounter Date Diagnosis Assessment Notes Treatment Notes Treatment Clinical Notes Mar, Coronary artery disease involving [place] coronary artery of [place] heart without angina pectoris (ICD-10 - I25.10) Mr. Paez is a 68-year-old male with past medical history of hypertension and hyperlipidemia who presented to [facility] on 03/31/2023 as a transfer from [facility] with NSTEMI. He underwent LHC and was found to have 90% proximal LAD and mid PDA stenosis and underwent PCI with FÉLIX x 2. He was started on aspirin and Brilinta. Echo 04/01/2023 showed EF of 60-65% with grade 1 diastolic dysfunction and normal wall motion. He presents today for 2-week hospital follow-up. Assessment: CAD; recent NSTEMI HTN HLD Plan: - LHC showed 2 vessel CAD and underwent PCI to prox LAD and R PDA with FÉLIX - Continue ASA & Brilinta 90mg BID for at least 1 year. - Echo 04/01/2023 shows EF of 60-65% with grade 1 diastolic dysfunction and normal wall motion. Mild concentric LVH - Continue Lipitor, Coreg and Losartan - Aggressive risk factor modifications. - Pt declines referral to cardiac rehab at this time. - Follow up in 3 months Mar, NSTEMI (non-ST elevated myocardial infarction) (ICD-10 - I21.4) Mar, Essential hypertension (ICD-10 - I10) Mar, Mixed hyperlipidemia (ICD-10 - E78.2) [facility] Other 11-16-2023 Evaluation note* Encounter Date Diagnosis Assessment Notes Treatment Notes Treatment Clinical Notes Mar, NSTEMI (non-ST elevated myocardial infarction) (ICD-10 - I21.4) Current treatment regimen reviewed. Modifiable and nonmodifiable risk factors reviewed, discussed. Risk factor modification discussed. Diet and exercise reviewed and discussed. Recommendations regarding dietary and lifestyle modifications reviewed and discussed. Mar, Essential hypertension (ICD-10 - I10) Blood pressure remains well controlled at this time. Denies cardiac symptoms. Shows no signs or symptoms or poor control. Patient to continue with above medication and we will continue to monitor. Advised to pay attention to body and symptoms. Any developing patterns. Stay well hydrated. Mar, HLD (hyperlipidemia) (ICD-10 - E78.5) Patient to continue to watch diet and increase exercise routine. Remain active as tolerated and we will continue to monitor with routine blood work. Patient is to continue with above medication as directed. [facility] Other 11-14-2023 Hospital Discharge instructions Additional Instructions DISCHARGE INSTRUCTIONS FOR ANGIOPLASTY/CORONARY/PERIPHERAL/STENT IMPLANT FOR ADULT ANTICOAGULATION -Since the greatest risk of a blood clot forming with the stent occurs in the first 2-3 weeks after implantation, you will need to take anticoagulants for at least 12-18 months. ANTICOAGULATION MEDICATION Aspirin 81mg once a day, Ticagrelor (Brilinta) 90mg twice a day STATIN MEDICATION Atorvastatin (Lipitor) 40 mg daily Drug-Eluting Stent (FÉLIX) DO NOT discontinue Brilinta/Aspirin during the first few months regardless of what you are advised by your family doctor or pharmacist, without first calling the livestock auctioneer who implanted the stent. If you require pain relief during this time, please take only ACETAMINOPHEN (TYLENOL)- NO additional aspirin or ibuprofen. DISCHARGE ACTIVITIES ARE FOLLOWS: First week after discharge: -Take it easy at home, no strenuous activity. -Do not lift or pull objects over 10-15 pounds, including children, and groceries for four weeks. If puncture site is at wrist do NOT lift more than three pounds for three days. - May walk up stairs. -May shower. -No excessive scrubbing of the affected site (groin). -May ride in car. -May resume sexual intercourse after 1-2 weeks. -No MRI for 12 days. -May drive in 4-7 days. -If puncture site is at the wrist do not manipulate the wrist for 24 hours, and no soaking wrist for three days. Second Week: -May take a bath -May start walking 3 times a week for 15-20 minutes at a leisurely pace. You should be able to carry on a conversation comfortably without feeling winded. -No strenuous activity as in jogging, running, weight lifting, stair steppers, etc. until the livestock auctioneer approves these activities. Check with the livestock auctioneer on your first follow-up visit. CALL YOUR PHYSICIAN at [phone]: -If bleeding should occur from the catheter insertion site- apply pressure to the site then immediately call us. -Report any fever, redness, drainage, increased swelling, or firmness at the catheter insertion site. Some bruising or slight swelling may be present at the time of discharge. -Should arm or leg become cold, numb, white, or blue, contact the livestock auctioneer immediately. -IF you should experience episodes of angina, e.g. chest discomfort, heaviness, tightness, pressure burning with or without radiation to the neck, jaw, arms or back- use 1 Nitrostat tablet under your tongue every 5-10 minutes and up to three tablets. IF NO RELIEF, CALL 911 or GO TO THE NEAREST EMERGENCY ROOM. -Please notify our office if you have recurrent angina. -[Cardiac Rehab Education Provided. Participation in the Cardiopulmonary Rehabilitation program is recommended. Please call Central Scheduling at [phone] to schedule your appointment.] The attending livestock auctioneer or [facility] nurse clinician should provide you with specific instructions regarding activity, diet, medications, and further follow up for you. Follow the medication instructions provided on your discharge. If the dosages and instructions on this sheet differ from the dosage and instructions on the bottle, follow the instructions on the bottle. [facility] is not responsible for incorrect prescription information provided by the patient during their visit. Do not stop your medications without consulting your health care provider. Please take the list with you to your next doctor's appointment.[facility] Work Phone: [phone]) 558-688511-13-2023 Progress note Author Shyam Rodriguez [facility] April 01, 2023 7:19pm Note Date/Time April 01, 2023 7:19pm [facility] ENTER [address] [place] [address] Hospitalist Progress Note Signed Patient: Rosalino Paez MR#: [id number] : 1955 Acct:[id number] Age/Sex: 68 / M Adm Date: 3 Loc: Room: [address] [place] [address] Type: ADM IN Attending Dr: Shyam Rodriguez DO Copies to: ~ Date of Service: 04/01/2023 Subjective Subjective Narrative: Seen and evaluated after his cardiac catheterization, patient has no complaints,he tolerated procedure well. The findings of the invasive coronary mention weredescribed to the patient as well as medication changes. I did review his A1c and lipid panel results. Exam Physical Exam Vital Signs: Temp Pulse Resp BP Pulse Ox O2 Del Method 98.0 F 61 18 138/86 97 Room Air 04/01/23 16:30 04/01/23 18:45 04/01/23 18:45 04/01/23 18:45 04/01/23 18:45 04/01/23 18:45 Narrative: General: Awake alert, no acute distress HEENT: head atraumatic, normocephalic, moist mucous membranes Neck: supple no masses, no lymphadenopathy CVS: regular rate and rhythm, no murmurs or gallops Respiratory: clear to auscultation bilaterally, no wheezing or crackles, symmetric expansion GI: soft, nondistended, nontender, positive bowel sounds with no organomegaly Extremity: moves all extremities, no restrictions of movements, no calf tenderness, no edema Neuro: AOx3, CN II-VII intact. Moves all extremities in all planes of motion. Skin: dry, intact no rashes or lesions Objective Lab Results 04/01/23 06:31 04/01/23 06:31 Meds Allergies and Active Meds Allergies Gadolinium-Containing Contrast Medi [From Contrast Media] Adverse Reaction (Verified 03/31/23 23:03) Hives Iodinated Contrast Media [From Contrast Media] Adverse Reaction (Verified 03/31/23 23:03) Hives Active Meds: Active Medications Generic Name Dose Route Start Last Admin Trade Name Freq PRN Reason Stop Dose Admin Acetaminophen 650 mg 03/31/23 20:27 Acetaminophen 325 Mg Tablet PO 03/30/24 20:26 Q6HR PRN Pain Scale 1 - 3 or fever Aspirin 81 mg 04/01/23 09:00 04/01/23 08:17 Aspirin 81 Mg Tablet.Dr PO 03/31/24 08:59 81 mg DAILY RONDA Administration Atorvastatin Calcium 40 mg 04/01/23 21:00 Atorvastatin 40 Mg Tablet PO 03/31/24 20:59 QPM RONDA Atropine Sulfate 1 mg 04/01/23 16:19 Atropine Sulfate 1 Mg/10 Ml Syringe IV-PUSH ONCE PRN Symptomatic Bradycardia Carvedilol 6.25 mg 04/01/23 08:00 04/01/23 16:44 Carvedilol 6.25 Mg Tablet PO 03/31/24 07:59 6.25 mg BID.WITH.MEALS RONDA Administration Sodium Chloride 250 mls @ 999 mls/hr 04/01/23 16:19 0.9% Sodium Chloride 250 Ml IV 03/31/24 16:18 PRN PRN Hypotension Dextrose/Sodium Chloride 1,000 mls @ 80 mls/hr 04/01/23 16:30 04/01/23 16:30 5 % Dextrose-0.45 % Nacl IV 04/01/23 19:29 80 mls/hr .[id number] RONDA Administration Lidocaine HCl 10 ml 04/01/23 16:19 Lidocaine 2% Mdv 50 Ml Vial SUBCUT 04/02/23 04:19 ONCE PRN Sheath Removal Losartan Potassium 25 mg 04/01/23 09:00 04/01/23 08:17 Losartan 25 Mg Tablet PO 03/31/24 08:59 25 mg QAM RONDA Administration Melatonin 5 mg 03/31/23 20:27 Melatonin 5 Mg Tablet PO 03/30/24 20:26 QHS PRN Insomnia Meperidine HCl 25 mg 04/01/23 16:19 Meperidine Pf 25 Mg/Ml Vial IV-PUSH 04/02/23 04:19 ONCE PRN Sheath Removal Miscellaneous Information 1 each 04/01/23 10:20 Consult To Pharmacy MISCELLANE 03/31/24 10:19 .PHACONSULT PRN ZZ.Pharmacy Consult Protocol Morphine Sulfate 2 mg 03/31/23 20:27 Morphine Sulfate 2 Mg/Ml Vial IV-PUSH Q4H PRN Pain Scale 8 - 10 Ondansetron HCl 4 mg 03/31/23 20:27 Ondansetron 4 Mg/2 Ml Vial IV-PUSH 03/30/24 20:26 Q8H PRN Nausea And Vomiting Potassium Chloride 40 meq 04/01/23 10:20 Potassium Chloride Er 20 Meq Tab.Er.Prt PO STAT PRN Hypokalemia Promethazine HCl 12.5 mg 04/01/23 16:19 Promethazine 25 Mg/Ml Vial IV-PUSH 04/02/23 04:19 ONCE PRN Sheath Removal Sodium Chloride 0 ml 04/01/23 10:20 Sodium Chloride 0.9 % 10 Ml Syringe IV-PUSH 03/31/24 10:19 PRN PRN Flush Ticagrelor 90 mg 04/01/23 21:00 Ticagrelor 90 Mg Tablet PO 03/31/24 20:59 BID COUNTS INCLUDE 234 BEDS AT THE [facility] A&P - Hospitalist Assessment/Plan (1) NSTEMI, initial episode of care: Plan: ? Patient was started on a heparin GTT ?Patient went to the Strategic Planning Director today ? A1c slightly elevated at 6.1 ? Lipid panel shows cholesterol 224, LDL elevated at 161 ? Patient was started on Coreg 6.25 and his home dose of losartan 25 mg continued ? Patient was increased his dose of atorvastatin to 40 mg ? Continue DAPT per cardiology ? Shows EF of 60-65%, no wall motion abnormalities noted ? Cardiac diet today (2) Hypertension: Plan: See above, continue home dose losartan Plan ? DVT prophylaxis addressed ? Cardiac diet ? Full code Documented By: Shyam Rodriguez DO 04/01/231916 Signed By: <Electronically signed by Shyam Rodriguez DO> 04/01/231918 [facility] Work Phone: [phone] Consult note Author Inderjit Villegas [facility] April 01, 2023 5:49pm Note Date/Time April 01, 2023 5:49pm [facility] ENTER [address] [place] [address] Cardiology Consult Note Signed Patient: Rosalino Paez MR#: [id number] : 1955 Acct:[id number] Age/Sex: 68 / M Adm Date: 3 Loc: Room: [address] [place] [address] Type: ADM IN Attending Dr: Shyam Rodriguez DO Copies to: MD Shyam Kiryb DO W Scott Sheldon, DO~ Cardiology HPI History of Present Illness Consult Date: 04/01/23 Reason for Consult: Acute non-ST elevation TN; two-vessel ASHD HPI: Mr. Paez is a 68 year old male seen in interventional cardiology consultation at the request of Dr. Crespo for further interventional assessment and management following semiurgent diagnostic catheterization today for patient whopresents with acute coronary syndrome, troponin elevation. Patient was found tohave an occluded proximal LAD and subtotally occluded PDA branch. Echocardiogram revealed normal left ventricular function with no significant wall motion abnormalities, and on heart catheterization the above-mentioned anatomy with elevated LVEDP of approximately 30 mmHg. It appears that proximal LAD is the infarct vessel, amazingly despite no significant wall motion abnormality on echo and minor troponin elevation Patient has a family history for precocious coronary disease in all male family members. He is a non-smoker, nondiabetic with no previous cardiovascular eventsor revascularizations. His only comorbidities are noted for hypertension and hyperlipidemia. He is previously 2 different statins with intolerance to both atorvastatin and simvastatin Case is reviewed with Dr. Crespo including angiography and echocardiography. Plan at this time is proceed with two-vessel urgent intervention of the proximalLAD in the mid PDA branch. Patient will require at least 1 years worth of dual antiplatelet therapy post procedure or greater in addition to a trial of moderate to high-dose statin. If intolerant to statins and 1 can consider PCSK29 inhibitor therapy [facility] Medical History (Updated 04/01/23 @ 10:59 by Suzy Cancino RN) Hypertension Social History Smoking Status: Never smoker Substance Use Type: None Meds Medications and Allergies Allergies Gadolinium-Containing Contrast Medi [From Contrast Media] Adverse Reaction (Verified 03/31/23 23:03) Hives Iodinated Contrast Media [From Contrast Media] Adverse Reaction (Verified 03/31/23 23:03) Hives Home Medications aspirin 81 mg chewable tablet 81 mg PO DAILY 04/01/23 [History Confirmed 04/01/23] losartan 25 mg tablet 25 mg PO DAILY 04/01/23 [History Confirmed 04/01/23] Exam Physical Exam Vital Signs: Temp Pulse Resp BP Pulse Ox O2 Del Method 98.0 F 78 17 148/77 H 97 Room Air 04/01/23 16:30 04/01/23 17:30 04/01/23 17:30 04/01/23 17:30 04/01/23 17:30 04/01/23 17:30 Const General: cooperative, healthy appearing, comfortable, no acute distress, well developed and well groomed Nutritional Appearance: average body habitus Orientation: alert, awake and oriented x3 HEENT Head: normal to inspection Neck Neck: normal visual inspection Chest Chest palpation & inspection: normal inspection of the chest Resp Effort & Inspection: normal respiratory effort Auscultation: clear to auscultation bilaterally Cardio Palpation: normal PMI Rate: regular rate Rhythm: regular rhythm Heart Sounds: S1 normal and S2 normal Bruits: no carotid bruits Pulses: radial pulses present GI Palpation: soft Skin General: no rashes or lesions noted Neuro General: patient alert, patient awake and patient oriented x3 Cognition: normal cognition Speech: speech normal Extrem General: no clubbing, cyanosis or edema Results Labs 04/01/23 06:31 04/01/23 06:31 Lab results: Lipids 04/01/23 Range/Units 06:31 Triglycerides 153 H (0-149) mg/dL Cholesterol 224 H (140-200) mg/dL HDL Cholesterol 32 (23-92) mg/dL Cholesterol/HDL Ratio 7.0 (<5.0) CBC 04/01/23 Range/Units 06:31 RBC 4.45 (3.90-5.60) X10E6/uL Hgb 14.3 (13.0-17.0) g/dL Hct 41.3 (38.8-50.0) % Plt Count 185 (150-450) x10E3/uL Neut # (Auto) 3.9 (1.8-7.7) x10E3/uL Lymph # (Auto) 1.1 (1.00-4.8) x10E3/uL [place] # (Auto) 0.7 (0.0-0.8) x10E3/uL Eos # (Auto) 0.6 H (0.0-0.45) x10E3/uL Baso # (Auto) 0.0 (0.0-0.2) x10E3/uL Comprehensive Metabolic Panel 04/01/23 Range/Units 06:31 Sodium 142 (136-145) mmol/L Potassium 4.4 (3.5-5.1) mmol/L Chloride 106 (98-107) mmol/L Carbon Dioxide 27.9 (21.0-31.0) mmol/L BUN 15 (7-25) mg/dL Creatinine 1.08 (0.70-1.30) mg/dL Glucose 119 H (70-100) mg/dL Calcium 9.3 (8.6-10.3) mg/dL Intake and Output 04/01/23 04/01/23 04/01/23 07:59 15:59 23:59 Intake Total 125 / 200 75 / 200 Balance 125 / 200 75 / 200 Intake: Oral 125 / 200 75 / 200 Other: # Unmeasured Voids 1 2 # Bowel Movements 0 Weight 97.2 kg Date of Last Bowel Movement 03/30/23 03/30/23 Patient Weight 04/01/23 23:59 Weight 97.2 kg Lab 04/01/23 06:31 APTT 39.4 H EKG Interpretations EKG EKG results cardiology: sinus rhythm Blocks, axis, hypertrophy, ST abn Repolarization changes or abnormalities: ST or T wave suggestive of ischemia A&P - Cardiology (1) NSTEMI, initial episode of care: Assessment/Problem Details: 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 Plan: Proceed with urgent two-vessel PCI, continue with minimum of 1 years DAPT Code(s): I21.4 - Non-ST elevation (NSTEMI) myocardial infarction (2) Hypertension: Code(s): I10 - Essential (primary) hypertension Documented By: Inderjit Villegas DO 04/01/23 174 Signed By: <Electronically signed by Inderjit Villegas DO> 04/01/23 1749 [facility] Work Phone: [phone]) [phone] Consult note Author Meagan Crespo [facility] April 01, 2023 3:59pm Note Date/Time April 01, 2023 3:47pm [facility] ENTER [address] [place] [address] Cardiology Consult Note Signed Patient: Rosalino Paez MR#: [id number] : 1955 Acct:[id number] Age/Sex: 68 / M Adm Date: 3 Loc: Room: [address] [place] [address] Type: ADM IN Attending Dr: Shyam Rodriguez DO Copies to: MD Marko Parry MD Shawn J Warner, DO~ Cardiology HPI History of Present Illness Consult Date: 04/01/23 Reason for Consult: NSTEMI HPI: Mr. Paez is a 68 year old male with PMH of HTN and HLD who presents as a transfer from [facility] for management of NSTEMI. He initially presentedwith 3 day history of intermittent exertional chest pain associated with nausea/vomiting that started while walking his dog. He denies associated shortness of breath, orthopnea, PND, palpitations, light headedness or syncope. The chest pain got progressively worse and presented to [place] where initial troponin was found to be 227 and trended up to 380. EKG showed TWI in aVL. He received ASA, Nitro and heparin gtt and was transferred to [facility]. On arrival, initial troponin was 330--->290. He currently denies any chest pain. He does not smoke. Has positive family history of premature CAD- Father and Brother. Reports having a stress test a year ago that was normal. Review of Systems Review of Systems All other systems reviewed & are negative unless noted below or in HPI [facility] Medical History (Updated 04/01/23 @ 10:59 by Suzy Cancino RN) Hypertension Social History Smoking Status: Never smoker Substance Use Type: None Meds Medications and Allergies Allergies Gadolinium-Containing Contrast Medi [From Contrast Media] Adverse Reaction (Verified 03/31/23 23:03) Hives Iodinated Contrast Media [From Contrast Media] Adverse Reaction (Verified 03/31/23 23:03) Hives Home Medications aspirin 81 mg chewable tablet 81 mg PO DAILY 04/01/23 [History Confirmed 04/01/23] losartan 25 mg tablet 25 mg PO DAILY 04/01/23 [History Confirmed 04/01/23] Exam Physical Exam Vital Signs: Temp Pulse Resp BP Pulse Ox O2 Del Method 98.0 F 56 L 17 156/78 H 98 Room Air 04/01/23 08:00 04/01/23 12:00 04/01/23 12:00 04/01/23 12:00 04/01/23 12:00 04/01/23 12:00 Narrative: GEN: AAOx3. No acute distress. Lying comfortably flat in bed Neck: No JVD. Lungs: Clear to auscultation bilaterally Heart: Regular rate and rhythm. Normal S1 and S2. No murmurs or rubs appreciated. Abdomen: Soft, nontender, nondistended, bowel sounds present. Extremities: No BLE edema. Neuro: AAOx3. No focal deficits. Results Labs 04/01/23 06:31 04/01/23 06:31 Lab results: Lipids 04/01/23 Range/Units 06:31 Triglycerides 153 H (0-149) mg/dL Cholesterol 224 H (140-200) mg/dL HDL Cholesterol 32 (23-92) mg/dL Cholesterol/HDL Ratio 7.0 (<5.0) CBC 04/01/23 Range/Units 06:31 RBC 4.45 (3.90-5.60) X10E6/uL Hgb 14.3 (13.0-17.0) g/dL Hct 41.3 (38.8-50.0) % Plt Count 185 (150-450) x10E3/uL Neut # (Auto) 3.9 (1.8-7.7) x10E3/uL Lymph # (Auto) 1.1 (1.00-4.8) x10E3/uL [place] # (Auto) 0.7 (0.0-0.8) x10E3/uL Eos # (Auto) 0.6 H (0.0-0.45) x10E3/uL Baso # (Auto) 0.0 (0.0-0.2) x10E3/uL Comprehensive Metabolic Panel 04/01/23 Range/Units 06:31 Sodium 142 (136-145) mmol/L Potassium 4.4 (3.5-5.1) mmol/L Chloride 106 (98-107) mmol/L Carbon Dioxide 27.9 (21.0-31.0) mmol/L BUN 15 (7-25) mg/dL Creatinine 1.08 (0.70-1.30) mg/dL Glucose 119 H (70-100) mg/dL Calcium 9.3 (8.6-10.3) mg/dL Intake and Output 03/31/23 04/01/23 04/01/23 23:59 07:59 15:59 Intake Total 125 / 200 75 / 200 Balance 125 / 200 75 / 200 Intake: Oral 125 / 200 75 / 200 Other: # Unmeasured Voids 2 1 2 # Bowel Movements 0 Weight 97.2 kg 97.2 kg Date of Last Bowel Movement 03/30/23 03/30/23 03/30/23 Patient Weight 04/01/23 23:59 Weight 97.2 kg Lab 04/01/23 06:31 APTT 39.4 H A&P - Cardiology (1) NSTEMI, initial episode of care: Code(s): I21.4 - Non-ST elevation (NSTEMI) myocardial infarction (2) Hypertension: Code(s): I10 - Essential (primary) hypertension Plan Mr. Paez is a 68 year old male with PMH of HTN and HLD who presents as a transfer from [facility] for management of NSTEMI. Assessment: NSTEMI HTN HLD Recommendations: - Proceed with [facility] today - Continue heparin gtt; ASA, Lipitor, Coreg and Losartan - ECHO- preliminary findings show normal EF 65-70% with normal regional wall motion - Aggressive risk factor modifications. - Will follow Documented By: Meagan Crespo MD 04/01/23 4768 Signed By: <Electronically signed by Meagan Crespo MD> 04/01/23 1196 [facility] Work Phone: [phone]) 865-611511-13-2023 [facility] History and physical note Author Shyam Rodriguez [facility] March 31, 2023 8:43pm Note Date/Time March 31, 2023 8:39pm [facility] ENTER [address] [place] [address] Hospitalist H&P Signed Patient: Rosalino Paez MR#: [id number] : 1955 Acct:[id number] Age/Sex: 68 / M Adm Date: 3 Loc: Room: [address] [place] [address] Type: ADM IN Attending Dr: Shyam Rodriguez DO Copies to: MD Shyam Kirby, DO~ HPI DATE OF EXAMINATION: 03/31/23 CHIEF COMPLAINT: Chest pain HISTORY OF PRESENT ILLNESS: Mr. Paez is a 68-year-old male with past medical history of hypertension who presents hospital as a transfer from outside facility with chief complaint of chest pain. The patient states the chest pain started on exertion a couple daysago, he has no chest pain at rest. He describes the pain as a 5 out of 10 in severity, a dull ache, it is midsternal. It does not radiate to his shoulder orneck or jaw at all. The patient notes that the pain was worse while he was walking his dog, he had to stop 3 times today on his dog walk whereas he usuallyis able to complete it without any difficulties. When the patient returned homefrom his dog walk, the pain was the worst but he also had 1 episode of emesis. He then went to work and after work he came to the emergency room. While at [facility] was initial troponins were found be elevated at 227, they thentrended up towards the 380 range couple hours later. His EKG showed a T wave inversion in aVL was otherwise nonacute. He was given aspirin, sublingual nitroand and started heparin drip and transferred to our facility for further evaluation and treatment. The patient does take an aspirin daily, he does not have any issues with his cholesterol as far as he knows, he is not diabetic, he does have a family history of coronary artery disease, his dad had a heart attack and so his little brother. He does not smoke cigarettes or do alcohol. He had a stress test roughly 1 year ago, he is not sure why, he denies any history of chest pain like this. As far as he knows a stress test was normal. Upon my assessment in the room Saturday evening the patient is asymptomatic and without any chest pain. Review of Systems Review of Systems All other systems reviewed & are negative unless noted below or in HPI Exam Physical Exam Narrative: General: Awake alert, no acute distress HEENT: head atraumatic, normocephalic, moist mucous membranes Neck: supple no masses, no lymphadenopathy CVS: regular rate and rhythm, no murmurs or gallops Respiratory: clear to auscultation bilaterally, no wheezing or crackles, symmetric expansion GI: soft, nondistended, nontender, positive bowel sounds with no organomegaly Extremity: moves all extremities, no restrictions of movements, no calf tenderness, no edema Neuro: AOx3, CN II-VII intact. Moves all extremities in all planes of motion. Skin: dry, intact no rashes or lesions Assessment & Plan Assessment/Plan (1) NSTEMI, initial episode of care: Plan: ? Patient was started on a heparin GTT ? His KARINA score is 3 for age, positive cardiac markers, daily aspirin use ? Trend troponins overnight ? A1c and lipid profile ordered for risk stratification ? Patient was started on Coreg 6.25 and his home dose of losartan 25 mg discontinued ? Initiate patient on atorvastatin 10 mg ? Patient received aspirin in the ER, will be initiated on 81 mg/day ? TTE in the morning ? Cardiac diet today, n.p.o. at midnight ? Cardiology consult placed (2) Hypertension: Plan: See above, continue home dose losartan Plan ? DVT prophylaxis addressed ? Cardiac diet, n.p.o. midnight ? Full code IP vs OBS Justification Based on differential dx, clinical care plan, and risk of adverse events, if untreated, in my clinical judgement this patient requires an acute care setting as: INPATIENT because of an expectation of an over 2 midnight stay. Estimated length of stay (# of days): 3 Documented By: Shyam Rodriguez DO 03/31/232033 Signed By: <Electronically signed by Shyam Rodriguez DO> 03/31/232042 [facility] Work Phone: 1([phone]) 473-486010-27-2023 Evaluation note* Encounter Date Diagnosis Assessment Notes Treatment Notes Treatment Clinical Notes Feb, Left otitis media with effusion (ICD-10 - H65.92) Ear infections are often a secondary infection caused from an URI or allergies. Take medication as directed, and complete all doses of medication even if symptoms are no longer present. Use OTC Tylenol or Motrin as directed for discomfort and fevers. Push fluids/rest. Follow up with PCP if symptoms do not improve after 2-3 days on antibiotic or if new symptoms develop. Patient verbalized understanding and agreement of treatment plan. [facility] Other 01-31-2023 Hospital Discharge instructions Patient Education 06/19/2022 09:10:07 Benign Prostatic Hyperplasia Benign Prostatic Hyperplasia Benign prostatic hyperplasia (BPH) is an enlarged prostate gland that is caused by the normal agingprocess and not by cancer. The prostate is a walnut-sized gland that is involved in the production of semen. It is located in front of the rectum and below the bladder. The bladder stores urine and the urethra is the tube that carries the urine out of the body. The prostate may get bigger as a man gets older. An enlarged prostate can press on the urethra. This can make it harder to pass urine. The build-up of urine in the bladder can cause infection. Back pressure and infection may progress to bladder damage and kidney (renal) failure. What are the causes? This condition is part of a normal aging process. However, not all men develop problems from this condition. If the prostate enlarges away from the urethra, urine flow will not be blocked. If it enlarges toward the urethra and compresses it, there will be problems passing urine. What increases the risk? This condition is more likely to develop in men over the age of 50 years. What are the signs or symptoms? Symptoms of this condition include: Getting up often during the night to urinate. Needing to urinate frequently during the day. Difficulty starting urine flow. Decrease in size and strength of your urine stream. Leaking (dribbling) after urinating. Inability to pass urine. This needs immediate treatment. Inability to completely empty your bladder. Pain when you pass urine. This is more common if there is also an infection. Urinary tract infection (UTI). How is this diagnosed? This condition is diagnosed based on your medical history, a physical exam, and your symptoms. Tests will also be done, such as: A post-void bladder scan. This measures any amount of urine that may remain in your bladder after you finish urinating. A digital rectal exam. In a rectal exam, your health care provider checks your prostate by putting a lubricated, gloved finger into your rectum to feel the back of your prostate gland. This exam detects the size of your gland and any abnormal lumps or growths. An exam of your urine (urinalysis). A prostate specific antigen (PSA) screening. This is a blood test used to screen for prostate cancer. An ultrasound. This test uses sound waves to electronically produce a picture of your prostate gland. Your health care provider may refer you to a specialist in kidney and prostate diseases (urologist). How is this treated? Once symptoms begin, your health care provider will monitor your condition (active surveillance or watchful waiting). Treatment for this condition will depend on the severity of your condition. Treatment may include: Observation and yearly exams. This may be the only treatment needed if your condition and symptoms are mild. Medicines to relieve your symptoms, including: ?Medicines to shrink the prostate. ?Medicines to relax the muscle of the prostate. Surgery in severe cases. Surgery may include: ?Prostatectomy. In this procedure, the prostate tissue is removed completely through an open incision or with a laparoscope or robotics. ?Transurethral resection of the prostate (TURP). In this procedure, a tool is inserted through the opening at the tip of the penis (urethra). It is used to cut away tissue of the inner core of the prostate. The pieces are removed through the same opening of the penis. This removes the blockage. ?Transurethral incision (TUIP). In this procedure, small cuts are made in the prostate. This lessens the prostate's pressure on the urethra. ?Transurethral microwave thermotherapy (TUMT). This procedure uses microwaves to create heat. The heat destroys and removes a small amount of prostate tissue. ?Transurethral needle ablation (TUNA). This procedure uses radio frequencies to destroy and remove a small amount of prostate tissue. ?Interstitial laser coagulation (ILC). This procedure uses a laser to destroy and remove a small amount of prostate tissue. ?Transurethral electrovaporization (TUVP). This procedure uses electrodes to destroy and remove a small amount of prostate tissue. ?Prostatic urethral lift. This procedure inserts an implant to push the lobes of the prostate away from the urethra. Follow these instructions at home: Take [id number] and prescription medicines only as told by your health care provider. Monitor your symptoms for any changes. Contact your health care provider with any changes. Avoid drinking large amounts of liquid before going to bed or out in public. Avoid or reduce how much caffeine or alcohol you drink. Give yourself time when you urinate. Keep all follow-up visits as told by your health care provider. This is important. Contact a health care provider if: You have unexplained back pain. Your symptoms do not get better with treatment. You develop side effects from the medicine you are taking. Your urine becomes very dark or has a bad smell. Your lower abdomen becomes distended and you have trouble passing your urine. Get help right away if: You have a fever or chills. You suddenly cannot urinate. You feel lightheaded, or very dizzy, or you faint. There are large amounts of blood or clots in the urine. Your urinary problems become hard to manage. You develop moderate to severe low back or flank pain. The flank is the side of your body between the ribs and the hip. These symptoms may represent a serious problem that is an emergency. Do not wait to see if the symptoms will go away. Get medical help right away. Call your local emergency services (911 in the [place] Do not drive yourself to the hospital. Summary Benign prostatic hyperplasia (BPH) is an enlarged prostate that is caused by the normal aging process and not by cancer. An enlarged prostate can press on the urethra. This can make it hard to pass urine. This condition is part of a normal aging process and is more likely to develop in men over the age of 50 years. Get help right away if you suddenly cannot urinate. This information is not intended to replace advice given to you by your health care provider. Make sure you discuss any questions you have with your health care provider. Document Released: 05/06/2006 Document Revised: 03/31/2019 Document Reviewed: 06/10/2017 [employer] Patient Education 2020 [employer]. Follow Up Care 05/23/2021 09:20:36 With:Daniel Mckinnon MD, Chris Goel URO Address: [facility] [address], [place] [address]- When:1 year [facility] evaluation + Plan note Future Appointments Appointment Date:06/25/2023 08:30:00 AM Scheduled Provider:ANJALI HEREDIA PA-C Location:[facility] Appointment Type:URO Office Visit Diagnostic Tests Pending * PSA Total 06/19/22 [facility] evaluation + Plan note Future Appointments Appointment Date:06/25/2023 08:30:00 AM Scheduled Provider:ANJALI HEREDIA PA-C Location:[facility] Appointment Type:URO Office Visit Diagnostic Tests Pending * Urine [facility] [place] Other evaluation note* Diagnosis Onset Date Resolution Status Hypertension acute NSTEMI, initial episode of care acute [facility] Work Phone: evaluation noteNo assessment information available [facility] Work Phone: evaluation note* Diagnosis Onset Date Resolution Status [id number] acute Essential (primary) hypertension acute Mixed hyperlipidemia acute [facility] Work Phone: evaluzagtk note* Diagnosis Onset Date Resolution Status [id number] acute Essential (primary) hypertension acute Mixed hyperlipidemia acute Dysphagia acute Epigastric abdominal pain ac [place] GERD (gastroesophageal reflux disease) acute [facility] Work Phone: Hisadkz general Narrative - Reported* Type Description Date Medical History Allergic rhinitis Medical History Essential hypertension Medical History HLD (hyperlipidemia) Surgical History T&A Surgical History Turp 1998 Hospitalization History SEE SURGICAL HX [facility] Other Hisdalo general Narrative - Reported* Type Description Date Medical History Allergic rhinitis Medical History Essential hypertension Medical History HLD (hyperlipidemia) Medical History [place] Surgical History T&A Surgical History Turp 1998 Surgical History Heart Cath 03/2023 Hospitalization History SEE SURGICAL HX Hospitalization History [facility] 03/2023 [facility] Other Histlcm general Narrative - Reported* Type Description Date Medical History Allergic rhinitis Medical History Essential hypertension Medical History HLD (hyperlipidemia) Medical History [place] Surgical History T&A Surgical History Turp 1998 Surgical History Heart Cath/PCI 03/2023 Hospitalization History SEE SURGICAL HX Hospitalization History [facility] 03/2023 [facility] Other History general Narrative - Reported* Type Description Date Medical History Allergic rhinitis Medical History Essential hypertension Medical History HLD (hyperlipidemia) Medical History [place] Surgical History T&A Surgical History Turp 1998 Surgical History Heart Cath/PCI 03/2023 Hospitalization History SEE SURGICAL HX Hospitalization History [facility] HEART ATTACK 2022 [facility] Other Hospital course Narrative No data available for this section [facility] Discharge instructions No data available for this section [facility] No data available for this section [facility] Summary Purpose Family History Relationship Condition Age at Onset Recorded Date/T lita brother History of stroke Unknown Heart disease Unknown father Heart disease Unknown Unknown Not Specified Hypertension Unknown Relationship Condition Age at Onset Recorded Date/T lita brother History of stroke Unknown Heart disease Unknown father Heart disease Unknown Unknown mother Hypertension Unknown Advance Directives Advance Directive Response Recorded Date/ Time Advance Directives No March 5:49pm Advance Directive Response Recorded Date/ Time Advance Directives No March 6:49pm Chief Complaint and Reason for Visit Chief Complaint Nstemi Reason for Visit Hypertension NSTEMI, initial episode of care Chief Complaint 3 month Chief Complaint 6 months Reason for Visit [id number] Essential (primary) hypertension Mixed hyperlipidemia Chief Complaint [address] Crespo: dysphagia Reason for Visit [id number] Essential (primary) hypertension Mixed hyperlipidemia Dysphagia Epigastric abdominal pain GERD (gastroesophageal reflux disease) Chief Complaint Admit Date 6 months February 17, 2024 10:55am Referred by Dr Crespo: dysphagia Octobe r 2023 1:56pm dysphagia/epigastric pain April 02, 2024 11:41am dysphagia/epigastric pain April 02, 2024 1:14pm Reason for Visit Admit Date Coronary artery disease [place] coronary artery [place] February 17, 2024 10:55am Essential (primary) hypertension Septemb 2023 10:55am Mixed hyperlipidemia February 16 10:55am Dysphagia March 11, 2024 1 :56pm Epigastric abdominal pain March 11, 2024 1:56pm GERD (gastroesophageal reflux disease) O ctober 2023 1:56pm Chief Complaint Admit Date Referred by Dr Crespo: dysphagia Octobe r 2023 1:56pm dysphagia/epigastric pain April 02, 2024 11:41am dysphagia/epigastric pain April 02, 2024 1:14pm sinus headaches April 22, 2024 1 0:02am 3 months May 29, 2024 1 1:33am Reason for Visit Admit Date Dysphagia March 11, 2024 1 :56pm Epigastric abdominal pain March 11, 2024 1:56pm GERD (gastroesophageal reflux disease) O ctober 2023 1:56pm Sinusitis, acute maxillary April 22, 2024 10:02am Reason for Referral Reason Hello there, since D awn Fore is gone was hoping you can assist Rosalino in setting up appt with Dr. Tee. Rosalino was a previous patient of his and he is having ongoing sinus issues. Thank you Diagnosis 1 Acute recurrent maxi llary sinusitis (J01.01) Referral Organization [facility] Referring Provider First Name Zina Referring Provider Last Name Dario Referring Provider Specialty Nurse Pract itioner Referred Organization [facility] Referred Address [address] [place] [id number] Referred Provider Specialty Ear, Nose an d Throat Referral Priority Urgent Additional Source Comments Patient Care team informatio n (unrecognized section and content) Team Status: Active Member Role Status Dates Marko Cisneros MD Primary Care Provider Active Team Status: Inactive Member Role Status Dates Makro Cisneros MD Primary Care Provider Active Shyam Rodriguez DO Admit Provider Active Gold Yadav MD Other Provider Active Meagan Crespo MD Other Provider Active Kay Martini MD Attending Provider Active Team Status: Inactive Member Role Status Dates Marko Cisneros MD Primary Care Provider Active Start: August 08, 2023 End: August 08, 2023 Meagan Crespo MD Attending Provider Active Sta rt: August 08, 2023 End: August 08, 2023 Team Status: Active Member Role Status Dates Meagan Crespo MD Liner Inserter Active Marko Cisneros MD Primary Care Provider Active Team Status: Inactive Member Role Status Dates Marko Cisneros MD Primary Care Provider Active Start: February 17, 2024 End: February 17, 2024 Meagan Crespo MD Attending Provider Active Sta rt: February 17, 2024 End: February 17, 2024 Team Status: Inactive Member Role Status Dates Marko Cisneros MD Primary Care Provider Active Start: March 11, 2024 End: March 11, 2024 Connor Mario APRN Attending Provider Active Start: March 11, 2024 End: March 11, 2024 Team Status: Inactive Member Role Status Dates Marko Cisneros MD Primary Care Provider Active Start: April 02, 2024 End: April 02, 2024 Carolyn Mccartney MD Attending Provider Active Start: April 02, 2024 End: April 02, 2024 Team Status: Active Member Role Status Mariama Cisneros MD Primary Care Provider Active Start: April 02, 2024 Carolyn Mccartney MD Attending Provider, Other Provider Active Start: April 02, 2024 Team Status: Inactive Member Role Status Mariama Cisneros MD Primary Care Provide r, Attending Provider Active Start: April 22, 2024 End: April 22, 2024 Team Status: Inactive Member Role Status Mariama Cisneros MD Primary Care Provider Active Start: May 29, 2024 End: May 29, 2024 Meagan Crespo MD Attending Provider Active Sta rt: May 29, 2024 End: May 29, 2024 REASON FOR VISIT (unrecogniz ed section and content) echostress testPossible Ear InfectionTCospital follow up- [facility] 2 WKhead cold (unrecognized sect ion and content) No Status Records FoundNo Status Records FoundNo Status Records FoundNo Status Records Found INFORMATION SOURCE (unrecogn ized section and content) DATE CREATED AUTHOR 08/13/2022 [facility] DATE CREATED AUTHOR AUTHOR'S ORGANIZ ATION 05/09/2023 [facility] DATE CREATED AUTHOR AUTHOR'S ORGANIZ ATION 04/10/2024 [facility] DATE CREATED AUTHOR AUTHOR'S CHAPIS ATION 04/12/2024 [facility] Goals (unrecognized section and content) Goals may be documented in a n alternate section FOR RECORDS PERTAINING TO PATIENTS WHO ARE OR HAVE BEEN ENROLLED IN A CHEMICAL DEPENDENCY/SUBSTANCEABUSE PROGRAM, SOME INFORMATION MAY BE OMITTED. This clinical summary was aggregated from multiple sources. Caution should be exercised in using it in the provision of clinical care. This summary normalizes information from multiple sources, and as a consequence, information in this document may materially change the coding, format and clinical context of patient data. In addition, data may be omitted in some cases. CLINICAL DECISIONS SHOULD BE BASED ON THE PRIMARY CLINICAL RECORDS. [facility] [employer] [facility]. provides no warranty or guarantee of the accuracy or completeness of information in this document.
== END 2024-06-23 08:01 | disposition home or self-care (01) ==
LOC: LAB 08:02
PROVIDERS: PCP Family Medicine; Visit Provider Physician Assistant
DX: R97.20 Elevated prostate specific antigen [PSA] (principal)
CPT/HCPCS: 36415; 84153

== ENCOUNTER 2024-11-04 08:15 | Outpatient (OUT) | payer MEDICARE, SELFPAY ==
--- OUTSIDE RECORDS SUMMARY | 2024-11-04 08:22 | XMS_ITS | CCD ---
Author Organization [facility] Inform ion Partnership 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 Name Role Phone MARKO CISNEROS Primary Care Physician [phone] Marko Cisneros BLAYNE, DR MARKO Egan Primary Care Unavailable DANIEL Ramirez, DR CHRIS Goel Consulting Unavaila ble DANIEL Ramirez, DR CHRIS Goel Attending Unavaila ble DANIEL Ramirez, DR CHRIS Goel Admitting Unavaila ble CISNEROS, DR MARKO Egan Primary Care Unavailable WEST, DR BLAS Cortes Consulting Unavailable LILLIAN ., DOMINIQUE Attending Unavailable LILLIAN ., DOMINIQUE Admitting Unavailable [...] Unavailable MD Marko Cisneros Primary Care Provider DO Shyam Rodriguez Admit Provider MD Gold Yadav Other Provider MD Meagan Crespo Other Provider MD Kay Martini Attending Provider [phone] Meagan Crespo Unavailable Zina Bishop Unavailable EBEN TEE Attending Unavailable ZINA BISHOP Referring Unavailable Marko Cisneros MD Primary Care Provider Carolyn Mccartney MD Attending Provider [phone] Bib, Impeña Admitting Unavailable Carolyn Mccartney Attending Unavailable Marko Cisneros Primary Care Unavailable GREG HEREDIA Attending Unavailable GREG HEREDIA Attending Unavailable GREG HEREDIA Attending Unavailable GREG HEREDIA Attending Unavailable Allergies Allergy Classification Reported Allergen(s) Allergy Type Date of Onset Reaction(s) Facility (5 sources) Contrast media; 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: [Contrast Dye] Drug allergy Unknown (qualifier value), Congestion of nasal sinus (disorder) [facility] (14 sources) Terazosin; 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: [terazosin] Drug Allergy 11-02-19 18 Syncope (disorder) [facility] (7 sources) Contrast media Propensity to adverse reactions Unknown [employer] Other (4 sources) moxifloxacin Drug Allergy Unknown [employer] [facility] Other (1 source) Fluorouracil Drug Allergy [facility] (1 source) Iodine (And Iodine Containting Drugs) Drug allergy (disorder) [facility] (2 sources) Allergies Reconciled Propensity to adverse reactions Unknown [employer] [facility] Other (2 sources) patient allergy list reviewed by nurse or physicia Propensity to adverse reactions 12-26-19 19 Comment:Done [employer] Other (10 sources) Avelox *FLUOROQUINOLONE S* Propensity to adverse reactions 08-07-19 15 Unknown, [facility] Comment on above: Onset Date: 08/07/19 15 (6 sources) Gadolinium-Conta ining Contrast Medi Propensity to adverse reactions 03-31-20 23 [facility] (6 sources) Iodinated Contrast Media Propensity to adverse reactions 03-31-20 23 Hives, Difficulty Breathing [facility] (5 sources) Terazosin Drug Allergy 08-08-19 24 Unknown Reaction [facility] Comment on above: Onset Date: 11/02/19 18 Medications Current Medications Medication Drug Class(es) Dates Sig (Normalized) Sig (Original) Aspir-81 (5 sources) Aspir-81 Active aspirin 81 mg oral capsule (10 sources) Platelet Aggregation Inhibitor, Nonsteroidal Anti-inflammatory Drug Start: 06-25-2023 take 1 mg by mouth every twenty-four hours aspirin 81 mg oral capsule mg cap(s), Oral, q24hr, Refills(s) 0 Start Date: 06/25/23 Status: Ordered Repeat number: 1 Start: 04-01-2023 take 1 tablet by didier th once daily Aspirin 81 mg Tablet,Chewable Active 81 MG PO Daily April 01, 2023 12:00am take 1 tablet by didier th every twenty-four hours Aspirin Adult Low Dose 81 MG 1 tablet Orally Once a day Active atorvastatin 40 mg oral tablet (20 sources) HMG-CoA Reductase Inhibitor Start: 07-29-2023 End: 05-29-2024 take 1 tablet by mouth once daily in the evening Atorvastatin 40 mg tablet Discontinued 0 .ROUTE .COMPLEX 90 January 07, 2024 7:31am May 29, 2024 11:41am TAKE 1 TABLET BY MOUTH EVERY EVENING Start: 04-02-2023 End: 07-29-2023 atorvastatin 40 mg Tab Refil ls(s) 0 Start Date: 06/25/23 Status: Ordered Repeat number: 1 carvedilol 6.25 mg oral tablet (20 sources) alpha-Adrenergic Jessica, beta-Adrenergic Jessica Start: 07-29-2023 End: 05-29-2024 take 1 tablet by mouth twice daily at mealtime Carvedilol 6.25 mg tablet Discontinued 0 .ROUTE .COMPLEX 180 January 07, 2024 7:31am May 29, 2024 11:41am TAKE 1 TABLET BY MOUTH TWICE DAILY WITH MEALS FOR 30 DAYS Start: 04-02-2023 End: 07-29-2023 carvedilol 6.25 mg Tab Refil ls(s) 0 Start Date: 06/25/23 Status: Ordered Repeat number: 1 doxycycline monohydrate 100 mg oral capsule (1 source) Tetracycline-class Drug Start: 05-04-2023 take 1 capsule by mouth every twelve hours Doxycycline Monohydrate 100 MG 1 capsule Orally every 12 hrs for 10 days Apr, Active losartan potassium 25 mg oral tablet (20 sources) Angiotensin 2 Receptor Jessica Start: 07-12-2023 End: 05-29-2024 take 1 tablet by mouth once daily Losartan 25 mg tablet Discontinued 0 .ROUTE .COMPLEX 90 January 07, 2024 7:31am May 29, 2024 11:41am TAKE 1 TABLET BY MOUTH EVERY DAY Start: 06-14-2022 End: 07-12-2023 losartan 25 mg Tab Refills(s ) 0 Start Date: 06/25/23 Status: Ordered Repeat number: 1 Nitro Sublingual 0.4 (1 source) Nitro Sublingual 0.4 Active nitroglycerin 0.4 mg sublingual tablet (10 sources) Nitrate Vasodilator Start: 04-02-2023 nitroglycerin 0.4 mg sublingual Tab 0.4 mg = 1 tab(s), SubLingual, q5min, PRN for chest pain, # 100 tab(s), Refills(s) 0 Start Date: 06/25/23 Status: Ordered Quantity: 100.0 Unit: tab(s) Repeat number: 1 Nitroglycerin 0. 4 MG as directed for chest pain take one every 5 mins X 3 Active Oxymetazoline (1 source) Oxymetazoline HC l 0.05 % 4 sprays (2 sprays in each nostril) Nasally Twice a day Active pantoprazole 40 mg delayed release oral tablet (4 sources) Proton Pump Inhibitor Start: 06-30-[address] Tab 40 mg = 1 tab(s), Refills(s) 0 Start Date: 06/30/24 Status: Ordered Repeat number: 1 Start: 04-02-2024 End: 05-29-2024 take 1 tablet by mouth once daily Pantoprazole 40 mg tablet,delayed release (DR/EC) Discontinued 40 MG PO Daily 56 56 April 02, 2024 12:00am May 29, 2024 11:40am predniSONE 20 mg oral tablet (1 source) Start: 05-04-2023 take 1 tablet by mouth every twelve hours prednisone 20 MG 1 tablet Orally BID for 5 Apr, Active tamsulosin hydrochloride 0.4 mg oral capsule (4 sources) alpha-Adrenergi c Jessica Start: 06-30-2024 take 1 capsule by mouth once daily Flomax 0.4 mg Cap 0.4 mg = 1 cap(s), Oral, Daily, start 3-5 days prior to flying, # 30 cap(s), Refills(s) 0, Pharmacy: [facility]/pharmacy #[id number], 184, cm, 06/30/24 8:29:00 EST, Height/Length Dosing, 95.5, kg, 06/30/24 8:29:00 EST, Weight Dosing Start Date: 06/30/24 Status: Ordered Quantity: 30.0 Unit: cap(s) Repeat number: 1 Indications: Elevated prostate specific antigen [PSA]; Benign prostatic hyperplasia with lower urinary tract symptoms; Start: 06-19-2022 take 1 capsule by mo uth once daily Flomax 0.4 mg Cap 0.4 mg = 1 cap(s), Oral, Daily, start 3-5 days prior to flying, # 30 cap(s), Refills(s) 0, Pharmacy: [facility]/pharmacy #[id number], 184, cm, 06/19/22 8:33:00 EST, Height/Length Dosing, 91, kg, 06/19/22 8:33:00 EST, Weight Dosing Start Date: 06/19/22 Status: Ordered triamcinolone acetonide 0.055 mg/actuat metered dose nasal spray (4 sources) Corticosteroid Start: 05-21-2019 Nasacort Aller gy 24HR nasal spray spray(s), Nasal, Daily, Refill(s) 0 Start Date: 05/21/19 Status: Ordered Repeat number: 1 Completed/Discontinued Medications Medication Drug Class(es) Dates Sig (Normalized) Sig (Original) amoxicillin 875 mg / clavulanate 125 mg oral tablet (3 sources) Penicillin-class Antibacterial Start: 04-22-2024 End: 05-29-2024 take 1 tablet by mouth twice daily Amoxicillin-Pot Clavulanate 875-125 mg tablet Discontinued 1 TAB PO Twice daily April 22, 2024 12:00am May 29, 2024 11:40am Start: 03-15-2023 take 1 tablet by didier every twelve hours Amoxicillin-Pot Clavulanate 875-125 MG [...] Refills(s) 0 Start Date: 06/14/22 Status: Ordered ticagrelor 90 mg oral tablet (9 sources) [...] [Epigastric pain] 03-11-2024 Episodic Acute myocardial infarction (15 sources) Myocardial infarction; 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: [Non-ST elevation (NSTEMI) myocardial infarction] Onset: 5 03-31-2023 Chronic Comment on above: Problem List clean-u p per request of Phys. EHR Cmte Allergic reactions (2 sources) Allergic contact dermatitis; 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: [Allergic contact dermatitis, unspecified cause] Episodic Coronary atherosclerosis and other heart disease (11 sources) Coronary arteriosclerosis; 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: [Atherosclerotic heart disease of [place] coronary artery without angina pectoris] Chronic Disorders [...] INSUFF] Onset: 3 Chronic Hyperplasia of prostate (7 sources) Benign prostatic hypertrophy with outflow obstruction; 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: [Benign prostatic hyperplasia with lower urinary tract symptoms] Onset: 3 Chronic Nonspecific chest pain (7 sources) Chest pain, unspecified; 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: [Other chest pain] Onset: 3 Episodic Other aftercare (1 source) Other terminal block assembler (current) drug therapy; 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: [OTH ORTHO RN CURRENT DRUG THERAPY] Onset: 3 Episodic Other aftercare (1 source) Long-term current use of anticoagulant; 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: [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] Onset: 5 Episodic Other circulatory disease (2 sources) Elevated blood-pressure reading without diagnosis of hypertension; 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: [Elevated blood-pressure reading, without diagnosis of hypertension] Episodic Other congenital anomalies (2 sources) Congenital spondylolysis of lumbosacral region; 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: [Congenital spondylolysis, lumbosacral region] Onset: 7 Chronic Other diseases of kidney and ureters (2 sources) Urinary tract obstruction; 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: [Other obstructive and reflux uropathy] Onset: 3 Episodic Other gastrointestinal disorders (3 sources) Dysphagia; 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: [Dysphagia, unspecified] 03-11-2024 Episodic Other gastrointestinal disorders (3 sources) Dysphagia, unspecified; 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: [Dysphagia, unspecified] 03-11-2024 Episodic Other male genital disorders (6 sources) Impotence; 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: [Male erectile dysfunction, unspecified] Onset: 5 05-24-2020 Chronic Other nutritional; endocrine; and metabolic disorders (2 sources) Body mass index 25-29 - overweight; 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: [Body mass index (BMI) 27.0-27.9, adult] Episodic Other screening for suspected conditions (not mental disorders or infectious disease) (10 sources) Raised prostate specific antigen; 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: [Elevated [...] of mental health and substance abuse codes (5 sources) H/O: Disorder; 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: [Personal history of nicotine dependence] Onset: 3 Episodic Spondylosis; intervertebral disc disorders; other back problems (4 sources) Low back pain; 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: [Low back pain, unspecified] Onset: 7 Episodic Unclassified (2 sources) Finding of sensation of bladder 05-06-2019 Unclassified (1 source) CONTACT W/AND (SUSP) EXPOS COVID-19; 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: [CONTACT W/AND (SUSP) EXPOS COVID-19] Onset: 3 Unclassified (2 sources) Drug therapy finding 06-29-2024 Past or Other Problems Problem Classification Problem Date Documented Da te Episodic/Chronic Other lower respiratory disease (4 sources) Dyspnea; 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: [Dyspnea, unspecified] Onset: 08-06-2014 Episodic Results Test Name Value Interpretation Reference Range Facility Ambulatory Visit Summaryon 0 10-26-2024 Ambulatory Visit Summary Ambulatory Visit Summary ROSALINO PAEZ :1955 Visit Date:10/26/2024 Ambulatory Visit Instructions Your Diagnosis Erectile dysfunction Myocardial infarction Your Care Team Attending Physician - GREG HEREDIA PA-C Primary Care Physician - MARKO CISNEROS MD This Is Your Medications List aspirin (aspirin 81 mg oral capsule) atorvastatin (atorvastatin 40 mg Tab) carvedilol (carvedilol 6.25 mg Tab) losartan (losartan 25 mg Tab) nitroglycerin (nitroglycerin 0.4 mg sublingual Tab) pantoprazole (Pantoprazole [address] Tab) tamsulosin (Flomax 0.4 mg Cap) triamcinolone nasal (Nasacort Allergy 24HR nasal spray) Procedures Performed Transurethral resection of prostate (08/27/2018), Cystoscopy (08/18/2018), Transrectal biopsy of prostate using ultrasound (US) guidance (10/30/2017), Transrectal biopsy of prostate using ultrasound (US) guidance (10/13/2010), Diskectomy, Placement of stent in cardiac conduit. Discharge Vitals Heart Rate (Peripheral) 70 Blood Pressure 128/76 Height 184 cm Height 72 in Weight 100 kg Weight 220.462 lb BMI 29.54 What to do next Scheduled Follow-Up Appointments Saturday2025 9:00 AM EST With: Where: [facility] [address] [place] [address] [place] [address]- Saturday2025 8:20 AM EST With: GREG HEREDIA PA-C Where: [facility] [address] [place] [address] [place] [address]- You Need to Schedule the Following Appointments Follow Up with Keep previously scheduled follow-up appointment. When: Where: Medications What How Much When Why Instructions Unchanged aspirin (aspirin 81 mg oral capsule) By Mouth Every 24 hours Unchanged atorvastatin (atorvastatin 40 mg Tab) Unchanged carvedilol (carvedilol 6.25 mg Tab) Unchanged losartan (losartan 25 mg Tab) Unchanged nitroglycerin (nitroglycerin 0.4 mg sublingual Tab) 1 Tablets Sublingual Every 5 minutes as needed for for chest pain Unchanged pantoprazole (Pantoprazole [address] Tab) 1 Tablets Unchanged tamsulosin (Flomax 0.4 mg Cap) 1 Capsules By Mouth Every day BPH with urinary obstruction Elevated PSA start 3-5 days prior to flying Unchanged triamcinolone nasal (Nasacort Allergy 24HR nasal spray) Nasal Inhalation Every day Allergies terazosin (Fainting) Contrast Dye (Sinus congestion) Problems Ongoing - Any problem that you are currently receiving treatment for. Anticoagulated BPH with urinary obstruction Elevated PSA Erectile dysfunction Former smoker HTN (hypertension) Hyperlipidemia Myocardial infarction Patient Survey You may receive a survey via text or e-mail asking about your office visit. Please share your experience with us by completing your survey. We appreciate your feedback and thank you for choosing us for your care. Education Materials Erectile Dysfunction Erectile dysfunction (ED) is the inability to get or keep an erection in order to have sexual intercourse. ED is considered a symptom of an underlying disorder and is not considered a disease. ED may include: ??? Inability to get an erection. ??? Lack of enough hardness of the erection to allow penetration. ??? Loss of erection before sex is finished. What are the causes? This condition may be caused by: ??? Physical causes, such as: ? Artery problems. This may include heart disease, high blood pressure, atherosclerosis, and diabetes. ? Hormonal problems, such as low testosterone. ? Obesity. ? Nerve problems. This may include back or pelvic injuries, multiple sclerosis, Parkinson's disease, spinal cord injury, and stroke. ??? Certain medicines, such as: ? Pain relievers. ? Antidepressants. ? Blood pressure medicines and water pills (diuretics). ? Cancer medicines. ? Antihistamines. ? Muscle relaxants. ??? Lifestyle factors, such as: ? Use of drugs such as marijuana, cocaine, or opioids. ? Excessive use of alcohol. ? Smoking. ? Lack of physical activity or exercise. ??? Psychological causes, such as: ? Anxiety or stress. ? Sadness or depression. ? Exhaustion. ? Fear about sexual performance. ? Guilt. What are the signs or symptoms? Symptoms of this condition include: ??? Inability to get an erection. ??? Lack of enough hardness of the erection to allow penetration. ??? Loss of the erection before sex is finished. ??? Sometimes having normal erections, but with frequent unsatisfactory episodes. ??? Low sexual satisfaction in either partner due to erection problems. ??? A curved penis occurring with erection. The curve may cause pain, or the penis may be too curved to allow for intercourse. ??? Never having nighttime or morning erections. How is this diagnosed? This condition is often diagnosed by: ??? Performing a p (more content not included)... Normal [facility] Urology Office/Clinic Noteon 10-26-2024 Urology Office/Clinic Note Urology Office/Clinic Note Chief Complaint 1 year follow up HPI Staff 69 yr old male here to discuss ED meds DX: BPH & Elevated *Flomax PRN when traveling* denies pain/burning denies visible blood denies back/flank pain SHIMS 5 Review of Systems PHQ Score Initial Depression Screen Score: 0 SCORE Physical Exam Vitals & Measurements HR: 70(Peripheral) BP: 128/76 HT: 184 cm HT: 72 in WT: 100 kg WT: 220.462 lb BMI: 29.54 Assessment/Plan 1. Erectile dysfunction (N52.9: Male erectile dysfunction, unspecified) ANTOINETTE 5 Pt has issues achieving erection yes, firmness yes, maintaining erection yes, reaching climax yes ED contributing factors: Cardiovascular disease yes, hypertension yes, diabetes mellitus no, hyperlipidemia yes smoking no recreational drugs no, alcohol no, major surgery (radical prostatectomy) or radiotherapy (pelvis or retroperitoneum) no Spinal cord and brain injuries no, Parkinson disease no, Alzheimer disease no, multiple sclerosis no, stroke no Peyronie's disease no, penile fracture no Hypogonadism no, hyper/hypothyroidism no Antihypertensives yes, antidepressants no, antipsychotics no, antiandrogens no, Performance-related anxiety no, traumatic past experiences no, relationship problems no, anxiety/depression no Pt has tried: vacuum device no, oral medications no Today we discussed all treatment options for ED including oral medications, erectile pumps, intracorporeal injection, and surgical options. We reviewed all of his contributing factors including those that are within his control to change and those which are not. Pt has decided that he would like to try oral medications - risks/benefits, side effects,interactions, and proper use discussed. Prefers daily dosing Cialis compared to PRN Viagra. Will start w Cialis 2.5mg daily once cleared by cardiology (see #2). Pt to call if ineffective after 4-6 wks and can increase to 5mg daily. Ordered: Complex E&M Add on G2211 E&M of Est. Patient Moderate 30-39 Min 33890 2. Myocardial infarction (I21.9: Acute myocardial infarction, unspecified) [place] 03/2023. States it was a maker. Pt has 2 heart stents. Taking ASA only. Stopped Brilinta last year. [1] Does have rx for Nitro. Says he hasn't taken it since Mar 2023. I did review serious interaction btwn Nitro and PD5s. 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 Ordered: Complex E&M Add on G2211 E&M of Est. Patient Moderate 30-39 Min 89180 Orders: Urnls Dip Stick Auto w/o Microscopy POC [id number] Follow-up With When Contact Information Keep previously scheduled follow-up appointment. Additional Instructions: Patient Education Erectile Dysfunction Problem List/Past Medical History Ongoing Anticoagulated BPH with urinary obstruction Elevated PSA Erectile dysfunction Former smoker HTN (hypertension) Hyperlipidemia Myocardial infarction Historical No qualifying data Procedure/Surgical History Transurethral resection of prostate (08/27/2018), Cystoscopy (08/18/2018), Transrectal biopsy of prostate using ultrasound (US) guidance (10/30/2017), Transrectal biopsy of prostate using ultrasound (US) guidance (10/13/2010), Diskectomy, Placement of stent in cardiac conduit. Medications aspirin 81 mg oral capsule, Oral, q24hr atorvastatin 40 mg Tab carvedilol 6.25 mg Tab Flomax 0.4 mg Cap, 0.4 mg= 1 cap(s), Oral, Daily losartan 25 mg Tab Nasacort Allergy 24HR nasal spray, Nasal, Daily nitroglycerin 0.4 mg sublingual Tab, 0.4 mg= 1 tab(s), SubLingual, q5min, PRN Pantoprazole [address] Tab, 40 mg= 1 tab(s) Allergies terazosin (Fainting) Contrast Dye (Sinus congestion) Social History Alcohol - Low Risk, 05/21/2019 Never., 10/26/2024 Substance Abuse Never., 06/30/2024 Tobacco Former smoker, quit more than 30 days ago Tobacco Use:. Never Smokeless Tobacco Use:. Started age 18.0 Years. Stopped age 19 Years., 10/26/2024 Family History Prostate cancer: Father. Renal failure: Father. Immunizations Vaccine Date Status SARS-CoV-2 (COVID-19) Ad26 vaccine 11/26/2020 Recorded Lab Results Ambulatory Point of Care Results Bilirubin Urine Dipstick: Negative (10/26/24 10:35:00) Glucose Urine Dipstick: Negative (10/26/24 10:35:00) Ketones Urine Dipstick: Negative (10/26/24 10:35:00) Leukocytes Urine Dipstick: Negative (10/26/24 10:35:00) Nitrite Urine Dipstick: Negative (10/26/24 10:35:00) Protein Urine Dipstick: Negative (10/26/24 10:35:00) Urine Appearance Urine Dipstick: Clear (10/26/24 10:35:00) Urine Color Urine Dipstick: Light yellow (10/26/24 10:35:00) Urobilinogen Urine Dipstick: Normal 0.2-1 EU/dl (10/26/24 10:35:00) pH Urine Dipstick: 7 (10/26/24 10:35:00) [1] URO - 1 yr f/u; GREG HEREDIA PA-C 06/30/2024 09:53 EST Normal [facility] Comment on above: Result Comment: Elec tronically Signed By: GREG HEREDIA PA-C\.br\Date and Time Signed: 10/26/24 11:20 EDT Ambulatory Visit Summaryon 0 06-30-2024 Ambulatory Visit Summary Ambulatory Visit Summary ROSALINO PAEZ :1955 Visit Date:06/30/2024 Ambulatory Visit Instructions Your Diagnosis BPH with urinary obstruction Elevated PSA Anticoagulated Other obstructive and reflux uropathy Your Care Team Attending Physician - GREG HEREDIA PA-C Primary Care Physician - MARKO CISNEROS MD This Is Your Medications List aspirin (aspirin 81 mg oral capsule) atorvastatin (atorvastatin 40 mg Tab) carvedilol (carvedilol 6.25 mg Tab) losartan (losartan 25 mg Tab) nitroglycerin (nitroglycerin 0.4 mg sublingual Tab) pantoprazole (Pantoprazole [address] Tab) tamsulosin (Flomax 0.4 mg Cap) triamcinolone nasal (Nasacort Allergy 24HR nasal spray) Procedures Performed Transurethral resection of prostate (08/27/2018), Cystoscopy (08/18/2018), Transrectal biopsy of prostate using ultrasound (US) guidance (10/30/2017), Transrectal biopsy of prostate using ultrasound (US) guidance (10/13/2010), Diskectomy, Placement of stent in cardiac conduit. Discharge Vitals Heart Rate (Peripheral) 88 Blood Pressure 144/74 Height 184 cm Height 72 in Weight 95.5 kg Weight 210.541 lb BMI 28.21 What to do next Scheduled Follow-Up Appointments Saturday2025 9:00 AM EST With: Where: [facility] [address] [address]- Saturday2025 8:20 AM EST With: GREG HEREDIA PA-C Where: [facility] [address] [place] [address]- You Need to Schedule the Following Appointments Follow Up with GIOVANNA FORD, DAVIAN LEDEZMA When: In 1 year Where: [address] [place] [address] Medications What How Much When Why Instructions Unchanged aspirin (aspirin 81 mg oral capsule) By Mouth Every 24 hours Unchanged atorvastatin (atorvastatin 40 mg Tab) Unchanged carvedilol (carvedilol 6.25 mg Tab) Unchanged losartan (losartan 25 mg Tab) Unchanged nitroglycerin (nitroglycerin 0.4 mg sublingual Tab) 1 Tablets Sublingual Every 5 minutes as needed for for chest pain Unchanged pantoprazole (Pantoprazole [address] Tab) 1 Tablets Unchanged tamsulosin (Flomax 0.4 mg Cap) 1 Capsules By Mouth Every day BPH with urinary obstruction Elevated PSA start 3-5 days prior to flying Unchanged triamcinolone nasal (Nasacort Allergy 24HR nasal spray) Nasal Inhalation Every day Allergies terazosin (Fainting) Contrast Dye (Sinus congestion) Problems Ongoing - Any problem that you are currently receiving treatment for. Anticoagulated BPH with urinary obstruction Elevated PSA Erectile dysfunction Former smoker HTN (hypertension) Hyperlipidemia Myocardial infarction Patient Survey You may receive a survey via text or e-mail asking about your office visit. Please share your experience with us by completing your survey. We appreciate your feedback and thank you for choosing us for your care. Education Materials Prostate Cancer Screening Prostate cancer screening is [...] recommendations. In general, screening is recommended if: ??? You are age 50 to 70 and [...] have a 10- to 15-year life expectancy. ??? You are younger than age 50, and [...] In general, screening is not recommended if: ??? You are younger than age 40. ??? You are between the ages of 40 and 49 and you have no risk factors. ??? You are 70 years of age or older. At this age, the risks that screening can cause are greater than the benefits that it may provide. If you are at high risk for prostate cancer, your health care provider may recommend that you have screenings more often or that you start screening at a younger age. How is screening for prostate ca (more content not included)... Normal [facility] Urology Office/Clinic Noteon 06-30-2024 Urology Office/Clinic Note Urology Office/Clinic Note Chief Complaint 1 yr w/ psa HPI Staff 69 yr old male here for 1yr PSA w/ PSA DX: BPH & Elevated *Flomax PRN when traveling* PSA 06/21/23- 4.35 06/23/24 - 4.70 pt states he has a trip coming up and would like to have Flomax on hand. Dysuria: _no Incomplete bladder emptying: _no Hematuria: _no Frequency: _q3-4 hrs Urgency: _no Nocturia: _none Stream: _weak Leaking: _no Post void dripping: _no Wearing pads/ Depends: _no Urge incontinence: _no Stress incontinence: _no Incontinence without Sensory Awareness: _no Abdominal pain: _no Flank pain: _no Sexual complaints: _ Review of Systems PHQ Score Initial Depression Screen Score: 0 SCORE Physical Exam Vitals & Measurements HR: 88(Peripheral) BP: 144/74 HT: 72 in HT: 184 cm WT: 95.5 kg WT: 210.541 lb BMI: 28.21 Assessment/Plan 1. BPH with urinary obstruction (N40.1: Benign prostatic hyperplasia with lower urinary tract symptoms) S/p TURP 2018 Terazosin is listed as an allergy due to fainting. Pt was prescribed Flomax May 2022 prior to flying due to hx of developing retention following a trip to [place]. Pt only uses when traveling. Pt is taking tamsulosin only PRN with flying/travel and is _with overall symptom control. Pt is experiencing noside effects. IPSS 4 (2) QoL 1 (0) We discussed current dose and optional changes: increasing tamsulosin to QD adding an additional agent such as finasteride/dutasterid e Pt prefers to continue current regimen with no changes at this time. Does need refill of Flomax for planned travel this year. Ordered: tamsulosin, 0.4 mg = 1 cap(s), Oral, Daily, start 3-5 days prior to flying, # 30 cap(s), Refills(s) 0, Pharmacy: [facility] #[id number], 184, cm, 06/30/24 8:29:00 EST, Height/Length Dosing, 95.5, kg, 06/30/24 8:29:00 EST, Weight Dosing Complex E&M Add on G2211 E&M of Est. Patient Moderate 30-39 Min 31780 Urnls Dip Stick Auto w/o Microscopy POC 79902 2. Elevated PSA (R97.20: Elevated prostate specific antigen [PSA]) PSA Max 8.3 in 2018 w neg TRUS BX. Also neg TRUS BX 2010. 05/11/20 - 4.78 05/17/21 - 4.0 06/13/22 - 5.14 06/21/23 - 4.35 06/23/24 - 4.70 Up 1/2 point from last year but still within his normal range. Repeat in 1 yr. Ordered: tamsulosin, 0.4 mg = 1 cap(s), Oral, Daily, start 3-5 days prior to flying, # 30 cap(s), Refills(s) 0, Pharmacy: [facility]/pharm[facility] #[id number], 184, cm, 06/30/24 8:29:00 EST, Height/Length Dosing, 95.5, kg, 06/30/24 8:29:00 EST, Weight Dosing Complex E&M Add on G2211 E&M of Est. Patient Moderate 30-39 Min 51244 Urnls Dip Stick Auto w/o Microscopy POC 27890 3. Anticoagulated (Z79.01: assisted (current) use of anticoagulants) [place] 03/2023. States it was a maker. Pt has 2 heart stents. Taking ASA only. Stopped Brilinta last year. Ordered: Complex E&M Add on G2211 E&M of Est. Patient Moderate 30-39 Min 57292 Urnls Dip Stick Auto w/o Microscopy POC 53802 4. Erectile dysfunction (N52.9: Male erectile dysfunction, unspecified) ANTOINETTE 3. Does not wish to discuss tx options (unwilling partner). Ordered: Complex E&M Add on G2211 E&M of Est. Patient Moderate 30-39 Min 89146 Other obstructive and reflux uropathy (N13.8: Other obstructive and reflux uropathy) Follow-up With When Contact Information GIOVANNA FORD, GREG Egan, DAVIAN In 1 year [address] [facility] [place] [address] Additional Instructions: Patient Education Prostate Cancer Screening Problem List/Past Medical History Ongoing Anticoagulated BPH with urinary obstruction Elevated PSA Erectile dysfunction Former smoker HTN (hypertension) Hyperlipidemia Myocardial infarction Historical No qualifying data Procedure/Surgical History Transurethral resection of prostate (08/27/2018), Cystoscopy (08/18/2018), Transrectal biopsy of prostate using ultrasound (US) guidance (10/30/2017), Transrectal biopsy of prostate using ultrasound (US) guidance (10/13/2010), Diskectomy, Placement of stent in cardiac conduit. Medications aspirin 81 mg oral capsule, Oral, q24hr atorvastatin 40 mg Tab carvedilol 6.25 mg Tab Flomax 0.4 mg Cap, 0.4 mg= 1 cap(s), Oral, Daily losartan 25 mg Tab Nasacort Allergy 24HR nasal spray, Nasal, Daily nitroglycerin 0.4 mg sublingual Tab, 0.4 mg= 1 tab(s), SubLingual, q5min, PRN Pantoprazole [address] Tab, 40 mg= 1 tab(s) Allergies terazosin (Fainting) Contrast Dye (Sinus congestion) Social History Alcohol - Low Risk, 05/21/2019 Past., 06/30/2024 Substance Abuse Never., 06/30/2024 Tobacco Former smoker, quit more than 30 days ago Tobacco Use:., 06/30/2024 Family History Prostate cancer: Father. Renal failure: Father. Immunizations Vaccine Date Status SARS-CoV-2 (COVID-19) Ad26 vaccine 11/26/2020 Recorded Lab Results Ambulatory Point of Care Results Bilirubin Urine Dipstick: 1+ Small (06/30/24 08:18:00) Blood Urine Dipstick: Negative (06/30/24 08:18:00) (more content not included)... Normal [facility] Comment on above: Result Comment: Elec tronically Signed By: GREG HEREDIA PA-C\Date and Time Signed: 06/30/24 09:54 EST Pathology study report docum entOrdered By: Hua Rebollar on 04-03-2024 Pathology study [facility] Other Phone: Bebeto 04-02-2024 L -- ---- Specimen: [id number] Received: 04/02/24 Status: THEODORA Simpsonnathalia Num: [id number] Spec Type: Surgical Subm Dr: Carolyn Mccartney MD Tissues: A Small Intestine - Biopsy/Polyp (SMALL BOWEL BX'S R/O CELIAC) B GASTRIC FOR HP (GASTRIC BX'S R/O H PYLORI) Procedures: HE/4, Gross/Micro L4/2, H PYLORI ---- Age/ Patient Sex Location Account Attending Physician ---- Rosalino Paez 69/M [id number] Carolyn Mccartney MD ---- SPEC NUM: [id number] RECD: 04/02/24 STATUS: THEODORA GARCIA NUM: [id number] SHIELA: 04/02/24 [facility] DR: Carolyn Mccartney MD ENTERED: 04/02/[address]: EB TYPE: Surgical DEPT: S ENTERED BY: [id number] RECV BY: [id number] ORDERED: HE/4, Gross/Micro L4/2, H PYLORI ORDERED: HE/4, Gross/Micro L4/2, H PYLORI Supplemental Report Addendum 1 Entered: 04/09/241149 To issue extradepartmental consultation from Dr. Muñiz at [facility]. Also see scanned report. A. Small bowel, biopsy: - Small bowel mucosa with reactive epithelial changes including foveolar surface cell metaplasia. B. Stomach, biopsy: - Gastric antral and oxyntic mucosa with minimal chronic inactive gastritis. - Negative for Helicobacter-type microorganisms on H E stain. Addendum Signed (signature on file) Hua Rebollar MD 04/09/24 1149 ---- ---- Specimen: [id number] Received: 04/02/24 Status: THEODORA Garcia Num: [id number] Spec Type: Surgical Subm Dr: Carolyn Mccartney MD Tissues: A Small Intestine - Biopsy/Polyp (SMALL BOWEL BX'S R/O CELIAC) B GASTRIC FOR HP (GASTRIC BX'S R/O H PYLORI) Procedures: HE/4, Gross/Micro L4/2, H PYLORI ---- Patient: PhilippeRosalino Delroy [id number] (Continued) ---- Specimen: [id number] Received: 04/02/24 (Continued) Signed (signature on file) Hua Rebollar MD 04/03/24 1242 ---- Specimen: [id number] Received: 04/02/24 Status: THEODORA Garcia Num: [id number] Spec Type: Surgical Subm Dr: Carolyn Mccartney MD Tissues: A Small Intestine - Biopsy/Polyp (SMALL BOWEL BX'S R/O CELIAC) B GASTRIC FOR HP (GASTRIC BX'S R/O H PYLORI) Procedures: HE/4, Gross/Micro L4/2, H PYLORI ---- Patient: Rosalino Paez [id number] (Continued) ---- Specimen: [id number] Received: 04/02/24 (Continued) Pathological Diagnosis A. Small [...] submitted in a single cassette. (1, ns, [id number] A) JG Part B is received in formalin labeled with the patients name, date of , and gastric BX are two mata-marie, focally erythematous, friable, 0.4 cm each in greatest dimension tissue bits. The specimen is entirely submitted in a single cassette. (1, ns, [id number] B) Microscopic Description A B:Microscopic examination is performed. CPT Codes 84970 x2, 26836 ---- ---- Specimen: [id number] Received: 04/02/24 Status: THEODORA Garcia Num: [id number] Spec Type: Surgical Subm Dr: Carolyn Mccartney MD Tissues: A Small Intestine - Biopsy/Polyp (SMALL BOWEL BX'S R/O CELIAC) B GASTRIC FOR (more content not included)... Normal [facility] Basophils Auto (Bld) [#/Vol] Ordered By: Shyam Rodriguez on 04-02-2023 Basophils (Bld) [#/Vol] 0.0 10*3/uL 0.0-0.2 [facility] Basophils/100 WBC Auto (Bld) Ordered By: Shyam Rodriguez on 04-02-2023 Basophils/100 WBC (Bld) 0.1 % . [facility] Calcium [Mass/volume] in Ser um or PlasmaOrdered By: Shyam Rodriguez on 04-02-2023 Calcium [Mass/Vol] 9.4 mg/dL 8.6-10.3 [facility] Carbon dioxide, total [Moles /volume] in Serum or PlasmaOrdered By: Shyam Rodriguez on 04-02-2023 CO2 [Moles/Vol] 21.2 mmol/L 21.0-31.0 [facility] Chloride [Moles/volume] in S laura or PlasmaOrdered By: Shyam Rodriguez on 04-02-2023 Chloride [Moles/Vol] 106 mmol/L 98-107 [facility] Creatinine [Mass/volume] in Serum or PlasmaOrdered By: Shyam Rodriguez 04-02-2023 Creatinine [Mass/Vol] 1.35 mg/dL 0.70-1.30 [facility] Eosinophils Auto (Bld) [#/Vo l]Ordered By: Shyam Rodriguez 04-02-2023 Eosinophils (Bld) [#/Vol] 0.0 10*3/uL 0.0-0.45 [facility] Eosinophils/100 WBC Auto (Bl d)Ordered By: Shyam Rodriguez on 04-02-2023 Eosinophils/100 WBC (Bld) 0.0 % . [facility] Erythrocyte distribution wid th Auto (RBC) [Ratio]Ordered By: Shyam Rodriguez on 04-02-2023 Erythrocyte distribution width (RBC) [Ratio] 13.1 % 12.0-14.8 [facility] Glucose [Mass/volume] in Ser um or PlasmaOrdered By: Shyam Rodriguez 04-02-2023 Glucose [Mass/Vol] 157 mg/dL 70-100 [facility] Comment on above: ADA recommended refe rence rangeRandom Glucose Reference Range is dependent on time and content of last meal. Glucose of more than 200 mg/dL in a nonstressed, ambulatory subject supports the diagnosis of Diabetes Mellitus. Hematocrit Auto (Bld) [Volum e fraction]Ordered By: Shyam Rodriguez on 04-02-2023 Hematocrit (Bld) [Volume fraction] 43.0 % 38.8-50.0 [facility] Hemoglobin [Mass/volume] in BloodOrdered By: Shyam Rodriguez 04-02-2023 Hemoglobin (Bld) [Mass/Vol] 14.6 g/dL 13.0-17.0 [facility] Leukocytes [#/volume] correc roxanne for nucleated erythrocytes in Blood by Automated counOrdered By: Shyam Rodriguez on 04-02-2023 WBC corrected for nucl RBC Auto (Bld) [#/Vol] 15.1 10*3/uL 4.1-10.5 [facility] Lymphocytes Auto (Bld) [#/Vo l]Ordered By: Shyam Rodriguez on 04-02-2023 Lymphocytes (Bld) [#/Vol] 0.5 10*3/uL 1.00-4.8 [facility] Lymphocytes/100 WBC Auto (Bl d)Ordered By: Shyam Rodriguez on 04-02-2023 Lymphocytes/100 WBC (Bld) 3.2 % . [facility] MCH Auto (RBC) [Entitic mass ]Ordered By: Shyam Rodriguez on 04-02-2023 MCH (RBC) [Entitic mass] 31.4 pg 27.5-35.2 [facility] MCHC Auto (RBC) [Mass/Vol]Or dered By: Shyam Rodriguez on 04-02-2023 MCHC (RBC) [Mass/Vol] 33.9 g/dL 32.5-35.6 [facility] MCV Auto (RBC) [Entitic vol] Ordered By: Shyam Rodriguez on 04-02-2023 MCV (RBC) [Entitic vol] 92.7 fL 83.5-101 [facility] Magnesium [Mass/volume] in S laura or PlasmaOrdered By: Shyam Rodriguez on 04-02-2023 Magnesium [Mass/Vol] 2.2 mg/dL 1.9-2.7 [facility] Monocytes Auto (Bld) [#/Vol] Ordered By: Shyam Rodriguez on 04-02-2023 Monocytes (Bld) [#/Vol] 0.2 10*3/uL 0.0-0.8 [facility] Monocytes/100 WBC Auto (Bld) Ordered By: Shyam Rodriguez on 04-02-2023 Monocytes/100 WBC (Bld) 1.6 % . [facility] Neutrophils Auto (Bld) [#/Vo l]Ordered By: Shyam Rodriguez on 04-02-2023 Neutrophils (Bld) [#/Vol] 14.4 10*3/uL 1.8-7.7 [facility] Neutrophils/100 WBC Auto (Bl d)Ordered By: Shyam Rodriguez on 04-02-2023 Neutrophils/100 WBC (Bld) 95.1 % . [facility] No Panel InformationOrdered By: Shyam Rodriguez on 04-02-2023 Estimated GFR (CKD-EPI) 56.834 mL/Min [facility] Creatinine Clearance (Chem 62.41 [facility] Nucleated erythrocytes [Pres ence] in Blood by Automated countOrdered By: Shyam Rodriguez on 04-02-2023 Nucleated RBC Auto Ql (Bld) 0.1 /100{WBC} 0-0.5 [facility] Platelet mean volume Auto (B ld) [Entitic vol]Ordered By: Shyam Rodriguez on 04-02-2023 Platelet mean volume (Bld) [Entitic vol] 8.3 fL 6.6-10.1 [facility] Platelets Auto (Bld) [#/Vol] Ordered By: Shyam Rodriguez on 04-02-2023 Platelets (Bld) [#/Vol] 232 10*3/uL 150-450 [facility] Potassium [Moles/volume] in Serum or PlasmaOrdered By: Shyam Rodriguez on 04-02-2023 Potassium [Moles/Vol] 3.8 mmol/L 3.5-5.1 [facility] RBC Auto (Bld) [#/Vol]Ordere d By: Shyam Rodriguez on 04-02-2023 RBC (Bld) [#/Vol] 4.64 10*6/uL 3.90-5.60 [facility] Serum or plasma anion gap de terminationOrdered By: Shyam Rodriguez on 04-02-2023 Anion gap [Moles/Vol] 14.6 mmol/L 6.0-15.0 [facility] Sodium [Moles/volume] in Ser um or PlasmaOrdered By: Shyam Rodriguez on 04-02-2023 Sodium [Moles/Vol] 138 mmol/L 136-145 [facility] Troponin I.cardiac [Mass/vol ume] in Serum or Plasma by Detection limit <= 0.01 ng/Ordered By: Inderjit Villegas on 04-02-2023 Troponin I.cardiac DL <= 0.01 ng/mL [Mass/Vol] 320.6 pg/mL 0.0-20.0 [facility] Comment on above: Critical Result : Ca lled to and read back by: RAJENDRA BAUGH at: 04/02/2023 06:00 by:[id number] Urea nitrogen [Mass/volume] in Serum or PlasmaOrdered By: Shyam Rodriguez on 04-02-2023 Urea nitrogen [Mass/Vol] 19 mg/dL 7-25 [facility] WBC Auto (Bld) [#/Vol]Ordere d By: Shyam Rodriguez on 04-02-2023 WBC (Bld) [#/Vol] 15.1 10*3/uL 4.1-10.5 [facility] Activated partial thrombopla stin time (aPTT) in platelet poor plasma by coagulation aOrdered By: Shyam Rodriguez on 04-01-2023 aPTT Coag (PPP) [Time] 174.3 s 25.1-36.5 [facility] Comment on above: A hematocrit value g reater than 55% may lead to inaccurate results in coagulation testing. Patients having hematocrit values >55% require a special collection tube for coagulation studies. Please contact the laboratory at [phone] for redraw instructions. Cholesterol [Mass/volume] in Serum or PlasmaOrdered By: Shyam Rodriguez on 04-01-2023 Cholesterol [Mass/Vol] 224 mg/dL 140-200 [facility] Comment on above: Chol less than 200 m g/dl low riskChol 201-239 mg/dl borderline riskChol 240 mg/dl and greater high risk Cholesterol in LDL Calc [Mas s/Vol]Ordered By: Shyam Rodriguez on 04-01-2023 Cholesterol in LDL [Mass/Vol] 161 mg/dL 0-100 [facility] Comment on above: LDL ATP III CLASSIFI CATIONLDL less than 100 mg/dL OptimalLDL 100-129 mg/dL Near or above optimalLDL 130-159 mg/dL Borderline highLDL 160-189 mg/dL HighLDL greater than 189 mg/dL Very high Cholesterol in VLDL Calc [Ma ss/Vol]Ordered By: Shyam Rodriguez on 04-01-2023 Cholesterol in VLDL [Mass/Vol] 30 mg/dL [facility] Glucose mean value [Mass/vol ume] in Blood Estimated from glycated hemoglobinOrdered By: Shyam Rodriguez on 04-01-2023 Average glucose Estimated from glycated hemoglobin (Bld) [Mass/Vol] 128 mg/dL [facility] Hemoglobin A1c percentageOrd ered By: Shyam Rodriguez on 04-01-2023 HbA1c (Bld) [Mass fraction] 6.1 % 4.3-5.6 [facility] Comment on above: Increased risk for d iabetes: 5.7 - 6.4diabetes: >6.4glycemic control for adults with diabetes: <7.0 Serum or plasma high density lipoprotein (HDL) cholesterol measurementOrdered By: Shyam Rodriguez on 04-01-2023 Cholesterol in HDL [Mass/Vol] 32 mg/dL - [facility] Comment on above: HDL CHOL ATP-III CLA SSIFICATION Cardiovascular RiskHDL > or equal to 60 mg/dL LOWHDL < 40 mg/dL HIGH Serum or plasma total choles terol/high density lipoprotein (HDL) cholesterol mass ratOrdered By: Shyam Rodriguez on 04-01-2023 Cholesterol.total/Lidny sterol in HDL [Mass ratio] 7.0 {ratio} <5.0 [facility] Triglyceride [Mass/volume] i n Serum or PlasmaOrdered By: Shyam Rodriguez on 04-01-2023 Triglyceride [Mass/Vol] 153 mg/dL 0-149 [facility] Comment on above: TRIG ATP III CLASSIF ICATIONTRIG less than 150 mg/dL NormalTRIG 150-199 mg/dL Borderline highTRIG 200-500 mg/dL High TRIG greater than 500 mg/dL Very highStandard traceable to the Center for Disease Conrtrol and Prevention (CDC) test method. NM STRESS/REST MULTIon 08-09 NM STRESS/REST MULTI Patient: MARIAN PAEZ Exam Date: 08/09/2022 : 1955 Gender:M Ordering : DR MARKO CISNEROS M.D. Admission #: [id number] Family : Order #: [id number] CLICK HERE TO VIEW EXAM RADIOLOGY REPORT [...] Kuo M.D. on 08/10/2022 at 08:[address] [facility] ECHOCARDIO M/2D COMPLETEon 0 08-07-2022 ECHOCARDIO M/2D COMPLETE Patient: ROSALINO PAEZ Exam Date: 08/07/2022 : 1955 Gender:M Ordering : DR MARKO CISNEROS M.D. Admission #: [id number] Family : Order #: [id number] CLICK HERE TO VIEW EXAM ECHOCARDIOGRAM REPORT [...] M.D. on 08/07/2022 at 15:29 Normal [facility] BNPon 07-28-2022 Natriuretic peptide B (Bld) [Mass/Vol] 20.0 pg/mL Normal <=900.0 [facility] Comment on above: Performed By: #### B WIRE BRUSH MAKER, CMADM, CMP ####[facility] [address] [place] [address]Dr. Rudy Ortiz CARDIAC GUSTABO ADMITon 023 CK [Catalytic activity/Vol] 109 U/L Normal 39-308 [facility] Comment on above: Performed By: #### B WIRE BRUSH MAKER, CMADM, CMP ####[facility] [address] [place] [address]Dr. Rudy Ortiz CK.MB [Mass/Vol] ng/mL Normal <=3.60 [facility] Comment on above: Performed By: #### B WIRE BRUSH MAKER, CMADM, CMP ####[facility] [address] [place] [address]Dr. Rudy Ortiz HSTROP 6.6 pg/mL Normal 4.0-76.1 [facility] Comment on above: Result Comment: CUT- OFF POINTS HAVE BEEN ESTABLISHED BASED ON THE FOURTH UNIVERSAL DEFINITIONS OF MYOCARDIAL INFARCTION. THE UPPER REFERENCE LIMIT (URL) OF TROPONIN, DEFINED THE 99TH PERCENTILE OF cTnI DISTRIBUTION IN A REFERENCE POPULATION, HAS BEEN CONFIRMED THE DECISION THRESHOLD FOR TN DIAGNOSIS. Performed By: #### B WIRE BRUSH MAKER, CMADM, CMP ####[facility] [address] [place] [address]Dr. Rudy Ortiz ANG 49 ng/mL Normal 16-96 [facility] Comment on above: Performed By: #### B WIRE BRUSH MAKER, CMADM, CMP ####[facility] [address] [place] [address]Dr. Rudy Ortiz CBC W MANUAL DIFFon 07-29-19 23 ATYPICAL LYMPH # Normal [facility] Comment on above: Performed By: #### C TORI ####[facility] [address] [place] [address]Dr. Rudy Ortiz ATYPICAL LYMPH % Normal [facility] Comment on above: Performed By: #### C TORI ####[facility] [address] [place] [address]Dr. Rudy Ortiz BAND # Normal 0.0-0.3 [facility] Comment on above: Performed By: #### C TORI ####[facility] [address] [place], [place] [address]Dr. Rudy Ortiz BAND % Normal 0-5 [facility] Comment on above: Performed By: #### C TORI ####[facility] [address] [place], [place] [address]Dr. Rudy Ortiz BASOM # 0.00 103/ul Normal 0.00-0.10 [facility] Comment on above: Performed By: #### C TORI ####[facility] [address] [place] [address]Dr. Rudy Angel BASOM % 0.0 % Critically low 0.2-2.0 [facility] Comment on above: Performed By: #### C BCEMILEE ####[facility] [address] [place] [address]Dr. Rudy Ortiz BLAST # Normal [facility] Comment on above: Performed By: #### C TORI ####[facility] [address] [place], [place] [address]Dr. Rudy Ortiz BLAST % Normal [facility] Comment on above: Performed By: #### C TORI ####[facility] [address] [place], [place] [address]Dr. Rudy Angel CORRECTED WBC Normal 4.0-11.0 [facility] Comment on above: Performed By: #### C TORI ####[facility] [address] [place] [id number]. Rudy Ortiz EOS # 0.11 103/ul Normal 0.00-0.70 [facility] Comment on above: Performed By: #### C TORI ####[facility] [address] [place] [id number]. Rudy Ortiz EOS% 2.0 % Normal 0.9-7.0 [facility] Comment on above: Performed By: #### C TORI ####[facility] [address] [place] [id number]. Rudy Ortiz HCT 42.9 % Normal 42.0-54.0 [facility] Comment on above: Performed By: #### C TORI ####[facility] [address] [place] [id number]. Rudy Ortiz HGB 14.9 g/dl Normal 14.0-18.0 [facility] Comment on above: Performed By: #### C TORI ####[facility] [address] [place] [id number]. Rudy Ortiz LYMPHM # 0.64 103/ul Critically low 1.20-3.80 [facility] Comment on above: Performed By: #### Delroy VALLE ####[facility] [address] [place] [id number]. Rudy Ortiz LYMPHM% 12.0 % Critically low 20.5-60.0 [facility] Comment on above: Performed By: #### C TORI ####[facility] [address] [place] [id number]. Rudy Ortiz MCH 31.6 pg Normal 25.9-34.0 [facility] Comment on above: Performed By: #### C TORI ####[facility] [address] [place] [id number]. Rudy Ortiz MCHC 34.7 g/dl Normal 29.9-35.2 [facility] Comment on above: Performed By: #### C TORI ####[facility] [address] [place], [place] [address]Mt. Rudy Ortiz MCV 91.1 fL Normal 80.0-94.0 [facility] Comment on above: Performed By: #### C TORI ####[facility] [address] [place] [id number]. Rudy Ortiz METAMYELOCYTE # Normal [facility] Comment on above: Performed By: #### C TORI ####[facility] [address] [place] [id number]. Rudy Ortiz METAMYELOCYTE % Normal [facility] Comment on above: Performed By: #### C TORI ####[facility] [address] [place], [place] [address]Dr. Rudy Ortiz MONOM# 0.80 103/ul Normal 0.30-0.80 [facility] Comment on above: Performed By: #### C TORI ####[facility] [address] [place], [place] [address]Dr. Rudy Ortiz MONOM% 15.0 % Critically high 1.7-12.0 [facility] Comment on above: Performed By: #### C TORI ####[facility] [address] [place], [place] [address]Dr. Rudy Ortiz MPV 9.6 fL Normal 9.5-13.5 [facility] Comment on above: Performed By: #### C TORI ####[facility] [address] [place], [place] [address]Dr. Rudy Ortiz MYELOCYTE # Normal [facility] Comment on above: Performed By: #### C TORI ####[facility] [address] [place] [id number]. Rudy Ortiz MYELOCYTE % Normal [facility] Comment on above: Performed By: #### C TORI ####[facility] [address] [place] [id number]. Rudy Ortiz NRBC Normal [facility] Comment on above: Performed By: #### C TORI ####[facility] [address] [place], [place] [address]Ox. Rudy Ortiz PLT 182 103/ul Normal 150-450 [facility] Comment on above: Performed By: #### Delroy VALLE ####[facility] [address] [place], [place] [address]Lp. Rudy Ortiz RBC 4.71 106/ul Normal 4.70-6.10 [facility] Comment on above: Performed By: #### Delroy VALLE ####[facility] [address] [place] [id number]. Rudy Ortiz RDW 12.5 % Normal 11.0-15.0 [facility] Comment on above: Performed By: #### Delroy VALLE ####[facility] [address] [place], [place] [address]Bn. Rudy Ortiz SEG # 3.76 103/ul Normal 1.40-6.50 [facility] Comment on above: Performed By: #### Delroy VALLE ####[facility] [address] [place] [id number]. Rudy Ortiz SEG % 71.0 % Normal 43.0-75.0 [facility] Comment on above: Performed By: #### Delroy VALLE ####[facility] [address] [place], [place] [address]Su. Rudy Ortiz WBC 5.3 103/ul Normal 4.0-11.0 [facility] Comment on above: Performed By: #### Delroy VALLE ####[facility] [address] [place] [id number]. Rudy Ortiz [facility]18 SARS-CoV-2 (COVID-19) RNA DARIAN+probe Ql (Unsp spec) Not detected Normal NOT DETECTED [facility] Comment on above: Result Comment: When diagnostic [...] for this test is supported by the Manufacturing Shift Supervisor of Health and Human Service's declaration that [...] longer be used). Performed By: #### [facility] #### [facility] [address] [place] [address] Dr. Rudy Ortiz ER URINE PROFILEon 3 Bilirubin Ql (U) Negative Normal NEGATIVE [facility] Comment on above: Performed By: #### Julisa NASH UMICRO #### [facility] [address] [place] [address] Dr. Rudy Ortiz Clarity (U) CLEAR Normal CLEAR [facility] Comment on above: Performed By: #### Julisa NASH UMICRO #### [facility] [address] [place] [address] Dr. Rudy Ortiz Color (U) YELLOW Normal YELLOW [facility] Comment on above: Performed By: #### Julisa NASH UMICRO #### [facility] [address] [place] [address] Dr. Rudy MCKEON A micrscopic examination will be performed if indicated. Normal [facility] Comment on above: Performed By: #### Julisa NASH UMICRO #### [facility] [address] [place] [address] Dr. Rudy Ortiz Glucose Ql (U) Negative Normal NEGATIVE [facility] Comment on above: Performed By: #### Julisa NASH UMICRO #### [facility] [address] [place] [address] Dr. Rudy Ortiz Hemoglobin Ql (U) TRACE-INTACT Abnormal NEGATIVE [facility] Comment on above: Performed By: #### Julisa NASH UMITALORO #### [facility] [address] [place] [address] Dr. Rudy Ortiz Ketones Ql (U) Negative Normal NEGATIVE [facility] Comment on above: Performed By: #### Julisa NASH UMICRO #### [facility] [address] [place] [address] Dr. Rudy Ortiz LEUKOCYTES Negative Normal NEGATIVE [facility] Comment on above: Performed By: #### Julisa NASH, UMICRO #### [facility] [address] [place] [address] Dr. Rudy Ortiz Nitrite Ql (U) Negative Normal NEGATIVE [facility] Comment on above: Performed By: #### Julisa NASH UMICRO #### [facility] [address] [place] [address] Dr. Rudy Ortiz pH (U) 6.5 [pH] Normal 5-9 [facility] Comment on above: Performed By: #### Julisa NASH UMICRO #### [facility] [address] [place] [address] Dr. Rudy Ortiz Protein (U) [Mass/Vol] 30 mg/dL Abnormal NEGAT KARTHIKEYAN/ TRACE [facility] Comment on above: Performed By: #### Julisa NASH UMICRO #### [facility] [address] [place] [address] Dr. Rudy Ortiz SPEC GRAVITY 1.025 Normal 1.005-<=1.[address] [facility] Comment on above: Performed By: #### Julisa NASH UMICRO #### [facility] [address] [place] [address] Dr. Rudy Ortiz UR MICRO IND INDICATED Normal [facility] Comment on above: Performed By: #### Julisa NASH UMICRO #### [facility] [address] [place] [address] Dr. Rudy Ortiz Urobilinogen Qn (U) 1.0 {Comfort'U}/dL Normal 0.2 - 1. 0 [facility] Comment on above: Performed By: #### Julisa NASH UMICRO #### [facility] [address] [place] [address] Dr. Rudy Ortiz PROF 14(COMP METB)on 023 Albumin [Mass/Vol] 4.1 g/dL Normal 3.4-5.0 [facility] Comment on above: Performed By: #### B WIRE BRUSH MAKER, CMADM, CMP ####[facility] [address] [place] [address]Dr. Rudy Ortiz Albumin/Globulin [Mass ratio] 1.2 {ratio} Normal [facility] Comment on above: Performed By: #### B WIRE BRUSH MAKER, CMADM, CMP ####[facility] [address] [place] [address]Dr. Rudy Ortiz ALP [Catalytic activity/Vol] 68 U/L Normal 46-116 [facility] Comment on above: Performed By: #### B WIRE BRUSH MAKER, CMADM, CMP ####[facility] [address] [place] [address]Dr. Rudy Ortiz ALT [Catalytic activity/Vol] 31 U/L Normal 16-63 [facility] Comment on above: Performed By: #### B WIRE BRUSH MAKER, CMADM, CMP ####[facility] [address] [place] [address]Dr. Rudy Ortiz Anion gap [Moles/Vol] 16.2 mmol/L Normal [facility] Comment on above: Performed By: #### B WIRE BRUSH MAKER, CMADM, CMP ####[facility] [address] [place] [address]Dr. Rudy Ortiz AST [Catalytic activity/Vol] 21 U/L Normal 15-37 [facility] Comment on above: Performed By: #### B WIRE BRUSH MAKER, CMADM, CMP ####[facility] [address] [place] [address]Dr. Rudy Ortiz Bilirubin [Mass/Vol] 0.4 mg/dL Normal 0.2-1.0 [facility] Comment on above: Performed By: #### B WIRE BRUSH MAKER, CMADM, CMP ####[facility] [address] [place] [address]Dr. Rudy Ortiz Calcium [Mass/Vol] 8.9 mg/dL Normal 8.5-10.1 [facility] Comment on above: Performed By: #### B WIRE BRUSH MAKER, CMADM, CMP ####[facility] [address] [place] [id number]. Rudy Ortiz Chloride [Moles/Vol] 102 mmol/L Normal 98-107 [facility] Comment on above: Performed By: #### B WIRE BRUSH MAKER, CMADM, CMP ####[facility] [address]smc[address] [place] [id number]. Rudy Ortiz CO2 [Moles/Vol] 24.6 mmol/L Normal 21.0-32.0 [facility] Comment on above: Performed By: #### B WIRE BRUSH MAKER, CMADM, CMP ####[facility] [address] [place] [address]Dr. Rudy Ortiz Creatinine [Mass/Vol] 1.03 mg/dL Normal 0.70-1.30 [facility] Comment on above: Performed By: #### B WIRE BRUSH MAKER, CMADM, CMP ####[facility] [address] [place] [address]Dr. Rudy Ortiz EGFR-AF LIBYAN >60 Normal >=60 [facility] Comment on above: Performed By: #### B WIRE BRUSH MAKER, CMADM, CMP ####[facility] [address] [place] [address]Dr. Rudy Ortiz EGFR-NON AF LIBYAN >60 Normal >=60 [facility] Comment on above: Performed By: #### B WIRE BRUSH MAKER, CMADM, CMP ####[facility] Ymrxqeuvfe[address] [place] [address]Dr. Rudy Ortiz Globulin (S) [Mass/Vol] 3.3 g/dL Normal [facility] Comment on above: Performed By: #### B WIRE BRUSH MAKER, CMADM, CMP ####[facility] [address] [place] [address]Dr. Rudy Ortiz Glucose [Mass/Vol] 153 mg/dL Critically high 74-106 [facility] Comment on above: Performed By: #### B WIRE BRUSH MAKER, CMADM, CMP ####[facility] [address] [place] [address]Dr. Rudy Ortiz Potassium [Moles/Vol] 3.8 mmol/L Normal 3.5-5.1 [facility] Comment on above: Performed By: #### B WIRE BRUSH MAKER, CMADM, CMP ####[facility] [address] [place], [place] [address]Dr. Rudy Ortiz Protein [Mass/Vol] 7.4 g/dL Normal 6.4-8.2 [facility] Comment on above: Performed By: #### B WIRE BRUSH MAKER, CMADM, CMP ####[facility] [address] [place], [place] [address]Dr. Rudy Ortiz Sodium [Moles/Vol] 139 mmol/L Normal 136-145 [facility] Comment on above: Performed By: #### B WIRE BRUSH MAKER, CMADM, CMP ####[facility] [address] [place], [place] [address]Dr. Rudy Ortiz Urea nitrogen [Mass/Vol] 15.0 mg/dL Normal 7.0-18.0 [facility] Comment on above: Performed By: #### B WIRE BRUSH MAKER, CMADM, CMP ####[facility] [address] [place], [place] [address]Dr. Rudy Ortiz Urea nitrogen/Creatinine [Mass ratio] 14.6 mg/mg Normal [facility] Comment on above: Performed By: #### B WIRE BRUSH MAKER, CMADM, CMP ####[facility] [address] [place], [place] [address]Dr. Rudy Ortiz PROTIMEon 07-28-2022 INR Coag (PPP) [Relative time] 0.96 {INR} Normal [facility] Comment on above: Performed By: #### P TT, PT ####[facility] [address] [place], [place] [address]Dr. uRdy Ortiz INR GUIDELINES SEE BELOW Normal [facility] Comment on above: Result Comment: CLARE RED INR: 2.0 - 3.0 CONDITIONS NOT LISTED BELOW 2.5 - 3.5 FOR PROSTHETIC HEART VALVE REPLACEMENT 2.5 - 3.5 RECURRENT THROMBOSIS Performed By: #### P TT, PT ####[facility] [address] [place], [place] [address]Dr. Rudy Ortiz PT Coag (PPP) [Time] 10.2 s Normal 9.0-11.6 [facility] Comment on above: Performed By: #### P TT, PT ####[facility] [address] [place] [id number]. Rudy Ortiz PTTon 07-28-2022 aPTT Coag (Bld) [Time] 29.3 s Normal 22.3-36.2 [facility] Comment on above: Performed By: #### P TT, PT ####[facility] [address] [place] [id number]. Rudy Ortiz TROPONIN, HIGH SENSITIVITYon 07-28-2022 HSTROP 6.0 pg/mL Normal 4.0-76.1 [facility] Comment on above: Result Comment: CUT- OFF POINTS HAVE BEEN ESTABLISHED BASED ON THE FOURTH UNIVERSAL DEFINITIONS OF MYOCARDIAL INFARCTION. THE UPPER REFERENCE LIMIT (URL) OF TROPONIN, DEFINED THE 99TH PERCENTILE OF cTnI DISTRIBUTION IN A REFERENCE POPULATION, HAS BEEN CONFIRMED THE DECISION THRESHOLD FOR [place] DIAGNOSIS. Performed By: #### H STROPN #### [facility] [address] [place] [address] Dr. Rudy Ortiz URINE MICROSCOPIC ONLYon BACTERIA NONE SEEN Normal NONE SEEN [facility] Comment on above: Performed By: #### TYLER AJY #### [facility] [address] [place] [address] Dr. Rudy Ortiz Bacteria identified Cx Nom (U) NOT INDICATED Normal [facility] Comment on above: Performed By: #### SERGIO JAYRO #### [facility] [address] [place] [address] Dr. Rudy Ortiz CAST SEEN Abnormal NONE SEEN [facility] Comment on above: Performed By: #### SERGIO JAYRO #### [facility] [address] [place] [address] Dr. Rudy Ortiz Crystals LM Nom (Urine sed) NONE SEEN Normal NONE SEEN [facility] Comment on above: Performed By: #### Julisa NASH UMICRO #### [facility] [address] [place] [address] Dr. Rudy Ortiz Epithelial cells LM Ql (Urine sed) NONE SEEN Normal NONE SEEN /RARE [facility] Comment on above: Performed By: #### E RUR, UMICRO #### [facility] [address] [place] [address] [address] Rudy Ortiz MUCOUS TRACE Abnormal NONE SEEN [facility] Comment on above: Performed By: #### E RUR, UMICRO #### [facility] [address] [place] [address] [address] Rudy Ortiz RBC NONE SEEN Abnormal 0-2 [facility] Comment on above: Performed By: #### E RUR, UMICRO #### [facility] [address] [place] [address] [address] Rudy Ortiz WBC NONE SEEN Normal NONE SEEN [facility] Comment on above: Performed By: #### E RUR, UMICRO #### [facility] [address] [place] [address] [address] Rudy Ortiz XR CHEST 1 Von [...] [place] Date: 2022-07-28 10:08 Normal [facility] URINALYSISOrdered By: Jj Elder on 06-19-2022 Bilirubin [...] [Mass/Vol] Negative (06/19/22 9:16 AM) Normal Negative FT UA Auto SS Hemoglobin Ql (U) Negative (06/19/22 9:16 AM) Normal Negative FT UA Auto SS Ketones (U) [Mass/Vol] Negative (06/19/22 9:16 AM) Normal Negative FT UA Auto SS [place].plasma/[place]. RBC (Bld) [Mass ratio] 0-3 /HPF Normal 0-3/HPF FT UA Auto SS Mucus Ql (Urine sed) Trace (06/19/22 9:16 AM) Normal FT UA Auto SS Nitrite Ql (U) Negative (06/19/22 9:16 AM) Normal Negative FT UA Auto SS pH (U) 6.0 *NA* (06/19/22 9:16 AM) Invalid Interpretation Code 5.0 - 9.0 [facility] UA Auto SS Protein (U) [Mass/Vol] Negative (06/19/22 9:16 AM) Normal Negative [facility] UA Auto SS Specific gravity (U) [Rel density] 1.025 *NA* (06/19/22 9:16 AM) Invalid Interpretation Code 1.005 - 1.030 FT UA Auto SS UA Spec Desc Random Urine (06/19/22 9:16 AM) Normal [facility] UA Auto SS Urobilinogen Qn (U) 0.8545564 {Comfort'U}/dL Normal 0.0 - 1.0 EU/dL [facility] UA Auto SS WBC Auto Ql (U) Negative (06/19/22 9:16 AM) Normal Negative [facility] UA Auto SS WBC LM.HPF (Urine sed) [#/Area] 0-5 /HPF Normal 0-5/HPF [facility] UA Auto SS CBC AUTO DIFFon 01-15-2022 BASO # 0.0 103/ul Normal 0.0-0.1 [facility] Comment on above: Performed By: #### D ATCBC #### [facility] [address] [place] [address] Dr. Rudy Ortiz Basophils/100 WBC (Bld) 0.6 % Normal 0.2-2.0 [facility] Comment on above: Performed By: #### D ATCBC #### [facility] [address] [place] [address] Dr. Rudy Ortiz EO # 0.6 103/ul Normal 0.0-0.7 [facility] Comment on above: Performed By: #### D ATCBC #### [facility] [address] [place] [address] Dr. Rudy Ortiz Eosinophils/100 WBC (Bld) 9.3 % Critically high 0.9-7.0 [facility] Comment on above: Performed By: #### D ATCBC #### [facility] [address] [place] [address] Dr. Rudy Ortiz Erythrocyte distribution width (RBC) [Ratio] 12.5 % Normal 11.0-15.0 [facility] Comment on above: Performed By: #### D ATCBC #### [facility] [address] [place] [address] Dr. Rudy Ortiz Hematocrit (Bld) [Volume fraction] 43.7 % Normal 42.0-54.0 [facility] Comment on above: Performed By: #### D ATCBC #### [facility] [address] [place] [address] Dr. Rudy Ortiz Hemoglobin (Bld) [Mass/Vol] 14.8 g/dL Normal 14.0-18.0 [facility] Comment on above: Performed By: #### D ATCBC #### [facility] [address] [place] [address] Dr. Rudy Ortiz IG # 0.02 10e3/ul Normal 0.00-0.03 [facility] Comment on above: Performed By: #### D ATCBC #### [facility] [address] [place] [address] Dr. Rudy Ortiz IG % 0.3 % Normal 0.0-0.5 [facility] Comment on above: Performed By: #### D ATCBC #### [facility] [address] [place] [address] Dr. Rudy Ortiz LYMPH # 1.3 103/ul Normal 1.2-3.8 [facility] Comment on above: Performed By: #### D ATCBC #### [facility] [address] [place] [address] Dr. Rudy Ortiz Lymphocytes/100 WBC (Bld) 19.3 % Critically low 20.5-60.0 [facility] Comment on above: Performed By: #### D ATCBC #### [facility] [address] [place] [address] Dr. Rudy Ortiz MCH (RBC) [Entitic mass] 31.4 pg Normal 25.9-34.0 [facility] Comment on above: Performed By: #### D ATCBC #### [facility] [address] [place] [address] Dr. Rudy Ortiz MCHC (RBC) [Mass/Vol] 33.9 g/dL Normal 29.9-35.2 [facility] Comment on above: Performed By: #### D ATCBC #### [facility] [address] [place] [address] Dr. Rudy Ortiz MCV (RBC) [Entitic vol] 92.8 fL Normal 80.0-94.0 [facility] Comment on above: Performed By: #### D ATCBC #### [facility] [address] [place] [address] Dr. Rudy Ortiz MONO # 0.7 103/ul Normal 0.3-0.8 [facility] Comment on above: Performed By: #### D ATCBC #### [facility] [address] [place] [address] Dr. Rudy Ortiz Monocytes/100 WBC (Bld) 9.4 % Normal 1.7-12.0 [facility] Comment on above: Performed By: #### D ATCBC #### [facility] [address] [place] [address] Dr. Rudy Ortiz NEUT # 4.2 103/ul Normal 1.4-6.5 [facility] Comment on above: Performed By: #### D ATCBC #### [facility] [address] [place] [address] Dr. Rudy Ortiz Neutrophils/100 WBC (Bld) 61.1 % Normal 43.0-75.0 [facility] Comment on above: Performed By: #### D ATCBC #### [facility] [address] [place] [address] [address] Rudy Ortiz Platelet mean volume (Bld) [Entitic vol] 9.6 fL Normal 9.5-13.5 [facility] Comment on above: Performed By: #### D ATCBC #### [facility] [address] [place] [address] [address] Rudy Ortiz PLT 205 103/ul Normal 150-450 [facility] Comment on above: Performed By: #### D ATCBC #### [facility] [address] [place] [address] [address] Rudy Ortiz RBC 4.71 106/ul Normal 4.70-6.10 [facility] Comment on above: Performed By: #### D ATCBC #### [facility] [address] [place] [address] Dr. Rudy Ortiz WBC 6.9 103/ul Normal 4.0-11.0 [facility] Comment on above: Performed By: #### D ATCBC #### [facility] [address] [place] [address] Dr. Rudy Ortiz HUMPHREY- BMP WITH LIPIDon 2021 Anion gap [Moles/Vol] 12.8 mmol/L Normal [facility] Comment on above: Performed By: #### D ATBMP #### [facility] [address] [place] [address] Dr. Rudy Ortiz Calcium [Mass/Vol] 9.0 mg/dL Normal 8.5-10.1 [facility] Comment on above: Performed By: #### D ATBMP #### [facility] [address] [place] [address] Dr. Rudy Ortiz Chloride [Moles/Vol] 104 mmol/L Normal 98-107 [facility] Comment on above: Performed By: #### D ATBMP #### [facility] [address] [place] [address] Dr. Rudy Ortiz Cholesterol [Mass/Vol] 165 mg/dL Normal <=200 Th [facility] Comment on above: Performed By: #### D ATBMP #### [facility] [address] [place] [address] [address] Rudy Ortiz Cholesterol in HDL [Mass/Vol] 38 mg/dL Critically low 40-60 [facility] Comment on above: Performed By: #### D ATBMP #### [facility] [address] [place] [address] [address] Rudy Ortiz Cholesterol in LDL [Mass/Vol] 104.4 mg/dL Normal [facility] Comment on above: Performed By: #### D ATBMP #### [facility] [address] [address] [address] Rudy Ortiz CO2 [Moles/Vol] 27.1 mmol/L Normal 21.0-32.0 [facility] Comment on above: Performed By: #### D ATBMP #### [facility] [address] [place] [address] Dr. Rudy Ortiz Creatinine [Mass/Vol] 1.11 mg/dL Normal 0.70-1.30 [facility] Comment on above: Performed By: #### D ATBMP #### [facility] [address] [place] [address] Dr. Rudy Ortiz EGFR-AF LIBYAN >60 Normal >=60 [facility] Comment on above: Performed By: #### D ATBMP #### [facility] [address] [place] [address] Dr. Rudy Ortiz EGFR-NON AF LIBYAN >60 Normal >=60 [facility] Comment on above: Performed By: #### D ATBMP #### [facility] [address] [address] [address] Rudy Ortiz Glucose [Mass/Vol] 121 mg/dL Critically high 74-106 [facility] Comment on above: Performed By: #### D ATBMP #### [facility] [address] [place] [address] Dr. Rudy Ortiz HDL NORMAL > or = 60 mg/dl - LO W CARDIOVASCULAR RISK <40 mg/dl - HIGH CARDIOVASCULAR RISK Normal [facility] Comment on above: Performed By: #### D ATBMP #### [facility] [address] [place] [address] Dr. Rudy Ortiz LDL CALC NORMAL SEE BELOW Normal [facility] Comment on above: Result Comment: <100 mg/dl OPTIMAL 100 - 129 mg/dl NEAR OR ABOVE OPTIMAL 130 - 159 mg/dl BORDERLINE HIGH 160 - 189 mg/dl HIGH >190 mg/dl VERY HIGH Performed By: #### D ATBMP #### [facility] [address] [address] [address] Rudy Ortiz Potassium [Moles/Vol] 3.9 mmol/L Normal 3.5-5.1 [facility] Comment on above: Performed By: #### D ATBMP #### [facility] [address] [address] [address] Rudy Ortiz Sodium [Moles/Vol] 140 mmol/L Normal 136-145 [facility] Comment on above: Performed By: #### D ATBMP #### [facility] [address] [address] [address] Rudy Otriz Triglyceride [Mass/Vol] 113 mg/dL Normal <=150 T [facility] Comment on above: Performed By: #### D ATBMP #### [facility] [address] [address] [address] Rudy Ortiz Urea nitrogen [Mass/Vol] 12.0 mg/dL Normal 7.0-18.0 [facility] Comment on above: Performed By: #### D ATBMP #### [facility] [address] [address] [address] Rudy Ortiz Urea nitrogen/Creatinine [Mass ratio] 10.8 mg/mg Normal [facility] Comment on above: Performed By: #### D ATBMP #### [facility] [address] [address] [address] Rudy Ortiz VLDL CALC 22.6 mg/dL Normal [facility] Comment on above: Performed By: #### D ATBMP #### [facility] [id number] Rudy Ortiz Vital Signs Date Time Vital Sign Value Performing Clinician Facility 06-30-2024 08:21-0500 Blood Pressure Location GREGINEZ HEREDIA [facility] 06-30-2024 08:21-0500 Diastolic blood pressure 74 mm[Hg] GREG HEREDIA [facility] 06-30-2024 08:21-0500 Heart rate 88 /min GREG HEREDIA [facility] 06-30-2024 08:21-0500 Systolic blood pressure 144 mm[Hg] GREG HEREDIA [facility] 05-29-2024 11:44-0500 Body height 182.88 cm Marko Cisneros MD Work Phone: [facility] 05-29-2024 11:44-0500 Body mass index (BMI) [Ratio] 29.9 kg/m2 Marko Cisneros MD Work Phone: [facility] 05-29-2024 11:44-0500 Body weight 100.24 kg Marko Cisneros MD Work Phone: [facility] 05-29-2024 11:44-0500 Diastolic blood pressure 70 mm[Hg] Marko Cisneros MD Work Phone: [facility] 05-29-2024 11:44-0500 Heart rate 65 /min Marko Cisneros MD Work Phone: [facility] 05-29-2024 11:44-0500 Respiratory rate 18 /min Marko Cisneros MD Work Phone: [facility] 05-29-2024 11:44-0500 SaO2% (BldA) [Mass fraction] 97 % Marko Cisneros MD Work Phone: [facility] 05-29-2024 11:44-0500 Systolic blood pressure 136 mm[Hg] Marko Cisneros MD Work Phone: [facility] 04-22-2024 10:06-0500 Body height 182.88 cm Marko Cisneros MD Work Phone: [facility] 04-22-2024 10:06-0500 Body mass index (BMI) [Ratio] 29.4 kg/m2 Marko Cisneros MD Work Phone: [facility] 04-22-2024 10:06-0500 Body temperature 97.6 [degF] Marko Cisneros MD Work Phone: [facility] 04-22-2024 10:06-0500 Body weight 98.42 kg Marko Cisneros MD Work Phone: [facility] 04-22-2024 10:06-0500 Diastolic blood pressure 69 mm[Hg] Marko Cisneros MD Work Phone: [facility] 04-22-2024 10:06-0500 Heart rate 64 /min Marko Cisneros MD Work Phone: [facility] 04-22-2024 10:06-0500 Systolic blood pressure 129 mm[Hg] Marko Cisneros MD Work Phone: [facility] 04-02-2024 14:03-0500 Diastolic blood pressure 69 mm[Hg] Marko Cisneros MD Work Phone: [facility] 04-02-2024 14:03-0500 Heart rate 67 /min Marko Cisneros MD Work Phone: [facility] 04-02-2024 14:03-0500 Respiratory rate 16 /min Marko Cisneros MD Work Phone: [facility] 04-02-2024 14:03-0500 SaO2% (BldA) [Mass fraction] 98 % Marko Cisneros MD Work Phone: [facility] 04-02-2024 14:03-0500 Systolic blood pressure 135 mm[Hg] Marko Cisneros MD Work Phone: [facility] 04-02-2024 12:01-0500 Body height 182.88 cm Marko Cisneros MD Work Phone: [facility] 04-02-2024 12:01-0500 Body weight 95.25 kg Marko Cisneros MD Work Phone: [facility] 03-11-2024 14:09-0400 Body height 182.88 cm [facility] 03-11-2024 14:09-0400 Body mass index (BMI) [Ratio] 28.5 kg/m2 [facility] 03-11-2024 14:09-0400 Body weight 95.25 kg [facility] 03-11-2024 14:09-0400 Diastolic blood pressure 69 mm[Hg] [facility] 03-11-2024 14:09-0400 Heart rate 62 /min [facility] 03-11-2024 14:09-0400 Systolic blood pressure 138 mm[Hg] [facility] 02-17-2024 11:01-0400 Body height 182.88 cm [facility] 02-17-2024 11:01-0400 Body mass index (BMI) [Ratio] 29.9 kg/m2 [facility] 02-17-2024 11:01-0400 Body weight 100.24 kg [facility] 02-17-2024 11:01-0400 Diastolic blood pressure 78 mm[Hg] [facility] 02-17-2024 11:01-0400 Heart rate 68 /min [facility] 02-17-2024 11:01-0400 Respiratory rate 18 /min [facility] 02-17-2024 11:01-0400 SaO2% (BldA) [Mass fraction] 98 % [facility] 02-17-2024 11:01-0400 Systolic blood pressure 134 mm[Hg] [facility] 08-08-2023 11:59-0400 Body height 182.88 cm [facility] 08-08-2023 11:59-0400 Body mass index (BMI) [Ratio] 28.8 kg/m2 [facility] 08-08-2023 11:59-0400 Body weight 96.61 kg [facility] 08-08-2023 11:59-0400 Diastolic blood pressure 58 mm[Hg] [facility] 08-08-2023 11:59-0400 Heart rate 68 /min [facility] 08-08-2023 11:59-0400 Respiratory rate 18 /min [facility] 08-08-2023 11:59-0400 SaO2% (BldA) [Mass fraction] 98 % [facility] 08-08-2023 11:59-0400 Systolic blood pressure 120 mm[Hg] [facility] 05-04-2023 10:35-0500 Body height 182.88 cm Zina Bishop Other [employer] [facility] [employer] Other 05-04-2023 10:35-0500 Body mass index (BMI) [Ratio] 28.32 kg/m2 Zina Bishop Other [employer] Other 05-04-2023 10:35-0500 Body temperature 97.9 [degF] Zina [employer] Other [employer] Other 05-04-2023 10:35-0500 Body weight 94.71 kg Zina Bishop Other [employer] Other 05-04-2023 10:35-0500 Diastolic blood pressure 68 mm[Hg] Zina Bishop Other [employer] Other 05-04-2023 10:35-0500 Respiratory rate 18 /min Zina Bishop Other [employer] Other 05-04-2023 10:35-0500 SaO2% (BldA) [Mass fraction] 96 % Zina Bishop Other [employer] Other 05-04-2023 10:35-0500 Systolic blood pressure 132 mm[Hg] Zina Bishop Other [employer] Other 04-16-2023 14:40-0500 Body height 182.88 cm Meagan Zak Other [employer] Other 04-16-2023 14:40-0500 Body mass index (BMI) [Ratio] 28.21 kg/m2 Meagan Zak Other [employer] Other 04-16-2023 14:40-0500 Body weight 94.35 kg Meagan Zak Other [employer] Other 04-16-2023 14:40-0500 Diastolic blood pressure 70 mm[Hg] Meagan Zak Other [employer] Other 04-16-2023 14:40-0500 Respiratory rate 18 /min Meagan Zak Other [employer] Other 04-16-2023 14:40-0500 SaO2% (BldA) [Mass fraction] 96 % Meagan Zak Other [employer] Other 04-16-2023 14:40-0500 Systolic blood pressure 140 mm[Hg] Meagan Zak Other [employer] Other 04-04-2023 09:30-0500 Body height 182.88 cm Marko Cisneros Other [employer] Other 04-04-2023 09:30-0500 Body mass index (BMI) [Ratio] 28.42 kg/m2 Marko Cisneros Other [employer] Other 04-04-2023 09:30-0500 Body weight 95.07 kg Marko Cisneros Other [employer] Other 04-04-2023 09:30-0500 Diastolic blood pressure 71 mm[Hg] Marko Cisneros Other [facility] [employer] Other 04-04-2023 09:30-0500 Systolic blood pressure 127 mm[Hg] Marko Cisneros Other [facility] [employer] Other 04-02-2023 11:13-0500 Diastolic blood pressure 78 mm[Hg] MD Marko Cisneros Work Phone: [facility] 04-02-2023 11:13-0500 Heart rate 80 /min MD Marko Cisneros Work Phone: [facility] 04-02-2023 11:13-0500 Respiratory rate 16 /min MD Marko Cisneros Work Phone: [facility] 04-02-2023 11:13-0500 SaO2% (BldA) [Mass fraction] 97 % MD Marko Cisneros Work Phone: [facility] 04-02-2023 11:13-0500 Systolic blood pressure 137 mm[Hg] MD Marko Cisneros Work Phone: [facility] 04-02-2023 07:16-0500 Body temperature 98.4 [degF] MD Marko Cisneros Work Phone: [facility] 04-02-2023 06:00-0500 Body weight 97 kg MD Marko Cisneros Work Phone: [facility] 03-31-2023 20:14-0500 Body height 182.88 cm MD Marko Cisneros Work Phone: [facility] 03-15-2023 10:45-0400 Body height 182.88 cm Marko Cisneros Other [facility] [employer] Other 03-15-2023 10:45-0400 Body mass index (BMI) [Ratio] 28.88 kg/m2 Marko Cisneros Other [employer] Other 03-15-2023 10:45-0400 Body temperature 97.5 [degF] Marko Cisneros Other [employer] Other 03-15-2023 10:45-0400 Body weight 96.62 kg Marko Cisneros Other [employer] Other 03-15-2023 10:45-0400 Diastolic blood pressure 81 mm[Hg] Marko Cisneros Other [employer] Other 03-15-2023 10:45-0400 Systolic blood pressure 140 mm[Hg] Marko Cisneros Other [employer] Other 06-19-2022 08:31-0500 Blood Pressure Location GREG HREEDIA [facility] 06-19-2022 08:31-0500 Diastolic blood pressure 89 mm[Hg] GREG GIOVANNA [facility] 06-19-2022 08:31-0500 Heart rate 66 /min GREG GIOVANNA [facility] 06-19-2022 08:31-0500 Respiratory rate 16 /min GREG GIOVANNA [facility] 06-19-2022 08:31-0500 Systolic blood pressure 140 mm[Hg] GREG GIOVANNA [facility] Encounters Encounter Date Encounter Type Care Provider Facility Start: 10-26-2024 End: 10-26-2024 ambulatory GREG HEREDIA Facility:[facility] Start: 10-26-2024 End: 10-26-2024 Patient encounter procedure [facility] Start: 06-30-2024 End: 06-30-2024 ambulatory GREG HEREDIA [facility] Start: 06-30-2024 End: 06-30-2024 Patient encounter procedure GREG HEREDIA [facility] Start: 05-29-2024 End: 05-29-2024 ambulatory Marko Cisneros MD Work Phone: [facility] Work Phone: Start: 05-29-2024 End: 05-29-2024 Patient encounter procedure Marko Cisneros MD Work Phone: [facility] Work Phone: Start: 04-22-2024 End: 04-22-2024 Patient encounter procedure Marko Cisneros MD Work Phone: [facility] Work Phone: Start: 04-02-2024 Non-patient / Non-visit Marko Cisneros MD Work Phone: [facility] Work Phone: Start: 04-02-2024 End: 04-02-2024 Admission to same day surgery center Marko Cisneros MD Work Phone: [facility] Work Phone: Start: 04-02-2024 End: 04-02-2024 ambulatory Marko Cisneros MD Work Phone: [facility] Work Phone: Start: 03-11-2024 End: 03-11-2024 ambulatory [facility] Work Phone: Start: 03-11-2024 End: 03-11-2024 Patient encounter procedure [facility] Work Phone: Start: 02-17-2024 End: 02-17-2024 ambulatory [facility] Work Phone: Start: 02-17-2024 End: 02-17-2024 Patient encounter procedure [facility] Work Phone: Start: 08-08-2023 End: 08-08-2023 ambulatory [facility] Work Phone: Start: 08-08-2023 End: 08-08-2023 Patient encounter procedure [facility] Work Phone: Start: 05-08-2023 End: 05-08-2023 ambulatory EBEN TEE Not Available Start: 05-04-2023 End: 05-04-2023 ambulatory Zina Bishop Other [employer] Other Start: 05-04-2023 Office outpatient vi sit 25 minutes Zina Bishop [facility] Start: 04-16-2023 End: 04-16-2023 ambulatory Meagan Zak Other [employer] Other Start: 04-16-2023 Office outpatient vi sit 25 minutes Meagan Zak [facility] Start: 04-04-2023 End: 04-04-2023 ambulatory Marko Cisneros Other [employer] Other Start: 04-04-2023 Transitional care manage srvc 14 day discharge Marko Cisneros [facility] Start: 04-03-2023 End: 04-03-2023 ambulatory Marko Cisneros Other [employer] Other Start: 04-03-2023 Telephone encounter Marko Cisneros [facility] Start: 03-31-2023 End: 04-02-2023 Evaluation and management of inpatient MD Marko Cisneros Work Phone: [facility] Work Phone: Start: 03-15-2023 End: 03-15-2023 ambulatory Marko Cisneros Other [employer] Other Start: 03-15-2023 Office outpatient vi sit 15 minutes Marko Cisneros [facility] Start: 08-10-2022 End: 08-10-2022 ambulatory Marko Cisneros Other [employer] Other Start: 08-10-2022 Telephone encounter Marko Cisneros [facility] Start: 08-09-2022 End: 08-10-[address] MAYRA KUO Facility:[facility] Start: 08-08-2022 End: 08-08-2022 ambulatory Marko Cisneros Other [employer] Other Start: 08-08-2022 Telephone encounter Marko Cisneros [facility] Start: 08-07-2022 End: 08-08-[address] MARKO CISNEROS Facility:[facility] Start: 07-28-2022 End: 07-28-[address] MARKO CISNEROS Facility:[facility] Start: 06-19-2022 End: 06-19-2022 Lab Drop off GREG HEREDIA [facility] Start: 06-19-2022 End: 06-19-2022 Patient encounter procedure GREG HEREDIA [facility] Start: 06-13-2022 End: 06-14-[address] MARKO CISNEROS Facility:[facility] Start: 01-15-2022 End: 01-16-[address] MARKO CISNEROS Facility:[facility] Start: 11-23-2021 Adult health examination Marko Cisneros Other [employer] Other Procedures Date Procedure Procedure Detail Performing [...] Comment on above: Performed By: #### PSAD ####[facility] [address] [place], [place] [address]Dr. Rudy Ortiz Start: 08-27-2018 Transurethral prostatectomy GREG MARTÍNEZ Start: 08-18-2018 Cystoscopy GREG HEREDIA Start: 10-30-2017 Transrectal biopsy of prostate using ultrasound guidance GREG HEREDIA Start: 09-03-2016 Pre-surgery evaluation Marko Cisneros Other Start: 10-13-2010 Transrectal biopsy of prostate using ultrasound guidance GREG HEREDIA Discectomy of spine GREG HEREDIA Placement of stent i n cardiac conduit GREG HEREDIA Plan of Treatment Date Care Activity Detail Author Start: 07-05-2025 ambulatory Ambulatory Facility:[facility] Start: 06-29-2025 ambulatory Ambulatory Facility:[facility] Start: 04-02-2024 [facility] Start: 02-17-2024 Patient referral [facility] Work Phone: Start: 04-02-2023 [facility] Start: 04-01-2023 [facility] Start: 03-31-2023 Sleep disorder assessment [facility] Start: 03-31-2023 Hospital admission [facility] Start: 03-31-2023 Referral to frame wirer [facility] Patient Education [facility] Work Phone: Patient referral [facility] Work Phone: Immunizations Immunization Date Immunization Notes Care Provider Noemy camacho 11-26-2020 SARS-CoV-2 (COVID-19 ) Ad26 vaccine, recombinant GREG HEREDIA [facility] Payers Date Payer Category Payer Medicare [id number] 1960 Medicare [id number]. [id number] 1960 Self-pay [id number] 1955 Unknown [id number] [id number] 1955 Unknown [id number] 2.16.84 [id number] 1954 Unknown [id number] 2.16.84 [id number] 1954 Unknown [id number] 2.16.84 [id number] 1954 Unknown [id number] 1954 Unknown [id number] 2.16.8 [id number] 1954 Unknown [id number] 2.16.8 [id number] 1954 Unknown [id number] 2.16.8 [id number] 1954 Unknown [id number] 2.16.8 [id number] Medicare Medicare [id number] Unknown [id number] [id number] [id number] Social History Date Type Detail Facility Start: 06-19-2022 End: 10-26-2024 Tobacco smoking status Ex-smoker (finding) [facility] Sex Assigned At Male [facility] Start: 04-01-2023 [facility] Start: 1955 Sex Assigned At Male [facility] Start: 12-26-2018 End: 04-02-2024 Sex Male (finding) [facility] Tobacco smoking status Never [facility] Sexual Orientation [facility] Medical Equipment Procedure Code Equipment Code Equipment [...] /State Functional Status Date Assessment Result Facility 06-30-2024 Functional Status N/A [facility] 04-02-2023 Functional status Patient at Baseline [facility] Work Phone: 06-19-2022 Functional Status N/A [facility] Mental Status Date Assessment Result Facility 04-02-2023 Cognitive function Cognitive Sta tus Patient at Baseline [facility] Work Phone: Clinical Notes 06-19-2022 to 10-26-2024 Note Date & Type Note Facility 10-26-2024 Hospital Discharge instructions Patient Education 10/26/2024 11:19:15 Erectile Dysfunction Erectile Dysfunction Erectile dysfunction (ED) is the inability to get or keep an erection in order to have sexual intercourse. ED is considered a symptom of an underlying disorder and is not considered a disease. ED may include: Inability to get an erection. Lack of enough hardness of the erection to allow penetration. Loss of erection before sex is finished. What are the causes? This condition may be caused by: Physical causes, such as: ?Artery problems. This may include heart disease, high blood pressure, atherosclerosis, and diabetes. ?Hormonal problems, such as low testosterone. ?Obesity. ?Nerve problems. This may include back or pelvic injuries, multiple sclerosis, Parkinson's disease, spinal cord injury, and stroke. Certain medicines, such as: ?Pain relievers. ?Antidepressants. ?Blood pressure medicines and water pills (diuretics). ?Cancer medicines. ?Antihistamines. ?Muscle relaxants. Lifestyle factors, such as: ?Use of drugs such as marijuana, cocaine, or opioids. ?Excessive use of alcohol. ?Smoking. ?Lack of physical activity or exercise. Psychological causes, such as: ?Anxiety or stress. ?Sadness or depression. ?Exhaustion. ?Fear about sexual performance. ?Guilt. What are the signs or symptoms? Symptoms of this condition include: Inability to get an erection. Lack of enough hardness of the erection to allow penetration. Loss of the erection before sex is finished. Sometimes having normal erections, but with frequent unsatisfactory episodes. Low sexual satisfaction in either partner due to erection problems. A curved penis occurring with erection. The curve may cause pain, or the penis may be too curved to allow for intercourse. Never having nighttime or morning erections. How is this diagnosed? This condition is often diagnosed by: Performing a physical exam to find other diseases or specific problems with the penis. Asking you detailed questions about the problem. Doing tests, such as: ?Blood tests to check for diabetes mellitus or high cholesterol, or to measure hormone levels. ?Other tests to check for underlying health conditions. ?An ultrasound exam to check for scarring. ?A test to check blood flow to the penis. Doing a sleep study at home to measure nighttime erections. How is this treated? This condition may be treated by: Medicines, such as: ?Medicine taken by mouth to help you achieve an erection (oral medicine). ?Hormone replacement therapy to replace low testosterone levels. ?Medicine that is injected into the penis. Your health care provider may instruct you how to give yourself these injections at home. ?Medicine that is delivered with a short applicator tube. The tube is inserted into the opening at the tip of the penis, which is the opening of the urethra. A tiny pellet of medicine is put in the urethra. The pellet dissolves and enhances erectile function. This is also called MUSE (medicated urethral system for erections) therapy. Vacuum pump. This is a pump with a ring on it. The pump and ring are placed on the penis and used to create pressure that helps the penis become erect. Penile implant surgery. In this procedure, you may receive: ?An inflatable implant. This consists of cylinders, a pump, and a reservoir. The cylinders can be inflated with a fluid that helps to create an erection, and they can be deflated after intercourse. ?A semi-rigid implant. This consists of two silicone rubber rods. The rods provide some rigidity. They are also flexible, so the penis can both curve downward in its normal position and become straight for sexual intercourse. Blood vessel surgery to improve blood flow to the penis. During this procedure, a blood vessel from a different part of the body is placed into the penis to allow blood to flow around (bypass) damaged or blocked blood vessels. Lifestyle changes, such as exercising more, losing weight, and quitting smoking. Follow these instructions at home: Medicines Take [id number] and prescription medicines only as told by your health care provider. Do not increase the dosage without first discussing it with your health care provider. If you are using self-injections, do injections as directed by your health care provider. Make sure you avoid any veins that are on the surface of the penis. After giving an injection, apply pressure to the injection site for 5 minutes. Talk to your health care provider about how to prevent headaches while taking ED medicines. These medicines may cause a sudden headache due to the increase in blood flow in your body. General instructions Exercise regularly, as directed by your health care provider. Work with your health care provider to lose weight, if needed. Do not use any products that contain nicotine or tobacco. These products include cigarettes, chewing tobacco, and vaping devices, such as e-cigarettes. If you need help quitting, ask your health care provider. Before using a vacuum pump, read the instructions that come with the pump and discuss any questions with your health care provider. Keep all follow-up visits. This is important. Contact a health care provider if: You feel nauseous. You are vomiting. You get sudden headaches while taking ED medicines. You have any concerns about your sexual health. Get help right away if: You are taking oral or injectable medicines and you have an erection that lasts longer than 4 hours. If your health care provider is unavailable, go to the nearest emergency room for evaluation. An erection that lasts much longer than 4 hours can result in permanent damage to your penis. You have severe pain in your groin or abdomen. You develop redness or severe swelling of your penis. You have redness spreading at your groin or lower abdomen. You are unable to urinate. You experience chest pain or a rapid heartbeat (palpitations) after taking oral medicines. These symptoms may represent a serious problem that is an emergency. Do not wait to see if the symptoms will go away. Get medical help right away. Call your local emergency services (911 in the [place] Do not drive yourself to the hospital. Summary Erectile dysfunction (ED) is the inability to get or keep an erection during sexual intercourse. This condition is diagnosed based on a physical exam, your symptoms, and tests to determine the cause. Treatment varies depending on the cause and may include medicines, hormone therapy, surgery, or a vacuum pump. You may need follow-up visits to make sure that you are using your medicines or devices correctly. Get help right away if you are taking or injecting medicines and you have an erection that lasts longer than 4 hours. This information is not intended to replace advice given to you by your health care provider. Make sure you discuss any questions you have with your health care provider. Document Revised: 08/02/2021 Document Reviewed: 08/02/2021 [employer] Patient Education 2023 [employer]. Follow Up Care 10/14/2024 13:10:54 With:Keep previously scheduled follow-up appointment. Address: When: Unknown [facility] 10-26-2024 Note Patient Education Urology Erectile Dysfunction Erectile dysfunction (ED) is the inability to get or keep an erection in order to have sexual intercourse. ED is considered a symptom of an underlying disorder and is not considered a disease. ED may include: ??? Inability to get an erection. ??? Lack of enough hardness of the erection to allow penetration. ??? Loss of erection before sex is finished. What are the causes? This condition may be caused by: ??? Physical causes, such as: ? Artery problems. This may include heart disease, high blood pressure, atherosclerosis, and diabetes. ? Hormonal problems, such as low testosterone. ? Obesity. ? Nerve problems. This may include back or pelvic injuries, multiple sclerosis, Parkinson's disease, spinal cord injury, and stroke. ??? Certain medicines, such as: ? Pain relievers. ? Antidepressants. ? Blood pressure medicines and water pills (diuretics). ? Cancer medicines. ? Antihistamines. ? Muscle relaxants. ??? Lifestyle factors, such as: ? Use of drugs such as marijuana, cocaine, or opioids. ? Excessive use of alcohol. ? Smoking. ? Lack of physical activity or exercise. ??? Psychological causes, such as: ? Anxiety or stress. ? Sadness or depression. ? Exhaustion. ? Fear about sexual performance. ? Guilt. What are the signs or symptoms? Symptoms of this condition include: ??? Inability to get an erection. ??? Lack of enough hardness of the erection to allow penetration. ??? Loss of the erection before sex is finished. ??? Sometimes having normal erections, but with frequent unsatisfactory episodes. ??? Low sexual satisfaction in either partner due to erection problems. ??? A curved penis occurring with erection. The curve may cause pain, or the penis may be too curved to allow for intercourse. ??? Never having nighttime or morning erections. How is this diagnosed? This condition is often diagnosed by: ??? Performing a physical exam to find other diseases or specific problems with the penis. ??? Asking you detailed questions about the problem. ??? Doing tests, such as: ? Blood tests to check for diabetes mellitus or high cholesterol, or to measure hormone levels. ? Other tests to check for underlying health conditions. ? An ultrasound exam to check for scarring. ? A test to check blood flow to the penis. ??? Doing a sleep study at home to measure nighttime erections. How is this treated? This condition may be treated by: ??? Medicines, such as: ? Medicine taken by mouth to help you achieve an erection (oral medicine). ? Hormone replacement therapy to replace low testosterone levels. ? Medicine that is injected into the penis. Your health care provider may instruct you how to give yourself these injections at home. ? Medicine that is delivered with a short applicator tube. The tube is inserted into the opening at the tip of the penis, which is the opening of the urethra. A tiny pellet of medicine is put in the urethra. The pellet dissolves and enhances erectile function. This is also called MUSE (medicated urethral system for erections) therapy. ??? Vacuum pump. This is a pump with a ring on it. The pump and ring are placed on the penis and used to create pressure that helps the penis become erect. ??? Penile implant surgery. In this procedure, you may receive: ? An inflatable implant. This consists of cylinders, a pump, and a reservoir. The cylinders can be inflated with a fluid that helps to create an erection, and they can be deflated after intercourse. ? A semi-rigid implant. This consists of two silicone rubber rods. The rods provide some rigidity. They are also flexible, so the penis can both curve downward in its normal position and become straight for sexual intercourse. ??? Blood vessel surgery to improve blood flow to the penis. During this procedure, a blood vessel from a different part of the body is placed into the penis to allow blood to flow around (bypass) damaged or blocked blood vessels. ??? Lifestyle changes, such as exercising more, losing weight, and quitting smoking. Follow these instructions at home: Medicines ??? Take asmx-opp-cdvtvyl and prescription medicines only as told by your health care provider. Do not increase the dosage without first discussing it with your health care provider. ??? If you are using self-injections, do injections as directed by your health care provider. Make sure you avoid any veins that are on the surface of the penis. After giving an injection, apply pressure to the injection site for 5 minutes. ??? Talk to your health care provider about how to prevent headaches while taking ED medicines. These medicines may cause a sudden headache due to the increase in blood flow in your body. General instructions ??? Exercise regularly, as directed by your health care provider. Work with your health care provider to lose weight, if needed. ??? Do not u (more content not included)... [facility] 06-29-2024 Hospital Discharge instructions Patient Education 06/29/2024 14:14:12 Prostate Cancer Screening Prostate Cancer Screening Prostate cancer screening is [...] recommendations. In general, screening is recommended if: You are age 50 to 70 and [...] have a 10- to 15-year life expectancy. You are younger than age 50, and you have these risk factors: ?Having a father, brother, or uncle who has been diagnosed with prostate cancer. The risk is higher if your family member's cancer occurred at an early age or if you have multiple family members with prostate cancer at an early age. ?Being a male who is Black or is of [place] or sub-Saharan descent. In general, screening is not recommended if: You are younger than age 40. You are between the ages of 40 and 49 and you have no risk factors. You are 70 years of age or [...] high PSA levels may be caused by: Prostate cancer. An enlarged prostate that is not caused by cancer (benign prostatic hyperplasia, or BPH). This condition is very common in older men. A prostate gland infection (prostatitis) or urinary tract infection. Certain medicines such as male hormones (like [...] you may need more tests, such as: A physical exam to check the size of your prostate gland, if not done as part of screening. Blood and imaging tests. A procedure to remove tissue samples from your prostate gland for testing (biopsy). This is the only way to know for certain if you have prostate cancer. What are the benefits of prostate cancer screening? Screening can help to identify cancer at an early stage, before symptoms start and when the cancer can be treated more easily. There is a small chance that screening [...] Questions to ask your health care provider When should I start prostate cancer screening? What is my risk for prostate cancer? How often do I need screening? What type of screening tests do I need? How do I get my test results? What do my results mean? Do I need treatment? Where to find more information The [place] [employer]: www.cancer.org [place] [employer]: www.auanet.org Contact a health care provider if: You have difficulty urinating. You have pain when you urinate or ejaculate. You have blood in your urine or semen. You have pain in your back or in the area of your prostate. Summary Prostate cancer is a common type of cancer in men. The prostate gland is located below the bladder and in front of the rectum. This gland adds fluid to semen during ejaculation. Prostate cancer screening may identify cancer at an early stage, when the cancer can be treated more easily and is less likely to have spread to other areas of the body. The prostate-specific antigen (PSA) test is the recommended screening test for prostate cancer, but it has associated risks. Discuss the risks and benefits of prostate cancer screening with your health care provider. If you are age 70 or older, the risks that screening can cause are greater than the benefits that it may provide. This information is not intended to replace advice given to you by your health care provider. Make sure you discuss any questions you have with your health care provider. Document Revised: 10/30/2021 Document Reviewed: 10/30/2021 [employer] Patient Education 2023 [employer]. Follow Up Care 06/25/2023 08:53:11 With:GIOVANNA FORD, GREG Egan, URL Address: [address] [place], [place] [address]dg[place] [address] When:Within 1 Year(s) [facility] 06-29-2024 Note Patient Education Oncology Prostate Cancer Screening Prostate [...] recommendations. In general, screening is recommended if: ??? You are age 50 to 70 and [...] have a 10- to 15-year life expectancy. ??? You are younger than age 50, and [...] In general, screening is not recommended if: ??? You are younger than age 40. ??? You are between the ages of 40 and 49 and you have no risk factors. ??? You are 70 years of age or [...] high PSA levels may be caused by: ??? Prostate cancer. ??? An enlarged prostate that is not caused by cancer (benign prostatic hyperplasia, or BPH). This condition is very common in older men. ??? A prostate gland infection (prostatitis) or urinary tract infection. ??? Certain medicines such as male hormones (like [...] you may need more tests, such as: ??? A physical exam to check the size of your prostate gland, if not done as part of screening. ??? Blood and imaging tests. ??? A procedure to remove tissue samples from your prostate gland for testing (biopsy). This is the only way to know for certain if you have prostate cancer. What are the benefits of prostate cancer screening? Screening can help to identify cancer at an early stage, before symptoms start and when the cancer can be treated more easily. ??? There is a small chance that screening [...] Questions to ask your health care provider ??? When should I start prostate cancer screening? What is my risk for prostate cancer? How often do I need screening? What type of screening tests do I need? How do I get my test results? What do my results mean? Do I need treatment? Where to find more information ??? The [place] [employer]: www.cancer.org ??? [place] [employer] Association: www.auanet.org Contact a health care provider if: ??? You have difficulty urinating. ??? You have pain when you urinate or ejaculate. ??? You have blood in your urine or semen. ??? You have pain in your back or in the area of your prostate. Summary ??? Prostate cancer is a common type of cancer in men. The prostate gland (more content not included)... [facility] 04-02-2024 Procedure note [facility] enter 03-11-2024 Evaluation note Diagnosis Onset Date Resolution Dysphagia acute March 11, 2024 1:56pm Epigastric abdominal pain acute March 11 1:56pm GERD (gastroesophageal reflux disease) acute March 11 1:56pm Sinusitis, acute maxillary acute April 22 10:02am [facility] Work Phone: 1(933) 200-719809-30-2024 Evaluation note* Diagnosis Onset Date Resolution Status Admit Date Coronary artery disease involving [place] coronary artery of [place] heart [place] acute Sept2023 10:55am Essential (primary) hypertension acute February 17, 2024 10:55am Mixed hyperlipidemia acute Jan ember 2023 10:55am Dysphagia acute March 11, 2024 1:56pm Epigastric abdominal pain acute March 11, 2024 1:56pm GERD (gastroesophageal reflu x disease) acute March 11 1:56pm [facility] Work Phone: 1(785) 577-168312-16-2023 Evaluation note* Encounter Date Diagnosis Assessment Notes [...] understanding and is agreeable to treatment plan [employer] Other 11-28-2023 Evaluation note* Encounter Date Diagnosis Assessment Notes Treatment Notes Treatment Clinical Notes Mar, Coronary artery disease involving [place] coronary artery of [place] heart without angina pectoris (ICD-10 - I25.10) Mr. Paez is a 68-year-old male with past medical history of hypertension and hyperlipidemia who presented to [facility] on 03/31/2023 as a transfer from [facility] with NSTEMI. He underwent LHC and was [...] I10) Mar, Mixed hyperlipidemia (ICD-10 - E78.2) [employer] Other 11-16-2023 Evaluation note* Encounter Date Diagnosis [...] to continue with above medication as directed. [employer] Other 11-14-2023 Hospital Discharge instructions Additional Instructions [...] doctor or pharmacist, without first calling the frame wirer who implanted the stent. If you require [...] weight lifting, stair steppers, etc. until the frame wirer approves these activities. Check with the frame wirer on your first follow-up visit. CALL YOUR PHYSICIAN at [phone]: -If bleeding should occur from the catheter insertion site- apply pressure to the site then immediately call us. -Report any fever, redness, drainage, increased swelling, or firmness at the catheter insertion site. Some bruising or slight swelling may be present at the time of discharge. -Should arm or leg become cold, numb, white, or blue, contact the frame wirer immediately. -IF you should experience episodes of [...] is recommended. Please call Central Scheduling at [phone] to schedule your appointment.] The attending frame wirer or [facility] nurse clinician should provide you with specific instructions regarding activity, diet, medications, and further follow up for you. Follow the medication instructions provided on your discharge. If the dosages and instructions on this sheet differ from the dosage and instructions on the bottle, follow the instructions on the bottle. [facility] is not responsible for incorrect prescription information provided by the patient during their visit. Do not stop your medications without consulting your health care provider. Please take the list with you to your next doctor's appointment.[facility] Work Phone: 1(988) 921-775711-13-2023 Progress note Author Shyam Rodriguez [facility] April 01, 2023 7:19pm Note Date/Time April 01, 2023 7:19pm [facility] [address] [place] [address] Hospitalist Progress Note Signed Patient: Rosalino Paez MR#: [id number] : 1955 Acct:[id number] Age/Sex: 68 / M Adm Date: 3 Loc: Room: [address] [place] [address] Type: ADM IN Attending Dr: Shyam Rodriguez [...] Dose Route Start Last Admin Trade Name Jesseeq PRN Reason Stop Dose Admin Acetaminophen 650 [...] % Nacl IV 04/01/23 19:29 80 mls/hr .[id number] RONDA Administration Lidocaine HCl 10 ml 04/01/23 [...] 90 Mg Tablet PO 03/31/24 20:59 BID RONDA A&P - Hospitalist Assessment/Plan (1) NSTEMI, initial episode of care: Plan: ? Patient was started on a heparin GTT ?Patient went to the Television Schedule Coordinator today ? A1c slightly elevated at 6.1 [...] <Electronically signed by Shyam Rodriguez DO> 04/01/231918 [facility] Work Phone: 1(212) 704-764611-13-2023 Consult note Author Inderjit Villegas [facility] April 01, 2023 5:49pm Note Date/Time April 01, 2023 5:49pm [facility] [address] [place] [address] Cardiology Consult Note Signed Patient: Rosalino Paez MR#: [id number] : 1955 Acct:[id number] Age/Sex: 68 / M Adm Date: 3 Loc: Room: [address] [place] [address] Type: ADM IN Attending Dr: Shyam Rodriguez DO Copies to: MD Shyam Kirby, DO Inderjit Villegas DO~ Cardiology HPI History of Present Illness [...] and 1 can consider PCSK29 inhibitor therapy [facility] Medical History (Updated 04/01/23 @ 10:59 by [...] x10E3/uL Lymph # (Auto) 1.1 (1.00-4.8) x10E3/uL [place] # (Auto) 0.7 (0.0-0.8) x10E3/uL Eos # [...] (primary) hypertension Documented By: Inderjit Villegas DO 04/01/231743 Signed By: <Electronically signed by Inderjit Villegas DO> 04/01/231748 [facility] Work Phone: 1([phone]) 616-954511-13-2023 Consult note Author Meagan Crespo [facility] April 01, 2023 3:59pm Note Date/Time April 01, 2023 3:47pm [facility] [address] [place] [address] Cardiology Consult Note Signed Patient: Rosalino Paez MR#: [id number] : 1955 Acct:[id number] Age/Sex: 68 / M Adm Date: 3 Loc: Room: [address] [place] [address] Type: ADM IN Attending Dr: Shyam Rodriguez DO Copies to: MD Marko Parry MD Shawn J Warner, DO~ Cardiology HPI History of Present Illness Consult Date: 04/01/23 Reason for Consult: NSTEMI HPI: Mr. Paez is a 68 year old male with PMH of HTN and HLD who presents as a transfer from [facility] for management of NSTEMI. He initially presentedwith 3 day history of intermittent exertional chest pain associated with nausea/vomiting that started while walking his dog. He denies associated shortness of breath, orthopnea, PND, palpitations, light headedness or syncope. The chest pain got progressively worse and presented to [place] where initial troponin was found to be 227 and trended up to 380. EKG showed TWI in aVL. He received ASA, Nitro and heparin gtt and was transferred to [facility]. On arrival, initial troponin was 330--->290. He currently denies any chest pain. He does not smoke. Has positive family history of premature CAD- Father and Brother. Reports having a stress test a year ago that was normal. Review of Systems Review of Systems All other systems reviewed & are negative unless noted below or in HPI [facility] Medical History (Updated 04/01/23 @ 10:59 by [...] x10E3/uL Lymph # (Auto) 1.1 (1.00-4.8) x10E3/uL [place] # (Auto) 0.7 (0.0-0.8) x10E3/uL Eos # [...] HLD who presents as a transfer from [facility] for management of NSTEMI. Assessment: NSTEMI HTN HLD Recommendations: - Proceed with [facility] today - Continue heparin gtt; ASA, Lipitor, Coreg and Losartan - ECHO- preliminary findings show normal EF 65-70% with normal regional wall motion - Aggressive risk factor modifications. - Will follow Documented By: Meagan Crespo MD 04/01/23 5884 Signed By: <Electronically signed by Meagan Crespo MD> 04/01/23 3229 [facility] Work Phone: 1(771) 614-487511-13-2023 [facility]2023 History and physical note Author Shyam Rodriguez [facility] March 31, 2023 8:43pm Note Date/Time March 31, 2023 8:39pm [facility] [address] [place] [address] Hospitalist H&P Signed Patient: Rosalino Paez MR#: [id number] : 1955 Acct:[id number] Age/Sex: 68 / M Adm Date: 3 Loc: Room: [address] [place] [address] Type: ADM IN Attending Dr: Shyam Rodriguez DO Copies to: MD Shyam Kirby, ~ HPI DATE OF EXAMINATION: 03/31/23 CHIEF COMPLAINT: [...] came to the emergency room. While at [facility] was initial troponins were found be elevated [...] Upon my assessment in the room Saturday the patient is asymptomatic and without any [...] <Electronically signed by Shyam Rodriguez DO> 03/31/232042 [facility] Work Phone: 1(291) 723-130610-27-2023 Evaluation note* Encounter Date Diagnosis Assessment Notes [...] verbalized understanding and agreement of treatment plan. [facility] Other 01-31-2023 Hospital Discharge instructions Patient Education [...] urethra. Follow these instructions at home: Take fvfe-dez-ijqycdr and prescription medicines only as told by [...] 05/06/2006 Document Revised: 03/31/2019 Document Reviewed: 06/10/2017 [employer] Patient Education 2020 [employer]. Follow Up Care 05/23/2021 09:20:36 With:Daniel Mckinnon MD, Chris Goel URO Address: [facility] [address], [place] [address]- When:1 year [facility] evaluation + Plan note Future Appointments Appointment Date:06/25/2023 08:30:00 AM Scheduled Provider:GREG HEREDIA PA-C Location:[facility] Appointment Type:URO Office Visit Diagnostic Tests Pending * PSA Total 06/19/22 [facility] evaluation + Plan note Future Appointments Appointment Date:06/25/2023 08:30:00 AM Scheduled Provider:GREG HEREDIA PA-C Location:[facility] Appointment Type:URO Office Visit Diagnostic Tests Pending * [facility] Future App[facility]ments Appointment Date:06/29/2025 09:00:00 AM Scheduled Provider: Location:[facility] Appointment Type:URO Nurse Visit Appointment Date:07/05/2025 08:20:00 AM Scheduled Provider:GREG HEREDIA PA-C Location:[facility] Appointment Type:URO Office Visit [facility] evaluation + Plan note Future Appointments Appointment Date:06/29/2025 09:00:00 AM Scheduled Provider: Location:[facility] Appointment Type:URO Nurse Visit Appointment Date:07/05/2025 08:20:00 AM Scheduled Provider:GREG HEREDIA PA-C Location:[facility] Appointment Type:URO Office Visit [facility]No [facility] [employer] Other evaluation note* Diagnosis Onset Date Resolution Status Hypertension acute NSTEMI, initial episode of care acute [facility] Work Phone: evaluation noteNo assessment information available [facility] Work Phone: Evaluation note* Diagnosis Onset Date Resolution Status [id number] acute Essential (primary) hypertension acute Mixed hyperlipidemia acute [facility] Work Phone: Evaluation note* Diagnosis Onset Date Resolution Status [id number] acute Essential (primary) hypertension acute Mixed hyperlipidemia acute Dysphagia acute Epigastric abdominal pain ac latrice GERD (gastroesophageal reflux disease) acute [facility] Work Phone: Hisvehd general Narrative - Reported* Type Description Date Medical History Allergic rhinitis Medical History Essential hypertension Medical History HLD (hyperlipidemia) Surgical History T&A Surgical History Turp 1998 Hospitalization History SEE SURGICAL HX [facility] [facility] general Narrative - Reported* Type Description Date Medical History Allergic rhinitis Medical History Essential hypertension Medical History HLD (hyperlipidemia) Medical History [place] Surgical History T&A Surgical History Turp 1998 Surgical History Heart Cath 03/2023 Hospitalization History SEE SURGICAL HX Hospitalization History [facility] 03/2023 [employer] Other Hisbyeo general Narrative - Reported* Type Description Date Medical History Allergic rhinitis Medical History Essential hypertension Medical History HLD (hyperlipidemia) Medical History [place] Surgical History T&A Surgical History Turp 1998 Surgical History Heart Cath/PCI 03/2023 Hospitalization History SEE SURGICAL HX Hospitalization History [facility] 03/2023 [employer] Other Hisydvm general Narrative - Reported* Type Description Date Medical History Allergic rhinitis Medical History Essential hypertension Medical History HLD (hyperlipidemia) Medical History [place] Surgical History T&A Surgical History Turp 1998 Surgical History Heart Cath/PCI 03/2023 Hospitalization History SEE SURGICAL HX Hospitalization History [facility] HEART ATTACK 2022 [employer] Other Hospital course Narrative No data available for this section [facility] Hospital Discharge instructions No data available for this section [facility] No data available for this section [facility] Summary Purpose Family History Relationship Condition Age [...] Chief Complaint 6 months Reason for Visit [id number] Essential (primary) hypertension Mixed hyperlipidemia Chief Complaint [address] Crespo: dysphagia Reason for Visit [id number] Essential (primary) hypertension Mixed hyperlipidemia Dysphagia Epigastric abdominal pain GERD (gastroesophageal reflux disease) Chief Complaint Admit Date 6 months February 17, 2024 10:55am Referred by Dr Crespo: dysphagia Octobe r 2023 1:56pm dysphagia/epigastric pain April 02, 2024 11:41am dysphagia/epigastric pain April 02, 2024 1:14pm Reason for Visit Admit Date Coronary artery disease invo lving [place] coronary artery of [place] heart wi February 17, 2024 10:55am Essential [...] Thank you Diagnosis 1 Acute recurrent maxi llphil sinusitis (J01.01) Referral Organization [facility] Referring Provider First Name Zina Referring Provider Last Name Dario Referring Provider Specialty Nurse Pract itioner Referred Organization [facility] Referred Address [address] [place], [place],[address] Referred Provider Specialty Ear, Nose an d Throat Referral Priority Urgent Additional Source Comments Patient Care team informatio n (unrecognized section and content) Personnel Name: MARKO CISNEROS MD Address: [address] [place] [id number] Telecom: Team Status: Active Member Role Status Dates Marko Cisneros MD Primary Care Provider Active Team Status: Inactive Member Role Status Dates Marko Cisneros MD Primary Care Provider Active Shyam [...] Status: Active Member Role Status Dates Meagan Cerspo MD Applications Support Lead Active Marko Cisneros MD Primary Care Provider [...] 2024 Team Status: Active Member Role Status Dates Marko Cisneros MD Primary Care Provider Active Start: April 02, 2024 Carolyn Mccartney MD Attending Provider, Other Provider Active Start: April 02, 2024 Team Status: Inactive Member Role Status Dates Marko Cisneros MD Primary Care Provide r, Attending [...] content) echostress testPossible Ear InfectionTCospital follow up- [facility] 2 WKhead cold (unrecognized sect ion and content) No Status Records FoundNo Status Records FoundNo Status Records FoundNo Status Records Found INFORMATION SOURCE (unrecogn ized section and content) DATE CREATED AUTHOR 08/13/2022 [facility] DATE CREATED AUTHOR AUTHOR'S ORGANIZ ATION 05/09/2023 [facility] EPIC DATE CREATED AUTHOR AUTHOR'S ORGANIZ ATION 04/12/2024 [facility] DATE CREATED AUTHOR AUTHOR'S ORGANIZ ATION 10/27/2024 [facility] Goals (unrecognized section and content) Goals may [...] BE BASED ON THE PRIMARY CLINICAL RECORDS. [employer] [facility]. provides no warranty or guarantee of the accuracy or completeness of information in this document.
[2024-11-04 08:43] LABS: Basophils Absolute Auto 0.1 10^3/uL (0.0-0.1); Basophils Percent Auto 0.8 % (0.2-2.0); Eosinophils Absolute Auto 1.2 10^3/uL (0.0-0.7); Eosinophils Percent Auto 13.2 % (0.9-7.0); Hematocrit 43.3 % (42.0-54.0); Immature Granulocytes Abs Auto 0.02 10^3/uL (0.00-0.03); Immature Granulocytes Pct Auto 0.2 % (0.0-0.5); Lymphocytes Absolute Auto 1.3 10^3/uL (1.2-3.8); Lymphocytes Percent Auto 14.5 % (20.5-60.0); Mean Corpuscular HGB Conc 34.6 g/dL (29.9-35.2); Mean Corpuscular Hemoglobin 31.9 pg (25.9-34.0); Mean Corpuscular Volume 92.1 fL (80.0-94.0); Mean Platelet Volume 9.6 fL (9.5-13.5); Monocytes Absolute Auto 0.8 10^3/uL (0.3-0.8); Monocytes Percent Auto 8.9 % (1.7-12.0); Neutrophils Absolute Auto 5.4 10^3/uL (1.4-6.5); Neutrophils Percent Auto 62.4 % (43.0-75.0); Platelet Count 222 10^3/uL (150-450); Red Cell Distribution Width 12.2 % (11.0-15.0); White Blood Count 8.7 10^3/uL (4.0-11.0)
[2024-11-04 09:07] LABS: Creatinine Urine Random 153.88 mg/dL (20.00-300.00); Microalbumin Urine Random <1.3 mg/dL (<=30.0)
[2024-11-04 09:19] LABS: Alanine Aminotransferase 34 U/L (16-63); Albumin Globulin Ratio 1.2; Albumin Level 3.9 g/dL (3.4-5.0); Alkaline Phosphatase 99 U/L (46-116); Anion Gap 11.9; Aspartate Amino Transferase 22 U/L (15-37); BUN Creatinine Ratio 14.3; Bilirubin Total 0.6 mg/dL (0.2-1.0); Calcium 9.2 mg/dL (8.5-10.1); Carbon Dioxide 29.4 mmol/L (21.0-32.0); Chloride 104 mmol/L (98-107); Chol HDL Ratio 3.4; Cholesterol 131 mg/dL (<=200); Estimated GFR (African America >60 (>=60 mL/min/1.73m^2); Estimated GFR (Non-African Ame >60 (>=60 mL/min/1.73m^2); Globulin 3.2 g/dL; Glucose 133 mg/dL (74-106); HDL Cholesterol 39 mg/dL (40-60); Potassium 4.3 mmol/L (3.5-5.1); Sodium 141 mmol/L (136-145); Total Protein 7.1 g/dL (6.4-8.2); Triglycerides 106 mg/dL (<=150); VLDL CHOLESTEROL 21.2 mg/dL
== END 2024-11-04 08:16 | disposition home or self-care (01) ==
PROVIDERS: PCP Family Medicine; Visit Provider Family Medicine
DX: E78.2 Mixed hyperlipidemia (principal); I10 Essential (primary) hypertension
CPT/HCPCS: 36415; 80053; 80061; 82043; 82570; 85025